=== PATIENT | male | born 1945 | race Caucasian/White ===

== ENCOUNTER 2016-06-24 13:59 | Inpatient (IN) | payer OTHER ==
[~2016-06-24] VITALS: Ht 175.3 cm; Wt 117.7 kg
[~2016-06-24 13:59] MED LIST: AGG PO; ASPI81TA28 PO; CHOL100027 PO; DONE5TAB9 PO; GLUC750C4 PO; INSUINJ14 SC; INSUINJ4 SQ; LISI-729 PO; LPT/40 PO; METF-384 PO; METO50TA16 PO; NIAC750T4 PO; OMEG12006 PO
[2016-06-24] MEDS ORDERED: ALBUT/IPRATROP 3MG/0.5MG NEB 3 ML VIAL INH STA (14:21)
[2016-06-24] MEDS ORDERED: ACETAMINOPHEN 500 MG TAB PO STA (14:21)
[2016-06-24 14:30] LABS: HEMATOCRIT 42.7 % (42-52); MEAN CELL VOLUME 93.8 fL (80-100); MEAN CORPUSCULAR HEMOGLOBIN 31.9 pg (25-34); MEAN PLATELET VOLUME 9.5 fL (7.4-10.4); PLATELET COUNT 119 K/uL (130-400); RED BLOOD COUNT 4.55 M/uL (4.7-6.1); WHITE BLOOD COUNT 8.34 K/uL (4.8-10.8)
--- NOTE | 2016-06-24 14:44 | DIAGNOSTIC IMAGING REPORT ---
SINGLE VIEW CHEST CLINICAL HISTORY: Fever. FINDINGS: An AP, portable, upright chest radiograph is compared to study dated 12/15/2015 and correlated with chest CT dated 06/23/2011. The examination is degraded by portable technique, apical positioning, and patient rotation. The heart is mildly enlarged and there is atherosclerotic calcification of the thoracic aorta. The pulmonary vasculature is noncongested. Emphysema and chronic interstitial thickening is similar to previous. Scarring and postoperative change is again seen in the left upper lobe. A trace left pleural effusion is identified. No airspace consolidation is seen typical for pneumonia. No pneumothorax is seen. The skeletal structures are osteopenic. Degenerative change is noted throughout the thoracic spine. IMPRESSION: 1. Emphysema with scarring/postoperative change in the left upper lobe. This is similar to previous. 2. There is no airspace consolidation typical for pneumonia. 3. A small pleural effusion is again noted. Electronically signed by: Rudolph Valentino M.D. 06/24/2016 2:43 PM Dictated Date/Time: 06/24/2016 2:40 PM
[2016-06-24 14:47] LABS: BUN/CREATININE RATIO 14.3 (10-20); CALCIUM 8.4 mg/dl (8.5-10.1); CREATININE 1.1 mg/dl (0.60-1.40); MAGNESIUM 1.9 mg/dl (1.8-2.4); POTASSIUM 4.2 mmol/L (3.5-5.1)
[2016-06-24 14:52] LABS: CKMB/CK RATIO 0.2 (0-3.0)
[2016-06-24 14:59] LABS: BASO % 0.1 %; BASO ABS # 0.01 K/uL (0-0.2); COMPLETE YES; IG% 0.2 %; LYMPH % 9.8 %; LYMPH ABS # 0.82 K/uL (1.2-3.4); MONO % 12.5 %; NEUT % 77.4 %
[2016-06-24] MEDS ORDERED: SODIUM CHLORIDE 0.9% 500ML 500 ML IV STA (15:21)
[2016-06-24] MEDS ORDERED: PIPERACILLIN/TAZOBACTAM 4.5 GM/100ML D5W IV STA (15:21)
[2016-06-24 15:57] LABS: URINE APPEARANCE CLEAR (CLEAR); URINE BILIRUBIN NEG (NEG); URINE COLOR DK YELLOW; URINE NITRITE NEG (NEG); URINE SPECIFIC GRAVITY 1.031 (1.000-1.030); UROBILINOGEN NEG (NEG); ZZURINE CULT IF INDIC CATH NO
[2016-06-24 15:58] LABS: MANUAL MICROSCOPIC REQUIRED? NO; REVIEW REQ? NO
[2016-06-24] MEDS ORDERED: OSELTAMIVIR PHOSPHATE 75 MG CAP PO STA (16:21)
--- NOTE | 2016-06-24 16:27 | EMERGENCY ROOM VISIT NOTE ---
History Report prepared by Kasandra: Lottie Greenberg Under the Supervision of: Dr. Guillermo Blanchard M.D. First contact with patient: 14:10 Chief Complaint: ILLNESS Stated Complaint: GENERALIZED WEAKNESS History of Present Illness The patient is a 71 year old male who presents to the Emergency Room with complaints of increased weakness that began several days ago. Per the patient' s , the patient has a history of dementia. She notes that the patient has been increasingly confused this morning. The patient's notes that the patient has been battling a cough, cold over the past several days. She notes that the patient complained of a sore throat on Tuesday and has been feeling shaky. The patient's notes that the patient's weakness has been increasing. She states that today she found the patient covered in urine. The patient's states that the patient slid out of bed today and was on the floor for about a half hour before EMS arrived to assist. She states that the patient has had a decrease in appetite and did not eat this morning. The patient's notes that the patient's blood glucose level was 105 this morning. She states that the patient has a history of diabetes, strokes, and pneumonia. The patient's denies the patient having any recent weight gain. The patient denies any chest pain or headache. Source of History: patient, spouse/significant other () Onset: several days ago Position: other (global) Quality: other (weakness) Timing: other (increasing) Associated Symptoms: + chills, + cough, + sorethroat, No chest pain, No headache Note: Associated Symptoms: increasing confusion, shaky, decrease in appetite Review of Systems See HPI for pertinent positives & negatives. A total of 10 systems reviewed and were otherwise negative. Past Medical & Surgical Medical Problems: (1) CAD (coronary artery disease) (2) Carotid stenosis (3) DM2 (diabetes mellitus, type 2) (4) History of left heart catheterization (LHC) (5) HLD (hyperlipidemia) (6) NSTEMI (non-ST elevated myocardial infarction) (7) CAROLYNN (obstructive sleep apnea) (8) SIRS (systemic inflammatory response syndrome) (9) Syncope and collapse (10) thoracoscopy (11) TIA (transient ischemic attack) (12) TIA (transient ischemic attack) (13) Vascular dementia Surgical Problems: (1) H/O carotid endarterectomy (2) H/O shoulder surgery (3) S/P drug eluting coronary stent placement Family History Diabetes mellitus FH: heart disease Hypertension Social History Smoking Status: Former Smoker Drug Use: none Marital Status: Housing Status: lives with significant other Occupation Status: retired Current/Historical Medications Scheduled Aspirin (Aspirin Ec), 81 MG PO BID Aspirin-Dipyridamole 25MG/200MG (Aggrenox 200MG/25MG), 1 CAP PO BID Atorvastatin (Lipitor), 40 MG PO DAILY Donepezil HCl (Aricept), 1 TAB PO HS Insulin Aspart (Novolog Penfill), UNITS SC ACHS Insulin Glargine (Lantus Solostar Pen), 60 UNIT SQ HS Lisinopril (Zestril), 2.5 MG PO DAILY Metformin Hcl (Glucophage), 1,000 MG PO BID Metoprolol Tartrate (Lopressor) (Lopressor), 12.5 MG PO BID Niacin (Slo-Niacin), 750 MG PO BID Allergies Coded Allergies: Clopidogrel (Verified Allergy, Unknown, Skin peeling on hands., 06/24/16) Reported by . Physical Exam Vital Signs Date Time Temp Pulse Resp B/P Pulse Ox O2 Delivery O2 Flow Rate FiO2 06/24/16 15:51 103 14 102/49 92 Nasal Cannula 2.0 06/24/16 14:07 105 06/24/16 14:03 39.1 105 30 174/81 88 Room Air Physical Exam GENERAL: Patient is ill appearing, moderate distress, improving on oxygen. Patient is warm to touch. HEENT: No acute trauma, normocephalic atraumatic, mucous membranes moist, no nasal congestion, no scleral icterus. NECK: No stridor, no adenopathy, no meningismus, trachea is midline. LUNGS: Junky cough with crackles, all lung salmon. HEART: Tachycardic rate and regular rhythm. No murmurs, rubs, gallops appreciated. ABDOMEN: Soft, nontender, bowel sounds positive, no masses appreciated, no peritonitis. BACK: No midline tenderness, no CVA tenderness EXTREMITIES: Normal motion all extremities, no cyanosis, no edema. NEUROLOGIC: Alert somewhat oriented, at baseline per . Dementia noted. SKIN: No rash, no jaundice, no diaphoresis. Medical Decision & Procedures ER Provider Diagnostic Interpretation: X ray results are stated below per my interpretation and the radiologist's interpretation. SINGLE VIEW CHEST CLINICAL HISTORY: Fever. FINDINGS: An AP, portable, upright chest radiograph is compared to study dated 12/15/2015 and correlated with chest CT dated 06/23/2011. The examination is degraded by portable technique, apical positioning, and patient rotation. The heart is mildly enlarged and there is atherosclerotic calcification of the thoracic aorta. The pulmonary vasculature is noncongested. Emphysema and chronic interstitial thickening is similar to previous. Scarring and postoperative change is again seen in the left upper lobe. A trace left pleural effusion is identified. No airspace consolidation is seen typical for pneumonia. No pneumothorax is seen. The skeletal structures are osteopenic. Degenerative change is noted throughout the thoracic spine. IMPRESSION: 1. Emphysema with scarring/postoperative change in the left upper lobe. This is similar to previous. 2. There is no airspace consolidation typical for pneumonia. 3. A small pleural effusion is again noted. Electronically signed by: Rudolph Valentino M.D. 06/24/2016 2:43 PM Dictated Date/Time: 06/24/2016 2:40 PM Laboratory Results 06/24/16 14:10 Red Blood Count 4.55, Mean Corpuscular Volume 93.8, Mean Corpuscular Hemoglobin 31.9, Mean Corpuscular Hemoglobin Concent 34.0, Mean Platelet Volume 9.5, Neutrophils (%) (Auto) 77.4, Lymphocytes (%) (Auto) 9.8, Monocytes (%) (Auto) 12.5, Eosinophils (%) (Auto) 0.0, Basophils (%) (Auto) 0.1, Neutrophils # (Auto ) 6.45, Lymphocytes # (Auto) 0.82, Monocytes # (Auto) 1.04, Eosinophils # (Auto ) 0.00, Basophils # (Auto) 0.01 06/24/16 14:10 Test 06/24/16 14:10 06/24/16 15:01 06/24/16 15:08 06/24/16 15:25 White Blood Count 8.34 K/uL (4.8-10.8) Red Blood Count 4.55 M/uL (4.7-6.1) Hemoglobin 14.5 g/dL (14.0-18.0) Hematocrit 42.7 % (42-52) Mean Corpuscular Volume 93.8 fL (80-100) Mean Corpuscular Hemoglobin 31.9 pg (25-34) Mean Corpuscular Hemoglobin Concent 34.0 g/dl (32-36) Platelet Count 119 K/uL (130-400) Mean Platelet Volume 9.5 fL (7.4-10.4) Neutrophils (%) (Auto) 77.4 % Lymphocytes (%) (Auto) 9.8 % Monocytes (%) (Auto) 12.5 % Eosinophils (%) (Auto) 0.0 % Basophils (%) (Auto) 0.1 % Neutrophils # (Auto) 6.45 K/uL (1.4-6.5) Lymphocytes # (Auto) 0.82 K/uL (1.2-3.4) Monocytes # (Auto) 1.04 K/uL (0.11-0.59) Eosinophils # (Auto) 0.00 K/uL (0-0.5) Basophils # (Auto) 0.01 K/uL (0-0.2) RDW Standard Deviation 49.2 fL (36.4-46.3) RDW Coefficient of Variation 14.4 % (11.5-14.5) Immature Granulocyte % (Auto) 0.2 % Immature Granulocyte # (Auto) 0.02 K/uL (0.00-0.02) Prothrombin Time 11.0 SECONDS (9.0-12.0) Prothromb Time International Ratio 1.0 (0.9-1.1) Anion Gap 11.0 mmol/L (3-11) Est Creatinine Clear Calc Drug Dose 79.4 ml/min Estimated GFR () 77.3 Estimated GFR (Non- 66.7 BUN/Creatinine Ratio 14.3 (10-20) Calcium Level 8.4 mg/dl (8.5-10.1) Magnesium Level 1.9 mg/dl (1.8-2.4) Total Bilirubin 0.6 mg/dl (0.2-1) Direct Bilirubin 0.1 mg/dl (0-0.2) Aspartate Amino Transf (AST/SGOT) 27 U/L (15-37) Alanine Aminotransferase (ALT/SGPT) 24 U/L (12-78) Alkaline Phosphatase 54 U/L (45-117) Total Creatine Kinase 545 U/L (39-308) Creatine Kinase MB 0.9 ng/ml (0.5-3.6) Creatine Kinase MB Ratio 0.2 (0-3.0) Troponin I 0.017 ng/ml (0-0.045) Total Protein 6.9 gm/dl (6.4-8.2) Albumin 3.3 gm/dl (3.4-5.0) Bedside Lactic Acid Venous 1.29 mmol/L (0.90-1.70) Influenza Type A Antigen POS for Influ A (NEG) Influenza Type B Antigen Neg for Influ B (NEG) Urine Color DK YELLOW Urine Appearance CLEAR (CLEAR) Urine pH 5.0 (4.5-7.5) Urine Specific [place] 1.031 (1.000-1.030) Urine Protein 3+ (NEG) Urine Glucose (UA) 2+ (NEG) Urine Ketones 1+ (NEG) Urine Occult Blood 2+ (NEG) Urine Nitrite NEG (NEG) Urine Bilirubin NEG (NEG) Urine Urobilinogen NEG (NEG) Urine Leukocyte Esterase NEG (NEG) Urine WBC (Auto) 1-5 /hpf (0-5) Urine RBC (Auto) 0-4 /hpf (0-4) Urine Hyaline Casts (Auto) 5-10 /lpf (0-5) Urine Epithelial Cells (Auto) 10-20 /lpf (0-5) Urine Bacteria (Auto) NEG (NEG) Laboratory results as reviewed by me. Medications Administered Medications (Trade) Dose Ordered Sig/Atiya Route Start Time Stop Time Status Last Admin Dose Admin Acetaminophen (Tylenol Tab) 1,000 mg NOW STAT PO 06/24/16 14:21 06/24/16 14:22 DC 06/24/16 14:45 1,000 MG Albuterol/ Ipratropium (Duoneb) 3 ml NOW STAT INH 06/24/16 14:21 06/24/16 14:22 DC 06/24/16 14:46 3 ML Piperacillin Sod/ Tazobactam Sod 4.5 gm 4.5 gm NOW STAT IV 06/24/16 15:21 06/24/16 15:23 DC 06/24/16 15:57 4.5 GM Sodium Chloride (Nss 500ml) 500 ml @ 999 mls/hr Q31M STAT IV 06/24/16 15:21 06/24/16 15:51 DC 06/24/16 15:51 999 MLS/HR ECG Indication: altered mental status Rate (beats per minute): 107 Rhythm: sinus tachycardia Findings: no acute ischemic change, no ectopy ED Course 1415: The patient was evaluated in room A4A. A complete history and physical exam was performed. 1421: Ordered DuoNeb 3 ml INH, Tylenol Tab 1000 mg PO. 1521: Ordered Sodium Chloride 500 ml @! 999 mls/hr IV, Zosyn IV 4.5 gm IV. 1607: I reevaluated the patient and he currently has an oxygen saturation of 92 % on 2 liters nasal cannula oxygen. The patient's feels that the patient is better mentally, but still has a junky cough. I discussed all the exam findings and I discussed the treatment plan. They both verbalized complete understanding and agreement. The patient will be evaluated for further treatment. 1608: I discussed the patients case with Melecio Cagle. He is going to evaluate the patient for further treatment. Medical Decision Differential: Viral, Pharyngitis, Cellulitis, Pneumonia, Influenza, Meningitis, Sepsis, Bacteremia, UTI/Pyelonephritis, Endocrine, Toxicologic, amongst other pathologies entertained. 71 yr old male arrives with fevers, confusion, cough. Hypoxia on arrival which improved with NC along with improvement in his mental status. Given fluids with improvement in HR. For temp tylenol given. noting patient back to baseline. He is too weak for her to care for at home and with hypoxia it would not be reasonable to discharge. Lungs quite poor thus given IV abx empirically. Flu returned positive thus given Tamiflu as well. Blood cultures were obtained. Lactic acid not significantly elevated. UA with ketones though no overt infection. No falls/injury and with source of infection/confusion seems reasonable to hold on CT head at this time. Consults Time Called: 1607 Consulting Physician: Melecio Cagle Returned Call: 1608 I discussed the patients case with Melecio Cagle. He is going to evaluate the patient for further treatment. Impression Primary Impression: Hypoxia Additional Impressions: Fever Altered mental status Influenza A Scribe Attestation The scribe's documentation has been prepared under my direction and personally reviewed by me in its entirety. I confirm that the note above accurately reflects all work, treatment, procedures, and medical decision making performed by me. Departure Information Dispostion Being Evaluated By Hospitalist Referrals Jabari Rodriguez M.D. (PCP) Problem Qualifiers Additional Impressions: Fever Fever type: unspecified Qualified Codes: R50.9 - Fever, unspecified Altered mental status Altered mental status type: transient alteration of awareness Qualified Codes : R40.4 - Transient alteration of awareness
[2016-06-24] MEDS ORDERED: ONDANSETRON INJ 2 MG/ML 2 ML VIAL IV PRN (16:45)
[2016-06-24] MEDS ORDERED: LEVALBUTEROL 1.25MG/3ML NEB INH PRN (16:45)
[2016-06-24] MEDS ORDERED: ACETAMINOPHEN 325 MG TAB PO PRN (16:45)
[2016-06-24] MEDS ORDERED: GLUCOSE 40% GEL 15 GM TUBE PO PRN (17:00)
[2016-06-24] MEDS ORDERED: GLUCOSE 10 TABS/TUBE PO PRN (17:00)
[2016-06-24] MEDS ORDERED: GLUCAGON FOR INJ 1 MG VIAL SQ PRN (17:00)
[2016-06-24] MEDS ORDERED: DEXTROSE 50% 50 ML SYR IV PRN (17:00)
[2016-06-24] MEDS ORDERED: GUAIFENESIN/CODEINE 100MG/10MG 5ML UDC PO PRN (17:30)
--- NOTE | 2016-06-24 17:30 | History and Physical ---
History & Physical Date & Time of Service: Jun 24, 2016 at 16:57 Chief Complaint: Generalized Weakness Primary Care Physician: Jabari Rodriguez M.D. History of Present Illness Source: patient, family, clinic records, hospital records Patient seen and examined. 71 year old male with PMHx of Dementia, IDDM, CAD, HTN, COPD, TIA, CAROLYNN and other problems listed below presents to the ED with generalized weakness x 1 day. Patient reports he has been having URI like symptoms for about a week, a cough, rhinorrhea sore throat. Today he has become generally weak. reports that this morning he slid out of bed and he wasn't able to get up without help. She reports he has been sleeping a lot and shaky. She states he has no strength and poor po intake. She reports he has had fevers at home around 101. Patient denies chest pain, SOB, nausea, vomiting, diarrhea, dysuria, calf pain and edema. He denies sick contacts. reports confusion is at baseline. He received the flu vaccine this year. In the ED patient is mildly tachycardic, he is febrile at 102.38F, he is mildly hypoxic on RA but saturating well on 2L NC. WBC count and lactate are WNL. Flu swab is positive for Flu A. He received IVFs, Zosyn and Tylenol and Tamiflu. He is resting comfortably. He will be admitted for further workup and treatment. Past Medical/Surgical History Medical Problems: (1) CAD (coronary artery disease) Status: Chronic (2) Carotid stenosis Status: Chronic (3) DM2 (diabetes mellitus, type 2) Status: Chronic (4) History of left heart catheterization (LHC) Status: Chronic (5) HLD (hyperlipidemia) Status: Chronic (6) NSTEMI (non-ST elevated myocardial infarction) Status: Chronic (7) CAROLYNN (obstructive sleep apnea) Status: Chronic (8) thoracoscopy Permanent Comment: benign mass-left lung. wedge resection/VATS Status: Chronic (9) TIA (transient ischemic attack) Status: Chronic (10) Vascular dementia Status: Chronic Surgical Problems: (1) H/O carotid endarterectomy Status: Chronic (2) H/O shoulder surgery Status: Chronic (3) S/P drug eluting coronary stent placement Permanent Comment: RCA 2012 Status: Chronic Family History Diabetes mellitus FH: heart disease Hypertension Social History Smoking Status: Former Smoker Alcohol Use: none Drug Use: none Marital Status: Housing status: lives with family Occupational Status: retired Immunizations History of Influenza Vaccine: Yes Influenza Vaccine Date: Mar 29, 2013 History of Tetanus Vaccine?: Yes Tetanus Immunization Date: May 29, 2013 History of Pneumococcal: Yes Pneumococcal Date: Mar 29, 2013 History of Hepatitis B Vaccine: No Allergies Coded Allergies: Clopidogrel (Verified Allergy, Unknown, Skin peeling on hands., 06/24/16) Reported by . Home Medications Scheduled Aspirin (Aspirin Ec), 81 MG PO BID Aspirin-Dipyridamole 25MG/200MG (Aggrenox 200MG/25MG), 1 CAP PO BID Atorvastatin (Lipitor), 40 MG PO DAILY Donepezil HCl (Aricept), 1 TAB PO HS Insulin Aspart (Novolog Penfill), UNITS SC ACHS Insulin Glargine (Lantus Solostar Pen), 60 UNIT SQ HS Lisinopril (Zestril), 2.5 MG PO DAILY Metformin Hcl (Glucophage), 1,000 MG PO BID Metoprolol Tartrate (Lopressor) (Lopressor), 12.5 MG PO BID Niacin (Slo-Niacin), 750 MG PO BID Review of Systems See above for pertinent positives & negatives. A total of 10 systems reviewed and were otherwise negative. Physical Exam Vital Signs Date Time Temp Pulse Resp B/P Pulse Ox O2 Delivery O2 Flow Rate FiO2 06/24/16 15:51 103 14 102/49 92 Nasal Cannula 2.0 06/24/16 14:07 105 06/24/16 14:03 39.1 105 30 174/81 88 Room Air General Appearance: + pertinent finding Head: normocephalic, atraumatic Eyes: PERRL, EOMI, sclerae normal ENT: hearing grossly normal, pharynx normal Neck: supple, no JVD Respiratory/Chest: chest non-tender, lungs clear, normal breath sounds, no respiratory distress, no accessory muscle use, + pertinent finding (coughed throughout exam ) Cardiovascular: no edema, no gallop, no JVD, no murmur, normal peripheral pulses, + tachycardia (low 100s) Abdomen/GI: normal bowel sounds, non tender, soft Back: normal inspection, no muscle spasm Extremities/Musculoskelatal: no calf tenderness, normal capillary refill, no pedal edema Neurologic/Psych: alert, oriented x 3, + pertinent finding (no motor or sensory deficits noted on gross exam ) Skin: normal color, warm/dry, no rash Lymphatic: no adenopathy Diagnostics Laboratory Results Results Past 24 Hours Test 06/24/16 14:10 06/24/16 15:01 06/24/16 15:08 06/24/16 15:25 Range/Units White Blood Count 8.34 4.8-10.8 K/uL Red Blood Count 4.55 4.7-6.1 M/uL Hemoglobin 14.5 14.0-18.0 g/dL Hematocrit 42.7 42-52 % Mean Corpuscular Volume 93.8 80-100 fL Mean Corpuscular Hemoglobin 31.9 25-34 pg Mean Corpuscular Hemoglobin Concent 34.0 32-36 g/dl Platelet Count 119 130-400 K/uL Mean Platelet Volume 9.5 7.4-10.4 fL Neutrophils (%) (Auto) 77.4 % Lymphocytes (%) (Auto) 9.8 % Monocytes (%) (Auto) 12.5 % Eosinophils (%) (Auto) 0.0 % Basophils (%) (Auto) 0.1 % Neutrophils # (Auto) 6.45 1.4-6.5 K/uL Lymphocytes # (Auto) 0.82 1.2-3.4 K/uL Monocytes # (Auto) 1.04 0.11-0.59 K/uL Eosinophils # (Auto) 0.00 0-0.5 K/uL Basophils # (Auto) 0.01 0-0.2 K/uL RDW Standard Deviation 49.2 36.4-46.3 fL RDW Coefficient of Variation 14.4 11.5-14.5 % Immature Granulocyte % (Auto) 0.2 % Immature Granulocyte # (Auto) 0.02 0.00-0.02 K/uL Prothrombin Time 11.0 9.0-12.0 SECONDS Prothromb Time International Ratio 1.0 0.9-1.1 Sodium Level 136 136-145 mmol/L Potassium Level 4.2 3.5-5.1 mmol/L Chloride Level 99 98-107 mmol/L Carbon Dioxide Level 26 21-32 mmol/L Anion Gap 11.0 3-11 mmol/L Blood Urea Nitrogen 16 7-18 mg/dl Creatinine 1.10 0.60-1.40 mg/dl Est Creatinine Clear Calc Drug Dose 79.4 ml/min Estimated GFR () 77.3 Estimated GFR (Non- 66.7 BUN/Creatinine Ratio 14.3 10-20 Random Glucose 171 70-99 mg/dl Calcium Level 8.4 8.5-10.1 mg/dl Magnesium Level 1.9 1.8-2.4 mg/dl Total Bilirubin 0.6 0.2-1 mg/dl Direct Bilirubin 0.1 0-0.2 mg/dl Aspartate Amino Transf (AST/SGOT) 27 15-37 U/L Alanine Aminotransferase (ALT/SGPT) 24 12-78 U/L Alkaline Phosphatase 54 45-117 U/L Total Creatine Kinase 545 39-308 U/L Creatine Kinase MB 0.9 0.5-3.6 ng/ml Creatine Kinase MB Ratio 0.2 0-3.0 Troponin I 0.017 0-0.045 ng/ml Total Protein 6.9 6.4-8.2 gm/dl Albumin 3.3 3.4-5.0 gm/dl Bedside Lactic Acid Venous 1.29 0.90-1.70 mmol/L Influenza Type A Antigen POS for Influ A NEG Influenza Type B Antigen Neg for Influ B NEG Urine Color DK YELLOW Urine Appearance CLEAR CLEAR Urine pH 5.0 4.5-7.5 Urine Specific [place] 1.031 1.000-1.030 Urine Protein 3+ NEG Urine Glucose (UA) 2+ NEG Urine Ketones 1+ NEG Urine Occult Blood 2+ NEG Urine Nitrite NEG NEG Urine Bilirubin NEG NEG Urine Urobilinogen NEG NEG Urine Leukocyte Esterase NEG NEG Urine WBC (Auto) 1-5 0-5 /hpf Urine RBC (Auto) 0-4 0-4 /hpf Urine Hyaline Casts (Auto) 5-10 0-5 /lpf Urine Epithelial Cells (Auto) 10-20 0-5 /lpf Urine Bacteria (Auto) NEG NEG Microbiology Results 06/24/16 Blood Culture, Received Pending 06/24/16 Blood Culture, Received Pending Diagnostic Radiology CXR Per radiologist read: IMPRESSION: 1. Emphysema with scarring/postoperative change in the left upper lobe. This is similar to previous. 2. There is no airspace consolidation typical for pneumonia. 3. A small pleural effusion is again noted. EKG Sinus Tach 107 BPM, QTc 424 Impression Assessment and Plan 71 year old male presents to the ED with URI symptoms, and generalized weakness. INFLUENZA A -Admit to tele -Tamiflu started in ED -Gentle IVF hydration -Tylenol prn fever -cough suppressants, nebs prn -CBC, PRP, Mg daily SIRS - presents with Fever, Tachycardia -no leukocytosis, lactate normal -CXR without obvious infection, UA negative -Does have Influenza A - treatment as above -Empirically treat for bacteria infection -pulmonary source with Doxycycline and Rocephin -Sputum and blood cultures pending -monitor in tele GENERALIZED WEAKNESS -likely secondary to acute illness -PT/OT evals IDDM -A1c 9 -SSI coverage -Decrease Lantus to avoid hypoglycemia with poor po intake -hold metformin -BSG AC HS -consistent carb diet CAD -stable -continue ASA, Statin, BB HTN -stable -continue BB -hold lisinopril to avoid hypotension CAROLYNN -may use home CPAP, went to bring HLD -continue Statin H/O TIA -continue Aggrenox, and statin DEMENTIA -at baseline per -continue Aricept DVT PROPHYLAXIS: Sq Heparin CODE STATUS: FULL CODE per my discussion with the patient and his DISPO:In my clinical judgment this beneficiary meets acute admission criteria, established by [facility], that includes being hospitalized through two midnights. Discharge planning eval Patient seen in collaboration with Dr. Strickland Agree with above h and P.Briefly 71Y M presented with URI symptoms for one week generalized weakness for a day and today slid down from bed and couldn't get up and running fevers and was brought to ER.Found to have influenz a postive. Denies sob or chest pain. BP stable. 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 Y/N: Yes Risk Level: Moderate
[2016-06-24 21:27] VITALS: BP 150/74; PULSE 91; TEMP 37.3; Ht 175.3 cm; Wt 117.7 kg
[2016-06-24 21:34] VITALS: O2SAT 93
[2016-06-24] MEDS: INSULIN ASPART 100 UNITS/ML 3 ML PEN SC SCH (22:00)
[2016-06-24] MEDS: SODIUM CHLORIDE 0.9% 1000ML 1,000 ML IV SCH (22:03)
[2016-06-24] MEDS: CEFTRIAXONE SOD INJ 1 GM in DEXTROSE 5% ADD-VANTAGE 50ML 50 ML IV SCH (22:34)
[2016-06-24] MEDS: DIPYRIDAMOLE/ASPIRIN CAP PO SCH (22:35)
[2016-06-24] MEDS: DONEPEZIL HCL 5 MG TAB PO SCH (22:35)
[2016-06-24] MEDS: ASPIRIN 81 MG ECTAB PO SCH (22:35)
[2016-06-24] MEDS: DOXYCYCLINE HYCLATE 100 MG CAP PO SCH (22:36)
[2016-06-24] MEDS: METOPROLOL TARTRATE 25 MG TAB PO SCH (22:36)
[2016-06-24] MEDS: INSULIN GLARGINE SOLOSTAR 100 UNITS/ML 3 ML PEN SC SCH (23:00)
[2016-06-25] VITALS (9 sets, daily range): BP systolic 110–150; BP diastolic 64–76; PULSE 80–101; TEMP 36.2–37.1; O2SAT 88–94
[2016-06-25] MEDS: HEPARIN SOD 5000 UNIT/0.5 ML CARP SQ SCH ×3 (06:00→20:33)
[2016-06-25 07:21] LABS: BASO % 0.1 %; BASO ABS # 0.01 K/uL (0-0.2); COMPLETE YES; EOS % 0.3 %; HEMATOCRIT 41.1 % (42-52); IG% 0.1 %; LYMPH % 15.6 %; LYMPH ABS # 1.09 K/uL (1.2-3.4); MEAN CELL VOLUME 93.6 fL (80-100); MEAN CORPUSCULAR HEMOGLOBIN 31.7 pg (25-34); MEAN CORPUSCULAR HGB CONC 33.8 g/dl (32-36); MEAN PLATELET VOLUME 9.7 fL (7.4-10.4); MONO % 11.6 %; NEUT % 72.3 %; PLATELET COUNT 104 K/uL (130-400); RED BLOOD COUNT 4.39 M/uL (4.7-6.1); WHITE BLOOD COUNT 6.97 K/uL (4.8-10.8)
[2016-06-25 07:57] LABS: BUN/CREATININE RATIO 16.3 (10-20); CALCIUM 8.1 mg/dl (8.5-10.1); CREATININE 0.87 mg/dl (0.60-1.40); MAGNESIUM 2.1 mg/dl (1.8-2.4); POTASSIUM 4.1 mmol/L (3.5-5.1)
[2016-06-25] MEDS: INSULIN ASPART 100 UNITS/ML 3 ML PEN SC SCH ×4 (08:19→20:06)
[2016-06-25] MEDS: ATORVASTATIN 40 MG TAB PO SCH (08:23)
[2016-06-25] MEDS: METOPROLOL TARTRATE 25 MG TAB PO SCH ×2 (08:23→20:32)
[2016-06-25] MEDS: DOXYCYCLINE HYCLATE 100 MG CAP PO SCH ×2 (08:23→20:31)
[2016-06-25] MEDS: ASPIRIN 81 MG ECTAB PO SCH ×2 (08:23→20:32)
[2016-06-25] MEDS: OSELTAMIVIR PHOSPHATE 75 MG CAP PO SCH ×2 (08:23→20:31)
[2016-06-25] MEDS: DIPYRIDAMOLE/ASPIRIN CAP PO SCH ×2 (08:23→20:32)
[2016-06-25] MEDS: SODIUM CHLORIDE 0.9% 1000ML 1,000 ML IV SCH (11:28)
--- NOTE | 2016-06-25 12:52 | Progress Note ---
Internal Med Progress Note Date of Service: Jun 25, 2016. Provider Documentation: SUBJECTIVE: Patient is seen and examined at bedside. "I feel OK" Denies any chest pain, SOB , abd pain. OBJECTIVE: Vital Signs-as noted below Physical Exam: General Appearance:Obese, no apparent distress Head: normocephalic, Atraumatic Eyes: normal inspection, EOMI, PERRLA Neck: supple, Trachea midline Respiratory/Chest: Decreased breath sounds, CTA, No accessory muscle use Cardiovascular: S1, S2, No murmur Abdomen/GI:Soft, Non tender, Bowel sounds present Extremities/Musculoskelatal:normal inspection, no edema Neurologic/Psych:AAOX3, grossly no focal neurological deficits Skin: normal color, warm Lab data as noted below. ASSESSMENT & PLAN: 71 year old male presents to the ED with URI symptoms, and generalized weakness. INFLUENZA A Continue Tamiflu S/P IVF Oxygen per protocol Supportive care SIRS presented with Fever, Tachycardia No leukocytosis, lactate normal Sepsis criteria resolved CXR:No obvious infection, UA negative DC IVF Continue empiric Doxycycline and Rocephin Sputum and blood cultures pending GENERALIZED WEAKNESS likely secondary to acute illness PT/OT IDDM Last A1c 9 SSI coverage, Lantus Hold metformin BSG AC HS CAD stable continue ASA, Statin, BB HTN stable continue BB hold lisinopril for now CAROLYNN Continue home CPAP HLD continue Statin H/O TIA continue Aggrenox, and statin DEMENTIA At baseline per continue Aricept DVT PX: Sq Heparin CODE STATUS: FULL CODE per my discussion with the patient and his DISPOSITION: Will transfer to medical floor Vital Signs: Date Time Temp Pulse Resp B/P Pulse Ox O2 Delivery O2 Flow Rate FiO2 06/25/16 11:51 37.0 87 20 115/65 93 Nasal Cannula 2.0 06/25/16 08:00 36.2 94 24 136/74 93 Nasal Cannula 2.0 06/25/16 08:00 93 Nasal Cannula 2.0 06/25/16 04:38 93 Nasal Cannula 3.0 06/25/16 04:35 36.6 95 22 133/75 88 Room Air 06/25/16 04:00 Room Air 3.0 06/25/16 00:14 37.1 101 22 147/68 91 Room Air 06/25/16 00:05 Room Air 3.0 06/24/16 21:34 93 Nasal Cannula 3.0 06/24/16 21:27 37.3 91 20 150/74 06/24/16 20:39 88 27 95 06/24/16 20:31 135/104 06/24/16 20:09 96 18 94 06/24/16 20:04 90 28 95 06/24/16 19:34 96 16 96 06/24/16 19:29 90 21 95 06/24/16 19:19 127/61 06/24/16 18:59 102 26 94 06/24/16 18:29 91 15 94 06/24/16 17:59 95 27 96 06/24/16 17:29 92 22 94 06/24/16 17:19 36.7 124/56 06/24/16 16:59 93 9 91 06/24/16 16:29 98 14 92 06/24/16 15:59 101 17 93 06/24/16 15:51 103 14 102/49 92 Nasal Cannula 2.0 06/24/16 15:47 102/49 06/24/16 15:29 105 31 06/24/16 14:59 101 35 06/24/16 14:29 104 35 06/24/16 14:07 105 06/24/16 14:04 174/81 06/24/16 14:03 39.1 105 30 174/81 88 Room Air Lab Results: Results Past 24 Hours Test 06/24/16 14:10 06/24/16 15:01 06/24/16 15:08 06/24/16 15:25 Range/Units White Blood Count 8.34 4.8-10.8 K/uL Red Blood Count 4.55 4.7-6.1 M/uL Hemoglobin 14.5 14.0-18.0 g/dL Hematocrit 42.7 42-52 % Mean Corpuscular Volume 93.8 80-100 fL Mean Corpuscular Hemoglobin 31.9 25-34 pg Mean Corpuscular Hemoglobin Concent 34.0 32-36 g/dl Platelet Count 119 130-400 K/uL Mean Platelet Volume 9.5 7.4-10.4 fL Neutrophils (%) (Auto) 77.4 % Lymphocytes (%) (Auto) 9.8 % Monocytes (%) (Auto) 12.5 % Eosinophils (%) (Auto) 0.0 % Basophils (%) (Auto) 0.1 % Neutrophils # (Auto) 6.45 1.4-6.5 K/uL Lymphocytes # (Auto) 0.82 1.2-3.4 K/uL Monocytes # (Auto) 1.04 0.11-0.59 K/uL Eosinophils # (Auto) 0.00 0-0.5 K/uL Basophils # (Auto) 0.01 0-0.2 K/uL RDW Standard Deviation 49.2 36.4-46.3 fL RDW Coefficient of Variation 14.4 11.5-14.5 % Immature Granulocyte % (Auto) 0.2 % Immature Granulocyte # (Auto) 0.02 0.00-0.02 K/uL Prothrombin Time 11.0 9.0-12.0 SECONDS Prothromb Time International Ratio 1.0 0.9-1.1 Sodium Level 136 136-145 mmol/L Potassium Level 4.2 3.5-5.1 mmol/L Chloride Level 99 98-107 mmol/L Carbon Dioxide Level 26 21-32 mmol/L Anion Gap 11.0 3-11 mmol/L Blood Urea Nitrogen 16 7-18 mg/dl Creatinine 1.10 0.60-1.40 mg/dl Est Creatinine Clear Calc Drug Dose 79.4 ml/min Estimated GFR () 77.3 Estimated GFR (Non- 66.7 BUN/Creatinine Ratio 14.3 10-20 Random Glucose 171 70-99 mg/dl Calcium Level 8.4 8.5-10.1 mg/dl Magnesium Level 1.9 1.8-2.4 mg/dl Total Bilirubin 0.6 0.2-1 mg/dl Direct Bilirubin 0.1 0-0.2 mg/dl Aspartate Amino Transf (AST/SGOT) 27 15-37 U/L Alanine Aminotransferase (ALT/SGPT) 24 12-78 U/L Alkaline Phosphatase 54 45-117 U/L Total Creatine Kinase 545 39-308 U/L Creatine Kinase MB 0.9 0.5-3.6 ng/ml Creatine Kinase MB Ratio 0.2 0-3.0 Troponin I 0.017 0-0.045 ng/ml Total Protein 6.9 6.4-8.2 gm/dl Albumin 3.3 3.4-5.0 gm/dl Bedside Lactic Acid Venous 1.29 0.90-1.70 mmol/L Influenza Type A Antigen POS for Influ A NEG Influenza Type B Antigen Neg for Influ B NEG Urine Color DK YELLOW Urine Appearance CLEAR CLEAR Urine pH 5.0 4.5-7.5 Urine Specific Evans 1.031 1.000-1.030 Urine Protein 3+ NEG Urine Glucose (UA) 2+ NEG Urine Ketones 1+ NEG Urine Occult Blood 2+ NEG Urine Nitrite NEG NEG Urine Bilirubin NEG NEG Urine Urobilinogen NEG NEG Urine Leukocyte Esterase NEG NEG Urine WBC (Auto) 1-5 0-5 /hpf Urine RBC (Auto) 0-4 0-4 /hpf Urine Hyaline Casts (Auto) 5-10 0-5 /lpf Urine Epithelial Cells (Auto) 10-20 0-5 /lpf Urine Bacteria (Auto) NEG NEG Test 06/24/16 21:48 06/25/16 06:43 06/25/16 06:47 06/25/16 10:44 Range/Units Bedside Glucose 230 163 192 70-99 mg/dl White Blood Count 6.97 4.8-10.8 K/uL Red Blood Count 4.39 4.7-6.1 M/uL Hemoglobin 13.9 14.0-18.0 g/dL Hematocrit 41.1 42-52 % Mean Corpuscular Volume 93.6 80-100 fL Mean Corpuscular Hemoglobin 31.7 25-34 pg Mean Corpuscular Hemoglobin Concent 33.8 32-36 g/dl Platelet Count 104 130-400 K/uL Mean Platelet Volume 9.7 7.4-10.4 fL Neutrophils (%) (Auto) 72.3 % Lymphocytes (%) (Auto) 15.6 % Monocytes (%) (Auto) 11.6 % Eosinophils (%) (Auto) 0.3 % Basophils (%) (Auto) 0.1 % Neutrophils # (Auto) 5.03 1.4-6.5 K/uL Lymphocytes # (Auto) 1.09 1.2-3.4 K/uL Monocytes # (Auto) 0.81 0.11-0.59 K/uL Eosinophils # (Auto) 0.02 0-0.5 K/uL Basophils # (Auto) 0.01 0-0.2 K/uL RDW Standard Deviation 49.0 36.4-46.3 fL RDW Coefficient of Variation 14.2 11.5-14.5 % Immature Granulocyte % (Auto) 0.1 % Immature Granulocyte # (Auto) 0.01 0.00-0.02 K/uL Sodium Level 137 136-145 mmol/L Potassium Level 4.1 3.5-5.1 mmol/L Chloride Level 103 98-107 mmol/L Carbon Dioxide Level 25 21-32 mmol/L Anion Gap 9.0 3-11 mmol/L Blood Urea Nitrogen 14 7-18 mg/dl Creatinine 0.87 0.60-1.40 mg/dl Est Creatinine Clear Calc Drug Dose 97.2 ml/min Estimated GFR () 99.9 Estimated GFR (Non- 86.2 BUN/Creatinine Ratio 16.3 10-20 Random Glucose 166 70-99 mg/dl Calcium Level 8.1 8.5-10.1 mg/dl Magnesium Level 2.1 1.8-2.4 mg/dl Microbiology Results 06/24/16 Blood Culture, Received Pending 06/24/16 Blood Culture, Received Pending
--- NOTE | 2016-06-25 12:57 | Clinical Documentation Query ---
QUERY 1 OF [address] ROBLES, In your clinical opinion is this patient being managed for: ( x ) SIRS due to a noninfectious process/Influenza with encephalopathy ( ) Sepsis due to influenza ( ) Other explanation of clinical findings (Please Explain) ( ) Unable to determine (Please Define) ( ) Need to Discuss ( ) Not Agree The medical record reflects the following clinical findings, treatment, and risk factors. Clinical Indicators: 71 yo male presented with fever/confusion and weakness. VS 39.1-105-30 174/81, 88% on RA. Treatment: APAP, IV fluid bolus then continuous, tamiflu, IV rocephin, IV doxycycline Risk Factors: age, DM, influenza QUERY 2 OF 2 In your clinical opinion is this patient being managed for: ( x ) Encephalopathy improved with IVs, tylenol and O2 support ( ) Other explanation of clinical findings (Please Explain) ( ) Unable to determine (Please Define) ( ) Need to Discuss ( ) Not Agree The medical record reflects the following clinical findings, treatment, and risk factors. Clinical Indicators: 71 yo male presenting to ER reportedly with increasing confusion. Documentation in ER indicates pt returned to his baseline (dementia) following ER treatment. Treatment: O2 support, IV fluid bolus then continuous, IV zosyn, duonebs, tylenol Risk Factors: influenza A, hypoxia, preexisting dementia Please clarify and document your clinical opinion in the progress notes and discharge summary. Terms such as "probable", "suspected", "likely", "questionable", "possible", or "still to be ruled out" are acceptable. IF IN AGREEMENT, YOU MUST DOCUMENT ABOVE DIAGNOSTIC STATEMENT IN DAILY PROGRESS NOTES AND DISCHARGE SUMMARY. This document is not part of the patient's record. Angie Martins RN, CDS ext [phone]
[2016-06-25] MEDS: INSULIN GLARGINE SOLOSTAR 100 UNITS/ML 3 ML PEN SC SCH (20:04)
[2016-06-25] MEDS: DONEPEZIL HCL 5 MG TAB PO SCH (20:32)
[2016-06-25] MEDS: CEFTRIAXONE SOD INJ 1 GM in DEXTROSE 5% ADD-VANTAGE 50ML 50 ML IV SCH (22:20)
[2016-06-26] MEDS: HEPARIN SOD 5000 UNIT/0.5 ML CARP SQ SCH (06:08)
[2016-06-26 07:12] LABS: BASO % 0.4 %; BASO ABS # 0.02 K/uL (0-0.2); COMPLETE YES; EOS % 1.2 %; HEMATOCRIT 41.4 % (42-52); IG% 0.2 %; LYMPH % 19.1 %; LYMPH ABS # 0.94 K/uL (1.2-3.4); MEAN CELL VOLUME 93.5 fL (80-100); MEAN CORPUSCULAR HEMOGLOBIN 31.4 pg (25-34); MEAN CORPUSCULAR HGB CONC 33.6 g/dl (32-36); MEAN PLATELET VOLUME 9.4 fL (7.4-10.4); NEUT % 68.1 %; PLATELET COUNT 103 K/uL (130-400); RED BLOOD COUNT 4.43 M/uL (4.7-6.1); WHITE BLOOD COUNT 4.93 K/uL (4.8-10.8)
[2016-06-26 07:31] VITALS: BP 143/80; PULSE 83; TEMP 37; O2SAT 95
[2016-06-26] MEDS: DIPYRIDAMOLE/ASPIRIN CAP PO SCH (07:43)
[2016-06-26] MEDS: DOXYCYCLINE HYCLATE 100 MG CAP PO SCH (07:44)
[2016-06-26] MEDS: METOPROLOL TARTRATE 25 MG TAB PO SCH (07:44)
[2016-06-26] MEDS: OSELTAMIVIR PHOSPHATE 75 MG CAP PO SCH (07:44)
[2016-06-26] MEDS: ASPIRIN 81 MG ECTAB PO SCH (07:44)
[2016-06-26] MEDS: ATORVASTATIN 40 MG TAB PO SCH (07:44)
[2016-06-26 07:55] LABS: BUN/CREATININE RATIO 18.8 (10-20); CALCIUM 8.3 mg/dl (8.5-10.1); CREATININE 0.86 mg/dl (0.60-1.40)
--- NOTE | 2016-06-26 10:03 | Progress Note ---
Internal Med Progress Note Date of Service: Jun 26, 2016. Provider Documentation: SUBJECTIVE: Patient is seen and examined at bedside. Reports feeling well. Denies any chest pain, SOB,fever, chills. Family at bedside, believes patient is back to his baseline and prefers to take him home. OBJECTIVE: Vital Signs-as noted below Physical Exam: General Appearance:Obese, no apparent distress Head: normocephalic, Atraumatic Eyes: normal inspection, EOMI, PERRLA Neck: supple, Trachea midline Respiratory/Chest: Decreased breath sounds, CTA, No accessory muscle use Cardiovascular: S1, S2, No murmur Abdomen/GI:Soft, Non tender, Bowel sounds present Extremities/Musculoskelatal:normal inspection, no edema Neurologic/Psych:AAOX3, grossly no focal neurological deficits Skin: normal color, warm Lab data as noted below. ASSESSMENT & PLAN: 71 year old male presents to the ED with URI symptoms, and generalized weakness. INFLUENZA A Continue Tamiflu for a total of 5 days S/P IVF Oxygen per protocol Supportive care SIRS Resolved presented with Fever, Tachycardia No leukocytosis, lactate normal CXR:No obvious infection, UA negative S/P IVF Will discontinue empiric Doxycycline and Rocephin Blood cultures:No growth to date GENERALIZED WEAKNESS likely secondary to acute illness PT/OT IDDM Last A1c 9 SSI coverage, Lantus Hold metformin BSG AC HS CAD stable continue ASA, Statin, BB HTN stable continue BB hold lisinopril for now CAROLYNN Continue home CPAP HLD continue Statin H/O TIA continue Aggrenox, and statin DEMENTIA At baseline per continue Aricept DVT PX: Sq Heparin CODE STATUS: FULL CODE per my discussion with the patient and his DISPOSITION: Plan to discharge home today. Follow up with on Jul 05, 2016 at 12:30pm Vital Signs: Date Time Temp Pulse Resp B/P Pulse Ox O2 Delivery O2 Flow Rate FiO2 06/26/16 07:50 Nasal Cannula 1.5 06/26/16 07:31 37.0 83 16 143/80 95 Nasal Cannula 2.0 06/26/16 00:00 Nasal Cannula 2.0 06/25/16 23:52 36.8 80 20 110/64 92 Nasal Cannula 2.0 06/25/16 20:00 Nasal Cannula 2.0 06/25/16 19:57 80 150/76 06/25/16 16:00 Nasal Cannula 2.0 06/25/16 15:55 36.6 81 18 126/66 94 Nasal Cannula 2.0 06/25/16 14:31 37.0 87 20 93 2.0 06/25/16 12:00 Nasal Cannula 2.0 06/25/16 11:51 37.0 87 20 115/65 93 Nasal Cannula 2.0 Lab Results: Results Past 24 Hours Test 06/25/16 10:44 06/25/16 16:44 06/25/16 20:02 06/26/16 06:36 Range/Units Bedside Glucose 192 201 206 70-99 mg/dl White Blood Count 4.93 4.8-10.8 K/uL Red Blood Count 4.43 4.7-6.1 M/uL Hemoglobin 13.9 14.0-18.0 g/dL Hematocrit 41.4 42-52 % Mean Corpuscular Volume 93.5 80-100 fL Mean Corpuscular Hemoglobin 31.4 25-34 pg Mean Corpuscular Hemoglobin Concent 33.6 32-36 g/dl Platelet Count 103 130-400 K/uL Mean Platelet Volume 9.4 7.4-10.4 fL Neutrophils (%) (Auto) 68.1 % Lymphocytes (%) (Auto) 19.1 % Monocytes (%) (Auto) 11.0 % Eosinophils (%) (Auto) 1.2 % Basophils (%) (Auto) 0.4 % Neutrophils # (Auto) 3.36 1.4-6.5 K/uL Lymphocytes # (Auto) 0.94 1.2-3.4 K/uL Monocytes # (Auto) 0.54 0.11-0.59 K/uL Eosinophils # (Auto) 0.06 0-0.5 K/uL Basophils # (Auto) 0.02 0-0.2 K/uL RDW Standard Deviation 48.6 36.4-46.3 fL RDW Coefficient of Variation 14.2 11.5-14.5 % Immature Granulocyte % (Auto) 0.2 % Immature Granulocyte # (Auto) 0.01 0.00-0.02 K/uL Sodium Level 141 136-145 mmol/L Potassium Level 4.0 3.5-5.1 mmol/L Chloride Level 106 98-107 mmol/L Carbon Dioxide Level 24 21-32 mmol/L Anion Gap 11.0 3-11 mmol/L Blood Urea Nitrogen 16 7-18 mg/dl Creatinine 0.86 0.60-1.40 mg/dl Est Creatinine Clear Calc Drug Dose 98.3 ml/min Estimated GFR () 100.4 Estimated GFR (Non- 86.6 BUN/Creatinine Ratio 18.8 10-20 Random Glucose 143 70-99 mg/dl Calcium Level 8.3 8.5-10.1 mg/dl Test 06/26/16 07:36 Range/Units Bedside Glucose 139 70-99 mg/dl
[2016-06-26] MEDS: INSULIN ASPART 100 UNITS/ML 3 ML PEN SC SCH (10:12)
[2016-06-26] MEDS ORDERED: TMF75 PO (10:13)
--- NOTE | 2016-06-26 10:19 | Discharge Summary ---
Discharge Summary Admission Date: Jun 24, 2016 at 16:47 Discharge Date: Jun 26, 2016 Discharge Disposition: Home Principal Diagnosis: Influenza A Procedures: CXR: 1. Emphysema with scarring/postoperative change in the left upper lobe. This is similar to previous. 2. There is no airspace consolidation typical for pneumonia. 3. A small pleural effusion is again noted. Consultations: None Pending Studies/Follow-Up: Follow up with on Jul 05, 2016 at 12:30pm Medication Reconciliation New Medications: Oseltamivir Phosphate (Tamiflu) 75 Mg Cap 75 MG PO BID for 4 Days, #8 CAP Continued Medications: Aspirin (Aspirin Ec) 81 Mg Tab 81 MG PO BID Aspirin-Dipyridamole 25MG/200MG (Aggrenox 200MG/25MG) 1 Cap Cap 1 CAP PO BID, CAP Atorvastatin (Lipitor) 40 Mg Tab 40 MG PO DAILY Donepezil HCl (Aricept) 5 Mg Tab 1 TAB PO HS Insulin Aspart (Novolog Penfill) 100 Unit/ Inj UNITS SC ACHS SLIDING SCALE Insulin Glargine (Lantus Solostar Pen) 100 Unit/ Inj 60 UNIT SQ HS for 90 Days, #15 ML 3 Refills Lisinopril (Zestril) 5 Mg Tab 2.5 MG PO DAILY for 30 Days, #15 TAB Metformin Hcl (Glucophage) 1,000 Mg Tab 1000 MG PO BID Metoprolol Tartrate (Lopressor) (Lopressor) 50 Mg Tab 12.5 MG PO BID Niacin (Slo-Niacin) 750 Mg Tab 750 MG PO BID Admission Information HPI (per Admitting provider): Patient seen and examined. 71 year old male with PMHx of Dementia, IDDM, CAD, HTN, COPD, TIA, CAROYLNN and other problems listed below presents to the ED with generalized weakness x 1 day. Patient reports he has been having URI like symptoms for about a week, a cough, rhinorrhea sore throat. Today he has become generally weak. reports that this morning he slid out of bed and he wasn't able to get up without help. She reports he has been sleeping a lot and shaky. She states he has no strength and poor po intake. She reports he has had fevers at home around 101. Patient denies chest pain, SOB, nausea, vomiting, diarrhea, dysuria, calf pain and edema. He denies sick contacts. reports confusion is at baseline. He received the flu vaccine this year. In the ED patient is mildly tachycardic, he is febrile at 102.38F, he is mildly hypoxic on RA but saturating well on 2L NC. WBC count and lactate are WNL. Flu swab is positive for Flu A. He received IVFs, Zosyn and Tylenol and Tamiflu. He is resting comfortably. He will be admitted for further workup and treatment. Physical Exam (per Admitting): General Appearance: + pertinent finding Head: normocephalic, atraumatic Eyes: PERRL, EOMI, sclerae normal ENT: hearing grossly normal, pharynx normal Neck: supple, no JVD Respiratory/Chest: chest non-tender, lungs clear, normal breath sounds, no respiratory distress, no accessory muscle use, + pertinent finding (coughed throughout exam ) Cardiovascular: no edema, no gallop, no JVD, no murmur, normal peripheral pulses, + tachycardia (low 100s) Abdomen/GI: normal bowel sounds, non tender, soft Back: normal inspection, no muscle spasm Extremities/Musculoskelatal: no calf tenderness, normal capillary refill, no pedal edema Neurologic/Psych: alert, oriented x 3, + pertinent finding (no motor or sensory deficits noted on gross exam ) Skin: normal color, warm/dry, no rash Lymphatic: no adenopathy Hospital Course 71 year old male presents to the ED with URI symptoms, and generalized weakness. INFLUENZA A Continue Tamiflu for a total of 5 days S/P IVF Oxygen per protocol Supportive care SIRS Resolved presented with Fever, Tachycardia No leukocytosis, lactate normal CXR:No obvious infection, UA negative S/P IVF Will discontinue empiric Doxycycline and Rocephin Blood cultures:No growth to date GENERALIZED WEAKNESS likely secondary to acute illness PT/OT IDDM Last A1c 9 SSI coverage, Lantus Hold metformin BSG AC HS CAD stable continue ASA, Statin, BB HTN stable continue BB hold lisinopril for now CAROLYNN Continue home CPAP HLD continue Statin H/O TIA continue Aggrenox, and statin DEMENTIA At baseline per continue Aricept DVT PX: Sq Heparin CODE STATUS: FULL CODE per my discussion with the patient and his DISPOSITION: Plan to discharge home today. Follow up with on Jul 05, 2016 at 12:30pm Total time spent on discharge = 36 minutes This includes examination of the patient, discharge planning, medication reconciliation, and communication with other providers. Discharge Instructions Discharge Instructions Admission Reason for Admission: Influenza A, Sirs Discharge Discharge Diagnosis / Problem: Influenza A Discharge Goals Goal(s): Decrease discomfort, Improve function Activity Recommendations Activity Limitations: resume your previous activity Exercise/Sports Limitations: as tolerated Driving or Machine Use: No driving until cleared by PCP . Instructions / Follow-Up Instructions / Follow-Up Follow up with on Jul 05, 2016 at 12:30pm Complete the Tamiflu as prescribed Seek immediate medical attention if your symptoms reoccur or worsen. Current Hospital Diet Patient's current hospital diet: AHA Diet (Heart Healthy), Diabetes Type 2 Diet Discharge Diet Recommended Diet: Diabetes Type 2 Diet Pending Studies Studies pending at discharge: no Medical Emergencies . Who to Call and When: Medical Emergencies: If at any time you feel your situation is an emergency, please call 911 immediately. . Non-Emergent Contact Non-Emergency issues call your: Primary Care Provider Call Non-Emergent contact if: you have a fever, you have any medication questions If you develop any SOB, cough which is worsening, or develop any chest pain . . "Provider Documentation" section prepared by Nikolay Maciel. VTE Core Measure Inpt VTE Proph given/why not?: Unfractionated heparin SQ
[2016-11-15] MEDS ORDERED: INSDGI SC (12:34)
[2016-11-15] MEDS ORDERED: AGG PO (12:34)
[2016-11-15] MEDS ORDERED: NIAC750T2 PO (12:34)
[2016-11-15] MEDS ORDERED: ASPCH81X PO (12:34)
[2016-11-15] MEDS ORDERED: FENO67CA2 PO (12:34)
[2016-11-15] MEDS ORDERED: LPR25 PO (12:34)
[2016-11-15] MEDS ORDERED: ATOR-24 PO (12:34)
[2016-11-15] MEDS ORDERED: NVLGI/PEN SC (12:34)
[2016-11-15] MEDS ORDERED: LISI-729 PO (12:34)
[2016-11-15] MEDS ORDERED: METF-384 PO (12:34)
[2016-11-15] MEDS ORDERED: DONE10TA12 PO (12:34)
== END 2016-06-26 11:46 | disposition home health service (06) | DRG 153 ==
LOC: ENRESERVTM → ENRESERVDT → EDBD 13:59 → C.EDA 14:02 → C.2T 16:47 → C.4E 06-25 13:02 → EDBEDREQ 06-25 13:38
PROVIDERS: ADMIT Internal Medicine; ATTEND Internal Medicine
DX: J11.1 Influenza due to unidentified influenza virus with other respiratory manifestations (principal); R65.10 Systemic inflammatory response syndrome (SIRS) of non-infectious origin without acute organ dysfunction; E10.9 Type 1 diabetes mellitus without complications; I25.10 Atherosclerotic heart disease of native coronary artery without angina pectoris; I10 Essential (primary) hypertension; G47.33 Obstructive sleep apnea (adult) (pediatric); E78.5 Hyperlipidemia, unspecified; Z86.73 Personal history of transient ischemic attack (TIA), and cerebral infarction without residual deficits; F03.90 Unspecified dementia, unspecified severity, without behavioral disturbance, psychotic disturbance, mood disturbance, and anxiety; J44.9 Chronic obstructive pulmonary disease, unspecified; Z87.891 Personal history of nicotine dependence; Z83.3 Family history of diabetes mellitus; Z82.49 Family history of ischemic heart disease and other diseases of the circulatory system; Z79.4 Long term (current) use of insulin; Z79.82 Long term (current) use of aspirin

== ENCOUNTER → 2016-11-24 | Day surgery (SDC) | payer OTHER ==
[2016-11-15 12:35] VITALS: Ht 175.3 cm; Wt 125.9 kg
[~2016-11-24] VITALS: Ht 175.3 cm; Wt 125.9 kg
[~2016-11-24] MED LIST changes: +ASPCH81X PO; -ASPI81TA28 PO; +ATOR-24 PO; -CHOL100027 PO; +DONE10TA12 PO; -DONE5TAB9 PO; +FENO67CA2 PO; -GLUC750C4 PO; +INSDGI SC; -INSUINJ14 SC; -INSUINJ4 SQ; +KPP250 PO; +LIDOCAINE HCL 2% 2 ML VIAL (20MG/ML) ONE; +LPR25 PO; -LPT/40 PO; -METO50TA16 PO; +NIAC750T2 PO; -NIAC750T4 PO; +NVLGI/PEN SC; -OMEG12006 PO; +PROPOFOL IV EMULSION 10 MG/ML 20 ML VIAL IV ONE; +SODIUM CHLORIDE 0.9% 500ML 500 ML IV ONE
--- NOTE | 2016-11-24 08:58 | Endo History and Physical ---
History & Physical Date of Service: Nov 24, 2016. Chief Complaint: history of polyps Referring Physician: Dr.Paul Rodriguez History of Present Illness hx of polyps Past Medical History Diabetes, Sleep Apnea, COPD, [place] Past Surgical History Hx Cardiac Surgery: Yes (HEART CATH-1 STENT PLACED, RT CAROTID ENDARTERECTOMY) Hx Internal Defibrillator: No Hx Pacemaker: No Hx Abdominal Surgery: Yes (INGUINAL HERNIA) Hx of Implantable Prosthesis: No Hx Post-Op Nausea and Vomiting: No Hx Cancer Surgery: Yes (MOHS ON EAR, SKIN EXCISIONS FROM SKIN CANCER) Hx Thoracic Surgery: Yes (LEFT LUNG BIOPSY (BENIGN)) Hx Orthopedic: Yes (RT SHOULDER ARTHROSCOPY) Hx Urinary Tract Surgery: No Family History IBD Social History Smoking Status: Former Smoker Hx Substance Use: No Hx Alcohol Use: Yes (OCCASIONALLY) Allergies Coded Allergies: Clopidogrel (Verified Allergy, Unknown, Skin peeling on hands., 11/15/16) Reported by . Current Medications Reported Home Medications Medications Dose Route/Sig Max Daily Dose Days Date Category Dose Instructions Lantus (Insulin Glargine) 100 Unit/Ml Inj 60 Units SC QPM 11/15/16 Reported IN ADDITION TO SLIDING SCALE Novolog Flexpen (Insulin Aspart) 100 Units/Ml Inj 1 Dose SC QID 11/15/16 Reported PER SLIDING SCALE Lipitor (Atorvastatin Calcium) 40 Mg Tab 40 Mg PO HS 11/15/16 Reported Lopressor (Metoprolol Tartrate) 25 Mg Tab 0.5 Mg PO QPM 11/15/16 Reported Aricept (Donepezil Hydrochloride) 10 Mg Tab 10 Mg PO QPM 11/15/16 Reported Glucophage (Metformin Hcl) 1,000 Mg Tab 1,000 Mg PO BID 11/15/16 Reported Zestril (Lisinopril) 5 Mg Tab 5 Mg PO DAILY AT NOON 11/15/16 Reported Tricor (Fenofibrate) 67 Mg Cap 67 Mg PO DAILY AT NOON 11/15/16 Reported Niaspan Ext Rel (Niacin) 750 Mg Tabcr 750 Mg PO BID 11/15/16 Reported Aspirin Chewable (Aspirin) 81 Mg Chew 81 Mg PO BID 11/15/16 Reported Aggrenox 25-200 mg (Dipyridamole/Aspirin) 1 Cap Cap 1 Cap PO BID 11/15/16 Reported Vital Signs Weight (Kilograms): 125.91 Height (Feet): 5 Height (Inches): 9 Date Time Temp Pulse Resp B/P (MAP) Pulse Ox O2 Delivery O2 Flow Rate FiO2 11/24/16 08:21 36.8 82 20 144/66 (92) 92 Room Air Physical Exam General Appearance: no apparent distress Respiratory/Chest: Auscultation: breath sounds normal Cardiovascular: Heart Auscultation: RRR Abdomen: Inspection & Palpation: soft, no tenderness, guarding & rebound Assessment and Plan stable for colonoscopy
--- NOTE | 2016-11-24 09:31 | Discharge Instructions ---
Endoscopy Patient Instructions Date / Procedure(s) Performed Nov 24, 2016. Colonoscopy Allergy Information Coded Allergies: Clopidogrel (Verified Allergy, Unknown, Skin peeling on hands., 11/15/16) Reported by . Discharge Date / Findings Nov 24, 2016. multiple colon polyps Medication Instructions Stopped Medication(s): stopped Novolog Tuesday,took ASA,Aggrenox yesterday.Metformin 11/23 Provider Instructions Activity Restrictions - No exercising or heavy lifting for 24 hours. - Do not drink alcohol the day of the procedure. - Do not drive a car or operate machinery until the day after the procedure. - Do not make any important decisions or sign important papers in 24 hours after the procedure. Following Day: - Return to full activity which may include returning to work/school. Diet Start your diet with liquids and light foods (jello, soup, juice, toast). Then eat your usual diet if not nauseated. Treatment For Common After Affects For mild abdominal pain, bloating, or excessive gas: - Rest - Eat lightly - Lie on right side Follow-Up Information Follow-up with Dr.Paul Rodriguez as scheduled Anesthesia Information What You Should Know You have had a procedure that required some medicine to reduce anxiety and discomfort. This treatment is called moderate sedation. After receiving the treatment, you may be sleepy, but you will be able to breathe on your own. The effects of the treatment may last for several hours. Follow these instructions along with Activity/Diet recommendations noted above: * Do NOT do anything where dizziness or clumsiness would be dangerous. * Rest quietly at home today, then you can be up and about tomorrow. * Have a responsible person stay with you the rest of today. * You may have had an I.V. today. If so, you may take the dressing off later today. Recommendations Call your doctor if: * Trouble breathing * Continuous vomiting for more than 24 hours * Temperature above 101 degrees * Severe abdominal pain or bloating * Pain not relieved by pain medicine ordered * There is increased drainage or redness from any incision * A large amount of rectal bleeding greater than 2-3 tablespoons. (If you had a polyp/s removed or have hemorrhoids, a small amount of blood - from the rectum is to be expected.) * You have any unanswered questions or concerns. IN THE EVENT OF A SERIOUS EMERGENCY, GO TO THE NEAREST EMERGENCY ROOM Your discharge instructions were prepared by provider Kane Conner. Patient Instructions Signature Page Jeffery Castro Patient (or Guardian) Signature/Date: I have read and understand the instructions given to me by my caregivers. Caregiver/RN/Doctor Signature/Date: The above-named patient and/or guardian has received patient instructions on this date. + Original Patient Signature Page (only) stays with chart. Please make copy for patient.
--- NOTE | 2016-11-24 09:37 | GI REPORT ---
Procedure Date: 11/24/2016 9:03 AM Procedure: Colonoscopy Indications: High risk colon cancer surveillance: Personal history of multiple (3 or more) adenomas Medicines: See the Anesthesia note for documentation of the administered medications Complications: No immediate complications. Estimated Blood Loss: Estimated blood loss was minimal. Procedure: Pre-Anesthesia Assessment: - Prior to the procedure, a History and Physical was performed, and patient medications, allergies and sensitivities were reviewed. The patient's tolerance of previous anesthesia was reviewed. - The risks and benefits of the procedure and the sedation options and risks were discussed with the patient. All questions were answered and informed consent was obtained. - Patient identification and proposed procedure were verified prior to the procedure by the physician and the nurse. The procedure was verified in the pre-procedure area. - Pre-procedure physical examination revealed no contraindications to sedation. - After reviewing the risks and benefits, the patient was deemed in satisfactory condition to undergo the procedure. After I obtained informed consent, the scope was passed under direct vision. Throughout the procedure, the patient's blood pressure, pulse, and oxygen saturations were monitored continuously. The scope was introduced through the anus and advanced to the cecum, identified by appendiceal orifice and ileocecal valve. The colonoscopy was performed without difficulty. The patient tolerated the procedure well. The quality of the bowel preparation was fair. Findings: The perianal and digital rectal examinations were normal. A 6 mm polyp was found in the transverse colon. The polyp was semi-sessile. The polyp was removed with a hot snare. Resection and retrieval were complete. Verification of patient identification for the specimen was done by the physician and nurse using the patient's name and medical record number. Estimated blood loss was minimal. Two sessile polyps were found at 80 cm proximal to the anus. The polyps were 6 mm in size. These polyps were removed with a hot snare. Resection and retrieval were complete. Verification of patient identification for the specimen was done by the physician and nurse using the patient's name and medical record number. Estimated blood loss: none. A 5 mm polyp was found at 50 cm proximal to the anus. The polyp was sessile. The polyp was removed with a cold snare. Resection and retrieval were complete. Verification of patient identification for the specimen was done by the physician and nurse using the patient's name and medical record number. Estimated blood loss was minimal. A 4 mm polyp was found in the rectum. The polyp was sessile. The polyp was removed with a cold snare. Resection and retrieval were complete. Verification of patient identification for the specimen was done by the physician and nurse using the patient's name and medical record number. Estimated blood loss was minimal. Multiple small-mouthed diverticula were found in the sigmoid colon. No additional abnormalities were found on retroflexion. Impression: - One 6 mm polyp in the transverse colon, removed with a hot snare. Resected and retrieved. - Two 6 mm polyps at 80 cm proximal to the anus, removed with a hot snare. Resected and retrieved. - One 5 mm polyp at 50 cm proximal to the anus, removed with a cold snare. Resected and retrieved. - One 4 mm polyp in the rectum, removed with a cold snare. Resected and retrieved. - Diverticulosis in the sigmoid colon. Recommendation: - Await pathology results. - Discharge patient to home. Kane Conner M.D. Kane Conner MD 11/24/2016 9:36:45 AM This report has been signed electronically. Note Initiated On: 11/24/2016 9:03 AM I attest to the content of the Intraoperative Record and orders documented therein, exceptions below
--- NOTE | 2016-11-24 09:43 | Anesthesiology Progress Note ---
Anesthesia Post Op Note Date & Time Nov 24, 2016 at 09:42 Vital Signs Pain Intensity: 0 Vital Signs Past 12 Hours Date Time Temp Pulse Resp B/P (MAP) Pulse Ox O2 Delivery O2 Flow Rate FiO2 11/24/16 09:33 63 16 112/66 (81) 92 Room Air 11/24/16 08:21 36.8 82 20 144/66 (92) 92 Room Air Notes Mental Status: alert / awake / arousable, participated in evaluation Pt Amnestic to Procedure: Yes Nausea / Vomiting: adequately controlled Pain: adequately controlled Airway Patency, RR, SpO2: stable & adequate BP & HR: stable & adequate Hydration State: stable & adequate Anesthetic Complications: no major complications apparent
[2016-11-24 10:03] VITALS: BP 123/69; PULSE 67; O2SAT 95
== END | disposition home or self-care (01) ==
LOC: C.GI 07:50
PROVIDERS: ATTEND Internal Medicine Gastroenterology
DX: Z12.11 Encounter for screening for malignant neoplasm of colon (principal); Z86.010 Personal history of colon polyps; D12.3 Benign neoplasm of transverse colon; K62.0 Anal polyp; K62.1 Rectal polyp; K57.30 Diverticulosis of large intestine without perforation or abscess without bleeding; I25.2 Old myocardial infarction; E11.9 Type 2 diabetes mellitus without complications; J44.9 Chronic obstructive pulmonary disease, unspecified; G47.30 Sleep apnea, unspecified; Z79.4 Long term (current) use of insulin; Z79.899 Other long term (current) drug therapy; Z87.891 Personal history of nicotine dependence; Z79.82 Long term (current) use of aspirin

== ENCOUNTER 2016-12-19 18:48 | Inpatient (IN) | payer OTHER ==
[~2016-12-19] VITALS: Ht 175.3 cm; Wt 123.9 kg
[~2016-12-19 18:48] MED LIST changes: -KPP250 PO; -LIDOCAINE HCL 2% 2 ML VIAL (20MG/ML) ONE; -PROPOFOL IV EMULSION 10 MG/ML 20 ML VIAL IV ONE; -SODIUM CHLORIDE 0.9% 500ML 500 ML IV ONE
[2016-12-19] MEDS ORDERED: SODIUM CHLORIDE 0.9% 1000ML 1,000 ML IV SCH (19:06)
--- NOTE | 2016-12-19 19:12 | DIAGNOSTIC IMAGING REPORT ---
CT OF THE HEAD WITHOUT CONTRAST CLINICAL HISTORY: Stroke symptoms. COMPARISON STUDY: Head CT December 15, 2015. CT DOSE: 614.27 mGy.cm TECHNIQUE: Helical axial images of the head were obtained without IV contrast. Automated exposure control was utilized for the study. A dose lowering technique was utilized adhering to the principles of ALARA. FINDINGS: No acute intracranial hemorrhage, midline shift or mass effect is present. Mild dilatation of the lateral and third ventricles is unchanged. The basilar cisterns are patent. There are no extra-axial collections. White matter hypodensity suggests small vessel disease. There are no findings to suggest acute dural sinus thrombosis or acute territorial infarct. There are no significant calvarial abnormalities. An old lacunar infarct within the left basal ganglia is noted. IMPRESSION: No acute intracranial findings. Electronically signed by: Daryl Rowland M.D. 12/19/2016 7:11 PM Dictated Date/Time: 12/19/2016 7:07 PM
--- NOTE | 2016-12-19 19:24 | EMERGENCY ROOM VISIT NOTE ---
History Report prepared by Kasandra: Eulogio Gaytan Under the Supervision of: Felicity TongO. First contact with patient: 18:47 Chief Complaint: STROKE SYMPTOMS Stated Complaint: STROKE SX History of Present Illness The patient is a 71 year old male who presents to the Emergency Room with complaints of stroke-like symptoms that began 15 minutes ago, at 1830. Per the patient's , At this time, he had a sudden onset of speech slur and right sided weakness. En route with EMS, the patient had waxing and waning of these symptoms, sometimes improving, and sometimes worsening. He was also confused during this time as well. His BS was 113 and his BP was in the 150s. He has a past medical history of diabetes, multiple TIA's leading to a CVA last year, and minor TIAs after that. The states that the patient seems like he was in his prior CVA episode. He has never had bleeding into his brain, bowels, or any recent surgery. He denies any blurry vision or headache, chest pain, sob, numbness, or weakness at this time. The patient is currently taking Aggrenox, Aspirin, atorvastatin, donepezil HCl, Fenofibrate, Lantus Solostar, Lisinopril, Metformin HCL, Metoprolol Tartrate, NovoLog Insulin, Slo- Niacin. Source of History: patient Onset: 15 minutes ago Position: other (global) Symptom Intensity: moderate Quality: other (Stroke-like symptoms) Timing: waxes/wanes Associated Symptoms: No headache, No chest pain, No SOB, No weakness, No numbness Review of Systems See HPI for pertinent positives & negatives. A total of 10 systems reviewed and were otherwise negative. Past Medical & Surgical Medical Problems: (1) CAD (coronary artery disease) (2) Carotid stenosis (3) DM2 (diabetes mellitus, type 2) (4) History of left heart catheterization (LHC) (5) History of recurrent TIAs (6) HLD (hyperlipidemia) (7) NSTEMI (non-ST elevated myocardial infarction) (8) CAROLYNN (obstructive sleep apnea) (9) SIRS (systemic inflammatory response syndrome) (10) Stroke-like symptom (11) Syncope and collapse (12) thoracoscopy (13) TIA (transient ischemic attack) (14) TIA (transient ischemic attack) (15) Vascular dementia Surgical Problems: (1) H/O carotid endarterectomy (2) H/O shoulder surgery (3) S/P drug eluting coronary stent placement Family History Diabetes mellitus FH: heart disease Hypertension Social History Smoking Status: Former Smoker Smokeless Tobacco Use: No Drug Use: none Marital Status: Housing Status: lives with significant other Occupation Status: retired Current/Historical Medications Scheduled Aspirin (Aspirin Chewable), 81 MG PO BID Atorvastatin (Lipitor), 40 MG PO HS Dipyridamole/Aspirin (Aggrenox 25-200 mg), 1 CAP PO BID Donepezil Hydrochloride (Aricept), 10 MG PO QPM Fenofibrate (Tricor), 67 MG PO DAILY AT NOON Insulin Aspart (Novolog Flexpen), 1 DOSE SC QID Insulin Glargine (Lantus), 66 UNITS SC QPM Levetiractam (Keppra), 250 MG PO HS Lisinopril (Zestril), 5 MG PO DAILY AT NOON Metformin Hcl (Glucophage), 1,000 MG PO BID Metoprolol Tartrate (Lopressor), 12.5 MG PO QPM Niacin Ext Rel (Niaspan Ext Rel), 750 MG PO BID Allergies Coded Allergies: Clopidogrel (Verified Allergy, Intermediate, Skin peeling on hands., ) Reported by . Physical Exam Vital Signs Date Time Temp Pulse Resp B/P (MAP) Pulse Ox O2 Delivery O2 Flow Rate FiO2 12/19/16 20:01 74 18 148/67 96 Nasal Cannula 2.0 12/19/16 19:32 76 18 150/75 96 Nasal Cannula 2.0 12/19/16 19:15 95 Nasal Cannula 2.0 12/19/16 19:04 85 12/19/16 19:03 37.4 89 20 183/88 91 Room Air Physical Exam GENERAL: alert, well appearing, well nourished, no distress, non-toxic, hard of hearing, obese EYE EXAM: normal conjunctiva, PERRL and EOM's grossly intact OROPHARYNX: no exudate, no erythema, lips, buccal mucosa, and tongue normal and mucous membranes are moist NECK: supple, no nuchal rigidity, no adenopathy, non-tender LUNGS: Clear to auscultation. Normal chest wall mechanics HEART: no murmurs, S1 normal and S2 normal ABDOMEN: abdomen soft, non-tender, normo-active bowel sounds, no masses, no rebound or guarding. BACK: Back is symmetrical on inspection and there is no deformity, no midline tenderness, no CVA tenderness. SKIN: no rashes and no bruising UPPER EXTREMITIES: upper extremities are grossly normal. LOWER EXTREMITIES: No pitting edema. NEURO EXAM: Normal sensorium, cranial nerves II-XII grossly intact, normal speech, no gross weakness of arms, no gross weakness of legs. No drift. Finger to nose intact. Gross sensation intact. NIHSS 1. states pt now seems at baseline. also states some dementia. Likely explains some difficulty with recall/memory. Medical Decision & Procedures ER Provider Diagnostic Interpretation: Radiology results have been interpreted by the radiologist and reviewed by me. CT OF THE HEAD WITHOUT CONTRAST CLINICAL HISTORY: Stroke symptoms. COMPARISON STUDY: Head CT December 15, 2015. CT DOSE: 614.27 mGy.cm TECHNIQUE: Helical axial images of the head were obtained without IV contrast. Automated exposure control was utilized for the study. A dose lowering technique was utilized adhering to the principles of ALARA. FINDINGS: No acute intracranial hemorrhage, midline shift or mass effect is present. Mild dilatation of the lateral and third ventricles is unchanged. The basilar cisterns are patent. There are no extra-axial collections. White matter hypodensity suggests small vessel disease. There are no findings to suggest acute dural sinus thrombosis or acute territorial infarct. There are no significant calvarial abnormalities. An old lacunar infarct within the left basal ganglia is noted. IMPRESSION: No acute intracranial findings. Electronically signed by: Dayrl Rowland M.D. 12/19/2016 7:11 PM Dictated Date/Time: 12/19/2016 7:07 PM CHEST ONE VIEW PORTABLE CLINICAL HISTORY: Stroke COMPARISON STUDY: Chest radiograph June 24, 2016. FINDINGS: Lung volumes are normal. No pneumothorax or pleural effusion is present. Postoperative findings within the left upper lobe are unchanged. Cardiomediastinal silhouette is stable and there is no evidence of pulmonary edema. The appearance of the chest is unchanged. IMPRESSION: No acute cardiopulmonary findings. No change in appearance of the chest. Electronically signed by: Daryl Rowland M.D. 12/19/2016 7:43 PM Dictated Date/Time: 12/19/2016 7:42 PM Laboratory Results Test 12/19/16 19:09 12/19/16 19:15 12/19/16 19:25 Bedside Prothrombin Time INR 1.2 (0.9-1.1) Prothrombin Time 10.2 SECONDS (9.0-12.0) Prothromb Time International Ratio 1.0 (0.9-1.1) Activated Partial Thromboplast Time 24.4 SECONDS (21.0-31.0) Partial Thromboplastin Ratio 0.9 Total Creatine Kinase 110 U/L (39-308) Creatine Kinase MB 1.3 ng/ml (0.5-3.6) Creatine Kinase MB Ratio 1.2 (0-3.0) Troponin I < 0.015 ng/ml (0-0.045) Bedside Hemoglobin 13.6 g/dl (14.0-18.0) Bedside Hematocrit 40 % (42-52) Bedside Sodium 142 mEq/L (135-144) Bedside Potassium 4.2 mEq/L (3.3-5.0) Bedside Chloride 105 mEq/L (101-112) Bedside Total CO2 25 mEq/l (24-31) Bedside Blood Urea Nitrogen 17 mg/dl (7-18) Bedside Creatinine 1.0 mg/dl (0.6-1.3) Bedside Glucose (other) 85 mg/dl (70-99) Bedside Ionized Calcium (Mike) 1.20 mmol/l (1.12-1.32) Laboratory results per my review. Medications Administered Medications (Trade) Dose Ordered Sig/Atiya Route Start Time Stop Time Status Last Admin Dose Admin Sodium Chloride 1,000 ml @ 50 mls/hr Q20H IV 12/19/16 19:06 12/19/16 21:49 DC 12/19/16 19:32 50 MLS/HR ECG Indication: weakness Rate (beats per minute): 91 Rhythm: normal sinus Findings: Q waves (V1-3, lead 3), T-wave inversion (Lead 3), no acute ischemic change, other (Normal axis, normal intervals) ED Course 1846: The patient was evaluated in room B1. A complete history and physical exam was performed. 1905: Ordered Sodium Chloride 1000 ml @ 50 mls/hr IV 1911: I rechecked the patient at this time. The patient's feels that his speech is slightly slurring again. Nursing staff is finishing their evaluation. 1923: I spoke with Dr. Balbir Hopkins Neurology at this time. He is going to evaluate the patient via Tele-stroke and then call me back after with his recommendations. 1927: The patient's blood pressure is 148/65. I updated him and his family. 1937: Upon rechecking the patient, Dr. Mcgregor is assessing him. 2019: Dr. Mcgregor called me back at this time. He does not recommend T-PA. We recommends the patient receiving further treatment and a stroke work up as an inpatient. 2024: Upon reevaluation, the patient is resting. I discussed the findings and the treatment plan with the patient. He expresses agreement and understanding. I spoke with Dr. Nolen of the [facility]. He will be evaluated for further management. Medical Decision Differential Diagnosis includes but is not limited to ischemic Stroke, hemorrhagic stroke, bells palsy, mass, neoplasm, migraine headache, seizure, subarachnoid hemorrhage, TIA, and transient global amnesia. Pt with waxing/waning stroke symptoms, no absolute contraindications to tPA. Evaluated by the teleneurologist from [place] who did not feel pt warranted tPA given resolution of symptoms and risks. Pt and were agreeable with plan. Pt admitted for additional evaluation. No evidence of bacteremia/sepsis, pt without other complaints. Medication Reconcilliation Current Medication List: was personally reviewed by me Blood Pressure Screening Patient's blood pressure: Elevated blood pressure Blood pressure disposition: Referred to PCP Consults Time Called: 1919 Consulting Physician: Dr. Balbir Hopkins Neurology Returned Call: 1923 We discussed the patient's case. He will evaluate the patient via Tele-stroke and call me back with his recommendations. 2019: He called me back at this time. He does not recommend T-PA, but he does recommend a further inpatient evaluation with a stroke work up. Additional Consults: Time Called: 2023 Consulted Physician: Dr. Nolen [facility] Returned Call: 2025 Additional Comments: I reviewed the patient's case with him. He will evaluate the patient for further management. Impression Primary Impression: CVA (cerebral vascular accident) Additional Impressions: HTN (hypertension) Obesity Mild dementia Scribe Attestation The scribe's documentation has been prepared under my direction and personally reviewed by me in its entirety. I confirm that the note above accurately reflects all work, treatment, procedures, and medical decision making performed by me. Departure Information Dispostion Being Evaluated By Hospitalist Prescriptions Levetiractam (Keppra) 250 Mg Tab 250 MG PO HS, #30 1 Refill Prov: Berto Strickland MD 12/21/16 Referrals Jabari Rodriguez M.D. (PCP) Patient Instructions My [facility] Stroke History Time Last Known Well 15 minutes ago, 1830 Stroke t-PA Criteria Reviewed Does NOT meet criteria for t-PA Reason t-PA Not Given Contraindicated (Relative given comorbidities and medications, also resolution of symptoms) Problem Qualifiers Primary Impression: CVA (cerebral vascular accident) CVA mechanism: unspecified Qualified Codes: I63.9 - Cerebral infarction, unspecified Additional Impressions: HTN (hypertension) Hypertension type: essential hypertension Qualified Codes: I10 - Essential ( primary) hypertension Obesity Obesity type: due to excess calories Obesity classification: adult class 3 ( BMI >= 40) Serious obesity comorbidity presence: with serious comorbidity Body mass index: BMI 40.0-44.9 Qualified Codes: E66.09 - Other obesity due to excess calories; Z68.41 - Body mass index (BMI) 40.0-44.9, adult
[2016-12-19 19:37] LABS: BASO % 0.3 %; BASO ABS # 0.02 K/uL (0-0.2); COMPLETE YES; EOS % 5.8 %; HEMATOCRIT 41.6 % (42-52); IG% 0.4 %; LYMPH % 35.4 %; LYMPH ABS # 2.57 K/uL (1.2-3.4); MEAN CELL VOLUME 97.4 fL (80-100); MEAN CORPUSCULAR HEMOGLOBIN 32.8 pg (25-34); MEAN CORPUSCULAR HGB CONC 33.7 g/dl (32-36); MONO % 7.3 %; NEUT % 50.8 %; PLATELET COUNT 156 K/uL (130-400); RED BLOOD COUNT 4.27 M/uL (4.7-6.1); WHITE BLOOD COUNT 7.27 K/uL (4.8-10.8)
[2016-12-19 19:40] LABS: ISTAT HEMOGLOBIN 13.6 g/dl (14.0-18.0); ISTAT IONIZED CALCIUM 1.2 mmol/l (1.12-1.32)
--- NOTE | 2016-12-19 19:45 | DIAGNOSTIC IMAGING REPORT ---
CHEST ONE VIEW PORTABLE CLINICAL HISTORY: Stroke COMPARISON STUDY: Chest radiograph June 24, 2016. FINDINGS: Lung volumes are normal. No pneumothorax or pleural effusion is present. Postoperative findings within the left upper lobe are unchanged. Cardiomediastinal silhouette is stable and there is no evidence of pulmonary edema. The appearance of the chest is unchanged. IMPRESSION: No acute cardiopulmonary findings. No change in appearance of the chest. Electronically signed by: Daryl Rowland M.D. 12/19/2016 7:43 PM Dictated Date/Time: 12/19/2016 7:42 PM
[2016-12-19 19:46] LABS: PARTIAL THROMBOPLASTIN RATIO 0.9; PROTHROMBIN TIME (PATIENT) 10.2 SECONDS (9.0-12.0)
[2016-12-19 19:52] LABS: BLOOD UREA NITROGEN 17 mg/dl (7-18); BUN/CREATININE RATIO 15.1 (10-20); CALCIUM 8.9 mg/dl (8.5-10.1); CARBON DIOXIDE 29 mmol/L (21-32); CHLORIDE 108 mmol/L (98-107); GLUCOSE 87 mg/dl (70-99); POTASSIUM 4.2 mmol/L (3.5-5.1); SODIUM 142 mmol/L (136-145)
[2016-12-19 19:57] LABS: CKMB/CK RATIO 1.2 (0-3.0)
[2016-12-19] MEDS ORDERED: ACETAMINOPHEN 325 MG TAB PO PRN (21:00)
[2016-12-19] MEDS ORDERED: ONDANSETRON INJ 2 MG/ML 2 ML VIAL IV PRN (21:00)
[2016-12-19 21:27] LABS: URINE APPEARANCE CLEAR (CLEAR); URINE BILIRUBIN NEG (NEG); URINE COLOR YELLOW; URINE NITRITE NEG (NEG); URINE SPECIFIC GRAVITY 1.028 (1.000-1.030); UROBILINOGEN NEG (NEG); ZZUR CULT IF INDIC CLEAN CATCH NO
[2016-12-19 21:29] LABS: MANUAL MICROSCOPIC REQUIRED? NO; REVIEW REQ? NO
[2016-12-19 21:40] VITALS: BP 152/73; PULSE 86; TEMP 36.5; O2SAT 93; Ht 175.3 cm; Wt 123.9 kg
[2016-12-19] MEDS ORDERED: GLUCOSE 40% GEL 15 GM TUBE PO PRN (21:45)
[2016-12-19] MEDS ORDERED: GLUCOSE 10 TABS/TUBE PO PRN (21:45)
[2016-12-19] MEDS ORDERED: DEXTROSE 50% 50 ML SYR IV PRN (21:45)
[2016-12-19] MEDS ORDERED: GLUCAGON FOR INJ 1 MG VIAL SQ PRN (21:45)
--- NOTE | 2016-12-19 22:19 | HISTORY & PHYSICAL EXAMINATION ---
DATE OF ADMISSION: 12/19/2016 PRIMARY CARE PHYSICIAN: Dr. Rodriguez CHIEF COMPLAINT: TIA since this evening. HISTORY OF PRESENT COMPLAINT: He is a 71-year-old male with significant past medical history including stroke in December of 2015, status post TPA during that time; history of recurrent TIAs; diabetes type 2; CAD with stent placement; COPD; sleep apnea; hypertension; hyperlipidemia; apparently was in [place] today for supper. His noticed that he was not talking normally and when he was talking the speech was garbled and also his look was like stare in front and whenever he started eating, he was not chewing, was keeping the food inside the mouth without swallowing. The condition did not improve and he was not communicating. At that time, EMS was called and initially the symptoms improved, but again in the ambulance he had similar episode of dysarthria and stare looking, and that resolved in the Emergency Room as well. He denies to have any recent fever, chills or rigors. No chest pain, shortness of breath, palpitation. No visual symptoms. No numbness or tingling involving any of the extremities. No weakness involving any side, though according to the , he has some weakness in the left upper extremity that has been going on for the last 2 days. He does not have any problem with urine and/or bowel habit. In the ER, his vitals were stable and initial CAT scan negative. A teleconference was done with Dr. Larios at [facility]. The symptom resolved and he is not a candidate for TPA and advised to continue current medications with stroke workup and admission to the hospital. PAST MEDICAL HISTORY: Significant for status post stroke in December 2015, status post TPA during that time in [facility]; recurrent TIAs since then; CAD with history of non-ST elevation [place] and status post drug-eluting stent placement in April 2013; diabetes type 2; COPD; obesity; sleep apnea, on BIPAP with oxygen; hyperlipidemia; hypertension; and history of diastolic dysfunction. PAST SURGICAL HISTORY: Significant for cardiac catheterization in April 2013 that showed blockage of RCA and he is status post NOHEMY during that time, tonsillectomy as a child, cataract surgery, thoracoscopy, partial pulmonary decortication due to benign mass in the left lung in 2010, laparoscopic repair of hernia, and minor right shoulder surgery. FAMILY HISTORY: Significant that sister has Alzheimer disease. Brother had heart disorder, at the age of 30s from [place]. Father had heart disorder, at 70s from [place]. Mother at 70s from [place] as well. So strong family history of cardiac . SOCIAL HISTORY: He is . He lives with his . He quit smoking in 1997, after a 23-ptss-sdei history of smoking. He drinks occasionally. He has been reasonably ambulant. ALLERGIES: PLAVIX. MEDICATIONS: He has been on metformin 1 gram b.i.d., aspirin 81 mg twice daily, Lipitor 40 mg at night, Aggrenox 1 capsule twice daily, Aricept 10 mg daily, Tricor 67 mg daily, insulin NovoLog as directed, Lantus 66 units at night, lisinopril 5 mg daily, Lopressor 25 mg tablet 12.5 tablet at night, niacin 750 mg daily. REVIEW OF SYSTEMS: Other systemic review unremarkable except those mentioned in history of present complaint. PHYSICAL EXAMINATION: GENERAL: On examination in the Emergency Room, he was not having any acute symptoms. VITAL SIGNS: Temperature 37.4, pulse 79, blood pressure 170/73, saturation 96% on 2 liters nasal cannula. HEENT: Unremarkable. NECK: Supple. No JVD, no bruit. CHEST: Decreased breath sounds but no wheezing and/or crackles. HEART: S1, S2 regular. ABDOMEN: Soft, benign, mildly distended, nontender. No organomegaly. Bowel sounds present. EXTREMITIES: Trace edema bilaterally. MUSCULOSKELETAL: Did not show any acute arthritis involving any joint. CENTRAL NERVOUS SYSTEM: He was alert, awake, oriented. He did not have any focal neurological deficit. LABORATORY DATA: Noted today white count was 7.27, H&H of 13.6/40, platelet was 156. Sodium 142, potassium 4.2, chloride 105, carbon dioxide 108, BUN 17 and creatinine 1.10. Random glucose 85. CK, CK-MB unremarkable. Coagulation panel INR 1.0, PTT ratio 0.9. UA examination pending. CT of the head, no acute intracranial findings. Chest x-ray, no acute cardiopulmonary findings and no change in appearance of the chest. EKG was in sinus rhythm, rate of 91 per minute, normal axis and minor nonspecific ST-T wave changes. IMPRESSION AND PLAN: 1. Recurrent transient ischemic attack with history of stroke in December 2015, status post tissue plasminogen activator during that time. The patient has resolved all of his symptoms in the ER. Tele-interview was done with [facility] neurologist and not a candidate for tissue plasminogen activator at this time. Continue with Aggrenox and aspirin as before. We will get MRA, MRI and also at this time and we will get an echocardiogram to rule out any potential source of emboli. He had an echo done in December 2015 that did show concentric left ventricular hypertrophy, no wall motion abnormality, ejection fraction was 55% to 60%, mild aortic sclerosis, and calcium deposition noted in coronary cast. Neuro observation while in the hospital. 2. Coronary artery disease status post right coronary artery stent in 2012 and status post non-ST segment elevation myocardial infarction in the past. No acute symptoms at this time. Continue with current medications, beta blake, lisinopril and also Aggrenox. 3. Dementia. Has been on Aricept, continue with that. 4. Diabetes type 2, on insulin and metformin. Hold metformin, continue insulin and put him on a sliding scale coverage. 5. Chronic obstructive pulmonary disease. Continue with current medications, inhalations mainly. No exacerbation at this time. 6. Sleep apnea. Use CPAP at night with oxygen and continue with that. 7. Hypertension. Blood pressure seems to be stable. 8. Hyperlipidemia. Continue current medications. 9. Gastrointestinal prophylaxis with Protonix. 10. Deep venous thrombosis prophylaxis with subcutaneous heparin. 11. Code status. He will be a full code. In my clinical judgment, the beneficiary meets criteria as per CMS for 2 midnight stay in the hospital. MTDD
[2016-12-19] MEDS: METOPROLOL TARTRATE 25 MG TAB PO SCH (22:27)
[2016-12-19] MEDS: ATORVASTATIN 40 MG TAB PO SCH (22:28)
[2016-12-19] MEDS: DIPYRIDAMOLE/ASPIRIN CAP PO SCH (22:32)
[2016-12-19] MEDS: DONEPEZIL HCL 10 MG TAB PO SCH (22:32)
[2016-12-19] MEDS: ASPIRIN 81 MG ECTAB PO SCH (22:32)
[2016-12-19] MEDS: NSS + 20MEQ KCL 1000ML 1,000 ML IV SCH (22:34)
[2016-12-19] MEDS: INSULIN ASPART 100 UNITS/ML 3 ML PEN SC SCH (22:35)
[2016-12-19] MEDS: HEPARIN SOD 5000 UNIT/0.5 ML CARP SQ SCH (22:36)
[2016-12-19] MEDS: INSULIN GLARGINE SOLOSTAR 100 UNITS/ML 3 ML PEN SC SCH (22:37)
[2016-12-19 22:53] VITALS: BP 137/67; PULSE 83; TEMP 37.1; O2SAT 93
[2016-12-19 23:50] VITALS: BP 168/70; PULSE 92; TEMP 36.6; O2SAT 92
[2016-12-19 23:53] VITALS: BP 168/70; PULSE 92; TEMP 36.6; O2SAT 92
[2016-12-20] VITALS (10 sets, daily range): BP systolic 108–183; BP diastolic 65–81; PULSE 69–88; TEMP 36.5–37.1; O2SAT 91–96
[2016-12-20] MEDS: HEPARIN SOD 5000 UNIT/0.5 ML CARP SQ SCH ×3 (05:54→21:14)
[2016-12-20] MEDS: INSULIN ASPART 100 UNITS/ML 3 ML PEN SC SCH ×4 (08:34→20:35)
[2016-12-20] MEDS: INSULIN GLARGINE SOLOSTAR 100 UNITS/ML 3 ML PEN SC SCH (08:35)
[2016-12-20] MEDS: ASPIRIN 81 MG ECTAB PO SCH ×2 (08:35→20:34)
[2016-12-20] MEDS: DIPYRIDAMOLE/ASPIRIN CAP PO SCH ×2 (08:36→20:34)
[2016-12-20] MEDS: NSS + 20MEQ KCL 1000ML 1,000 ML IV SCH ×2 (08:37→22:29)
[2016-12-20] MEDS: TRICOR~ORDER AWAITING ACTION SCH ×4 (08:51→23:11)
[2016-12-20] MEDS ORDERED: LISINOPRIL 5 MG TAB PO SCH (09:00)
[2016-12-20] MEDS ORDERED: LORAZEPAM 0.5 MG TAB PO PRN (13:45)
[2016-12-20] MEDS ORDERED: PHARMACIST DISCHARGE MED REC CONSULT PRN (16:00)
--- NOTE | 2016-12-20 17:26 | ECHOCARDIOGRAM REPORT ---
*NOTICE TO RECEIVING CONSTITUTION PARTY AGENCY This information is strictly Confidential and protected under [place] law. [place] law prohibits you from making any further disclosure of this information unless further disclosure is expressly permitted by the written consent of the person to whom it pertains or is authorized by law. A general authorization for the release of medical or other information is not sufficient for this purpose. Hospital accepts no responsibility if the information is made available to any other person, INCLUDING THE PATIENT. Interpretation Summary * Name: CARRIE BURKS Study Date: 12/20/2016 07:47 AM BP: 183/66 mmHg * Patient Location: C.2T\S\S230\S\1 HR: 84 * : 1945 (M/d/yyy) Gender: Male Height: 69 in * Age: 71 yrs Ethnicity: CA Weight: 287 lb * Ordering Physician: Felicity Nolen * Referring Physician: Self, Referred * Performed By: Jmaes Bermeo RCS * * Reason For Study: Recurrent TIA, CAD w/ Stent * BSA: 2.4 m2 * The study was technically difficult. * -- Conclusions -- * The left ventricular ejection fraction is grossly normal. * The endocardial border is well defined and therefore the LV apex is not well visualized and analysis of regional wall motion is technically limited. * Recommend obtaining additional images with the use of ultasound contrast. * The interatrial septum is intact with no evidence for an atrial septal defect. * Injection of contrast documented no interatrial shunt. Procedure Details * A saline contrast injection was performed to assess for cardiac shunting. * The injection was performed through an intravenous line in the right arm. * A total of 18 cc of agitated saline was given. * A complete two-dimensional transthoracic echocardiogram was performed (2D, M-mode, Doppler and color flow Doppler). Left Ventricle * The left ventricle is normal in size. * There is normal left ventricular wall thickness. * The left ventricular ejection fraction is grossly normal. * The endocardial border is well defined and therefore the LV apex is not well visualized and analyasis of regional wall motion is technically limited. Recommend obtaining additional images with the use of ultasound contrast. Right Ventricle * The right ventricle is normal size. * The right ventricular systolic function is normal as assessed by tricuspid annular plane systolic excursion (TAPSE) (normal >1.5 cm). Atria * The left atrial size is normal. * Right atrial size is normal. * The interatrial septum is intact with no evidence for an atrial septal defect. * Injection of contrast documented no interatrial shunt. Mitral Valve * The mitral valve is normal. * There is no mitral valve stenosis. * Significant mitral regurgitation is absent. Tricuspid Valve * The tricuspid valve is normal. * There is no tricuspid stenosis. * Significant tricuspid regurgitation is absent. Aortic Valve * The aortic valve is trileaflet. * Aortic valve sclerosis mild, without significant aortic valvular stenosis. * Aortic stenosis is absent. * There is no significant aortic regurgitation. Pulmonic Valve * The pulmonary valve is not well seen, but the Doppler examination is normal without significant regurgitation or stenosis. Great Vessels * The aortic root and proximal ascending aorta are normal sized. Pericardium/Pleural * There is no pericardial effusion. Great Vessels * Normal inferior vena cava diameter and respiratory variation suggests normal central venous pressure. Left Ventricular Diastolic Function * Grade I diastolic dysfunction, (abnormal relaxation pattern). MMode 2D Measurements and Calculations IVSd 1.0 cm LVIDd 4.5 cm LVIDs 2.9 cm LVPWd 1.0 cm IVS/LVPW 0.99 FS 36.5 % EDV(Teich) 93.0 ml ESV(Teich) 31.3 ml EF(Teich) 66.4 % EDV(cubed) 91.8 ml ESV(cubed) 23.5 ml EF(cubed) 74.4 % LV mass(C)d 163.1 grams LV mass(C)dI 67.7 grams/m\S\2 SV(Teich) 61.7 ml SI(Teich) 25.6 ml/m\S\2 SV(cubed) 68.3 ml SI(cubed) 28.4 ml/m\S\2 LVAd ap4 30.3 cm\S\2 LVLd ap4 8.5 cm EDV(MOD-sp4) 91.6 ml EDV(sp4-el) 91.9 ml LVAs ap4 16.1 cm\S\2 LVLs ap4 7.2 cm ESV(MOD-sp4) 31.5 ml ESV(sp4-el) 30.4 ml EF(MOD-sp4) 65.6 % EF(sp4-el) 66.9 % LVAd ap2 25.4 cm\S\2 LVLd ap2 8.2 cm EDV(MOD-sp2) 64.6 ml EDV(sp2-el) 67.1 ml LVAs ap2 12.0 cm\S\2 LVLs ap2 6.0 cm ESV(MOD-sp2) 20.6 ml ESV(sp2-el) 20.6 ml EF(MOD-sp2) 68.1 % EF(sp2-el) 69.3 % LVLd %diff -3.93 % EDV(MOD-bp) 77.0 ml LVLs %diff -21.36 % ESV(MOD-bp) 27.8 ml EF(MOD-bp) 63.9 % SV(MOD-sp4) 60.1 ml SI(MOD-sp4) 25.0 ml/m\S\2 SV(MOD-sp2) 44.0 ml SI(MOD-sp2) 18.3 ml/m\S\2 SV(MOD-bp) 49.2 ml SI(MOD-bp) 20.4 ml/m\S\2 SV(sp4-el) 61.4 ml SI(sp4-el) 25.5 ml/m\S\2 SV(sp2-el) 46.5 ml SI(sp2-el) 19.3 ml/m\S\2 Doppler Measurements and Calculations MV E max casper 73.2 cm/sec MV A max casper 81.0 cm/sec MV E/A 0.90 MV dec time 0.23 sec Ao V2 max 134.4 cm/sec Ao max PG 7.2 mmHg Ao max PG (full) 3.8 mmHg LV V1 max PG 3.4 mmHg LV V1 max 92.2 cm/sec
--- NOTE | 2016-12-20 19:11 | Progress Note ---
Medicine Progress Note Date & Time of Visit: Dec 20, 2016 at 19:04. Subjective patient states he feels better today at bedside, states patient is at baseline denies new neuro symptoms no chest pain, dyspnea, palpitations, dizziness no other symptoms Objective Last 8 Hrs Date Time Temp Pulse Resp B/P (MAP) Pulse Ox O2 Delivery O2 Flow Rate FiO2 12/20/16 16:00 91 Room Air 12/20/16 15:36 36.6 69 20 145/66 (92) 91 Room Air 12/20/16 12:43 36.5 73 18 108/65 (79) 96 12/20/16 12:00 Room Air Physical Exam: General-oriented x 3, not in distress, speaks in sentences with no effort Head- atraumatic Eyes-EOMI, anicteric ENT- oropharynx clear Neck- supple, no JVD, no adenopathy Lungs- clear breath sounds bilaterally Heart- regular rhythm; no murmur, normal rate Abdomen- normal bowel sounds, soft, nontender Extremities- no pretibial edema, no calf tenderness Neuro- alert, oriented x 3; no gross focal deficits Skin- warm & dry Laboratory Results: Last 24 Hours Test 12/19/16 19:09 12/19/16 19:15 12/19/16 19:25 12/19/16 21:00 Bedside Prothrombin Time INR 1.2 Bedside Glucose 79 mg/dl White Blood Count 7.27 K/uL Red Blood Count 4.27 M/uL Hemoglobin 14.0 g/dL Hematocrit 41.6 % Mean Corpuscular Volume 97.4 fL Mean Corpuscular Hemoglobin 32.8 pg Mean Corpuscular Hemoglobin Concent 33.7 g/dl Platelet Count 156 K/uL Mean Platelet Volume 10.0 fL Neutrophils (%) (Auto) 50.8 % Lymphocytes (%) (Auto) 35.4 % Monocytes (%) (Auto) 7.3 % Eosinophils (%) (Auto) 5.8 % Basophils (%) (Auto) 0.3 % Neutrophils # (Auto) 3.70 K/uL Lymphocytes # (Auto) 2.57 K/uL Monocytes # (Auto) 0.53 K/uL Eosinophils # (Auto) 0.42 K/uL Basophils # (Auto) 0.02 K/uL RDW Standard Deviation 49.7 fL RDW Coefficient of Variation 13.9 % Immature Granulocyte % (Auto) 0.4 % Immature Granulocyte # (Auto) 0.03 K/uL Prothrombin Time 10.2 SECONDS Prothromb Time International Ratio 1.0 Activated Partial Thromboplast Time 24.4 SECONDS Partial Thromboplastin Ratio 0.9 Sodium Level 142 mmol/L Potassium Level 4.2 mmol/L Chloride Level 108 mmol/L Carbon Dioxide Level 29 mmol/L Anion Gap 5.0 mmol/L 17.0 mmol/L Blood Urea Nitrogen 17 mg/dl Creatinine 1.10 mg/dl Est Creatinine Clear Calc Drug Dose 81.2 ml/min Estimated GFR () 77.3 Estimated GFR (Non- 66.7 BUN/Creatinine Ratio 15.1 Random Glucose 87 mg/dl Calcium Level 8.9 mg/dl Total Creatine Kinase 110 U/L Creatine Kinase MB 1.3 ng/ml Creatine Kinase MB Ratio 1.2 Troponin I < 0.015 ng/ml Bedside Hemoglobin 13.6 g/dl Bedside Hematocrit 40 % Bedside Sodium 142 mEq/L Bedside Potassium 4.2 mEq/L Bedside Chloride 105 mEq/L Bedside Total CO2 25 mEq/l Bedside Blood Urea Nitrogen 17 mg/dl Bedside Creatinine 1.0 mg/dl Bedside Glucose (other) 85 mg/dl Bedside Ionized Calcium (Mike) 1.20 mmol/l Urine Color YELLOW Urine Appearance CLEAR Urine pH 5.0 Urine Specific Alpine 1.028 Urine Protein TRACE Urine Glucose (UA) 2+ Urine Ketones NEG Urine Occult Blood NEG Urine Nitrite NEG Urine Bilirubin NEG Urine Urobilinogen NEG Urine Leukocyte Esterase NEG Urine WBC (Auto) 1-5 /hpf Urine RBC (Auto) 0-4 /hpf Urine Hyaline Casts (Auto) 1-5 /lpf Urine Epithelial Cells (Auto) 5-10 /lpf Urine Bacteria (Auto) NEG Test 12/19/16 22:22 12/20/16 06:31 12/20/16 11:08 12/20/16 16:05 Bedside Glucose 145 mg/dl 132 mg/dl 202 mg/dl 172 mg/dl Assessment & Plan IMPRESSION AND PLAN: 1. Recurrent transient ischemic attack with history of stroke in December 2015, status post tissue plasminogen activator during that time. -- symptoms all resolved while at the ER Telestroke conference with Kellie performed, TPA not recommended -- MRI Brain pending Echo: will need to have contrast per Dr. Bates, echo re-ordered EEG pending -- continue on usual Aspirin and Aggrenox Neurology consulted, need to r/o Seizure per Dr. Hernandez 2. Coronary artery disease status post right coronary artery stent in 2012 and status post non-ST segment elevation myocardial infarction in the past. -- Continue with current medications, beta blake, lisinopril and also Aggrenox. 3. Dementia. -- baseline per Has been on Aricept, continue with that. 4. Diabetes type 2, on insulin and metformin. Hold metformin, continue insulin and put him on a sliding scale coverage. 5. Chronic obstructive pulmonary disease. -- stable 6. Sleep apnea -- Use CPAP at night with oxygen 7. Hypertension. -- hold Lisinopril given possible TIA monitor 8. Hyperlipidemia. Continue current medications. 9. Gastrointestinal prophylaxis with Protonix. 10. Deep venous thrombosis prophylaxis with subcutaneous heparin. 11. Code status. He will be a full code. Dispo pending lives at home with Current Inpatient Medications: Current Inpatient Medications Medications (Trade) Dose Ordered Sig/Atiya Route Start Time Stop Time Status Last Admin Dose Admin Heparin Sodium (Porcine) (Heparin Sq 5000 Unit/0.5ml) 5,000 unit Q8 SQ 12/19/16 22:00 01/18/17 21:59 12/20/16 13:17 5,000 UNIT Potassium Chloride/Sodium Chloride 1,000 ml @ 80 mls/hr [id number] IV 12/19/16 21:45 01/18/17 21:44 12/20/16 08:37 80 MLS/HR Acetaminophen (Tylenol Tab) 650 mg Q4H PRN PO 12/19/16 21:00 01/18/17 20:59 Ondansetron HCl (Zofran Inj) 4 mg Q6H PRN IV 12/19/16 21:00 01/18/17 20:59 Aspirin (Ecotrin Tab) 81 mg BID PO 12/19/16 21:00 01/18/17 20:59 12/20/16 08:35 81 MG Atorvastatin Calcium (Lipitor Tab) 40 mg HS PO 12/19/16 21:00 01/18/17 20:59 12/19/16 22:28 40 MG Dipyridamole/ Aspirin (Aggrenox 200MG/ 25MG Cap) 1 cap BID PO 12/19/16 21:00 01/18/17 20:59 12/20/16 08:36 1 CAP Donepezil HCl (Aricept Tab) 10 mg QPM PO 12/19/16 21:00 01/18/17 20:59 Insulin Aspart (novoLOG ASPART) ACHS SC 12/19/16 21:00 01/18/17 20:59 12/20/16 17:20 6 UNITS Insulin Glargine (Lantus Solostar Pen) 66 units QPM SC 12/19/16 21:00 01/18/17 20:59 12/20/16 08:35 66 UNITS Metoprolol Tartrate (Lopressor Tab) 12.5 mg QPM PO 12/19/16 21:00 01/18/17 20:59 12/19/16 22:27 12.5 MG Miscellaneous Information (Order Awaiting Action) 1 ea QS N/A 12/20/16 00:00 01/19/17 00:00 Miscellaneous Information (Order Awaiting Action) 1 QS N/A 12/20/16 00:00 01/19/17 00:00 Glucose (Glucose 40% Gel) 15-30 GRAMS 15 GRAMS... UD PRN PO 12/19/16 21:45 01/18/17 21:44 Glucose (Glucose Chew Tab) 4-8 Tablets 4 Tabl... UD PRN PO 12/19/16 21:45 01/18/17 21:44 Dextrose (Dextrose 50% 50ML Syringe) 25-50ML OF 50% DW IV FOR... UD PRN IV 12/19/16 21:45 01/18/17 21:44 Glucagon (Glucagon Inj) 1 mg UD PRN SQ 12/19/16 21:45 01/18/17 21:44 Lorazepam (Ativan Tab) 0.5 mg ONE PRN PO 12/20/16 13:45 01/19/17 13:44 Miscellaneous Information (Pharmacist Discharge Med Rec Consult) 1 ea UD PRN N/A 12/20/16 16:00 01/19/17 15:59
[2016-12-20] MEDS: DONEPEZIL HCL 10 MG TAB PO SCH (20:34)
[2016-12-20] MEDS: ATORVASTATIN 40 MG TAB PO SCH (20:34)
[2016-12-20] MEDS: METOPROLOL TARTRATE 25 MG TAB PO SCH (20:37)
--- NOTE | 2016-12-20 20:37 | NEUROLOGY CONSULTATION ---
DATE OF CONSULTATION: 12/20/2016 REASON FOR CONSULTATION: Staring spell with dysarthria. HISTORY OF PRESENT ILLNESS: The patient serves as the chief historian as well as the chart. I attempted to call his , but there was no answer on his cell phone. The 71-year-old with a complaint of stroke like symptoms. The patient has no recollection, if the sudden onset of slurred speech and right-sided weakness. While on route, on the EMS, he had waxing and waning of symptoms, improving, symptoms worsening, he was confused. Blood sugar was normal. Blood pressure mildly hypertensive. That is per the ER records. Per Dr. Nolen's records, the noticed that he was not talking normally and when he talked the speech was garbled and he would stare. He was staring, was not chewing, keeping the food in his mouth without swallowing. He had a similar episode in the ambulance. CT of the head noncontrast shows no acute intracranial findings, white matter hypodensity suggestive of small vessel disease. LABORATORY AND IMAGING DATA: Normal white count, normal H&H. Chemistry profile on admission: Glucose was 79, chloride 108. Otherwise, all were negative. Urinalysis 5-10 epithelial cells, trace protein. His EKG - normal sinus rhythm, anteroseptal infarct. PAST MEDICAL HISTORY: Stroke in December of 2015 status post TPA during that time at [facility], recurrent TIAs since then, coronary artery disease status post PA, drug-eluting stent placement April 20, type 2 diabetes, COPD, sleep apnea, BiPAP on oxygen, hyperlipidemia, hypertension, diastolic dysfunction, and dementia. SURGICAL HISTORY: Cardiac cath, stent, tonsillectomy, cataract, thoracoscopy, partial pulmonary decortication due to benign mass in left lung, laparoscopic repair of hernia and minor shoulder surgery. FAMILY HISTORY: Sister has Alzheimer disease. Brother, heart disease, at 30 of an PA. Father, heart disease. Mother, heart disease. SOCIAL HISTORY: He quit smoking in 1997. Drinks occasionally. 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 ALLERGIES: PLAVIX. MEDICATIONS: Metformin, aspirin, Lipitor, Aggrenox, Aricept, Tricor, insulin, Lantus, lisinopril, Lopressor, niacin. REVIEW OF SYSTEMS: The patient denies any neurologic symptoms, but is somewhat unreliable. PHYSICAL EXAMINATION: VITAL SIGNS: 36.6, 69, 20, 145/65, 91%. GENERAL: The patient is awake, alert, oriented to person only, think it is December of 2015 and he thinks he is in a camp. He has significant word-finding difficulty, some difficulty with naming. Memory is 0/3 at 3 minutes. Fund of knowledge is poor. NECK: There are no carotid bruits. HEART: No heart murmurs. He has regular rate and rhythm. LUNGS: Clear. NEUROLOGIC: Pupils are equal. Optic nerves unremarkable. Normal salmon, motility, facial symmetry. There is mild reduction of left learning technologies specialist. Sensation is intact bilaterally. [id number] and [id number] are normal. Reflexes are symmetric. Left toe may be upgoing. IMPRESSION: Transient ischemic attack versus partial complex seizure. PLAN: MRI of brain, carotid ultrasound, EEG, echocardiography with bubble study, telemetric monitoring as well as depending on results of imaging potentially CardioNet monitoring as an outpatient. Will follow with you. CHELITA
--- NOTE | 2016-12-20 22:57 | DIAGNOSTIC IMAGING REPORT ---
ORBIT RADIOGRAPHS 3 VIEWS HISTORY: pre-MRI screening. COMPARISON: None. FINDINGS: There are no radiopaque foreign bodies identified within the orbits. IMPRESSION: No radiopaque foreign bodies identified within the orbits. Electronically signed by: Deondre Carmona M.D. 12/20/2016 10:55 PM Dictated Date/Time: 12/20/2016 10:55 PM
[2016-12-21 04:15] VITALS: BP 187/98; PULSE 99; TEMP 36.5; O2SAT 91
[2016-12-21] MEDS: HEPARIN SOD 5000 UNIT/0.5 ML CARP SQ SCH ×2 (06:01→14:13)
[2016-12-21 06:09] LABS: BASO % 0.2 %; BASO ABS # 0.01 K/uL (0-0.2); COMPLETE YES; EOS % 5.2 %; HEMATOCRIT 43.4 % (42-52); IG% 0.3 %; LYMPH % 20.8 %; LYMPH ABS # 1.29 K/uL (1.2-3.4); MEAN CORPUSCULAR HGB CONC 32.3 g/dl (32-36); MEAN PLATELET VOLUME 10.1 fL (7.4-10.4); MONO % 8.4 %; NEUT % 65.1 %; PLATELET COUNT 133 K/uL (130-400); RED BLOOD COUNT 4.52 M/uL (4.7-6.1); WHITE BLOOD COUNT 6.21 K/uL (4.8-10.8)
[2016-12-21] MEDS ORDERED: PERFLUTREN LIPID MICROSPHERE (DEFINITY) IV ONE (06:32)
[2016-12-21 06:40] LABS: BUN/CREATININE RATIO 14.2 (10-20); CALCIUM 9.1 mg/dl (8.5-10.1); CREATININE 0.93 mg/dl (0.60-1.40); POTASSIUM 4.2 mmol/L (3.5-5.1)
[2016-12-21 06:43] LABS: CHOLESTEROL/HDL RATIO 3.5
[2016-12-21 07:15] VITALS: BP 155/80; PULSE 96; TEMP 36.6; O2SAT 93
[2016-12-21] MEDS: TRICOR~ORDER AWAITING ACTION SCH ×2 (07:21→15:58)
[2016-12-21 07:27] LABS: ESTIMATED AVERAGE GLUCOSE 200 mg/dl; HA1C FLAG Normal (Normal)
--- NOTE | 2016-12-21 07:41 | ECHOCARDIOGRAM REPORT ---
*NOTICE TO RECEIVING DEMOCRAT AGENCY This information is strictly Confidential and protected under [place] law. [place] law prohibits you from making any further disclosure of this information unless further disclosure is expressly permitted by the written consent of the person to whom it pertains or is authorized by law. A general authorization for the release of medical or other information is not sufficient for this purpose. Hospital accepts no responsibility if the information is made available to any other person, INCLUDING THE PATIENT. Interpretation Summary * Name: CARRIE BURKS Study Date: 12/21/2016 06:35 AM * Patient Location: C.2T\S\S230\S\1 HR: 94 * : 1945 (M/d/yyyy) Gender: Male Height: 69 in * Age: 71 yrs Ethnicity: [place] Weight: 273 lb * Ordering Physician: Garcia Trujillo * Referring Physician: Self, Referred * Performed By: James Bermeo RCS * * Reason For Study: TIA/ Follow up with Definity * BSA: 2.4 m2 * -- Conclusions -- * A focused study was performed to assess left ventricular wall motion. * Ultrasound contrast was injected into an intravenous site in the right arm to improve delineation of the endocardial border. * Refer to report of the prior study dated 12/20/16 for details of complete resting study. Procedure Details * A contrast injection of Definity was performed to improve assessment of LV function. * Contrast was injected into an intravenous site in the right arm. * One vial of Definity ultrasound contrast was diluted in normal saline to a total volume of 10 ml. A total of '4' ml of solution was administered during imaging. * Lot # [id number] of Definity utilized for procedure. * Expiration date 1aug18. * The attending nurse who injected the contrast agent was Yseenia Sheffield RN. Left Ventricle * The left ventricle is normal in size. * There is no left ventricular mural thrombus. * There is normal left ventricular wall thickness. * The left ventricle is hyperdynamic. * Ejection Fraction = >70 %. * No regional wall motion abnormalities noted.
[2016-12-21] MEDS: ASPIRIN 81 MG ECTAB PO SCH (07:58)
[2016-12-21] MEDS: DIPYRIDAMOLE/ASPIRIN CAP PO SCH (07:58)
[2016-12-21] MEDS: INSULIN ASPART 100 UNITS/ML 3 ML PEN SC SCH ×3 (08:02→17:05)
[2016-12-21 11:28] VITALS: BP 149/78; PULSE 84; TEMP 36.9; O2SAT 92
[2016-12-21] MEDS: NSS + 20MEQ KCL 1000ML 1,000 ML IV SCH (11:57)
--- NOTE | 2016-12-21 16:07 | DIAGNOSTIC IMAGING REPORT ---
BRAIN WITHOUT CONTRAST HISTORY: Mental status change Stroke, recurrent TIAS TECHNIQUE: Multiplanar multisequence MRI of the brain was performed without the use of contrast. COMPARISON STUDY: CT brain FINDINGS: Mild in homogeneity of the mid to lower based on diffusion images. This is also seen in the coronal FLAIR images. This may indicate a small punctate subacute infarct. Artifact is also a consideration. Moderate chronic small vessel change of the periventricular and deep white matter regions. Mild compensatory ventricular prominence. No deviation of midline structures. IMPRESSION: 1. Generalized atrophy and chronic small vessel change similar compared to the prior study. Possible punctate subacute infarct anterior/central nereida versus artifact. The above report was generated using voice recognition software. It may contain grammatical, syntax or spelling errors. Electronically signed by: Brady Menjivar M.D. 12/21/2016 4:05 PM Dictated Date/Time: 12/21/2016 4:01 PM
--- NOTE | 2016-12-21 16:07 | DIAGNOSTIC IMAGING REPORT ---
MRA NECK WITHOUT CONTRAST CLINICAL HISTORY: Stroke. Recurrent transient ischemic attack. COMPARISON STUDY: 03/09/2014, carotid Doppler ultrasound dated 12/13/2015 FINDINGS: The examination is markedly limited from a technical standpoint. Only one sequence was performed. The patient began to climb at the scanner refused additional scanning at this time. There is probable narrowing of the proximal left internal carotid artery. The left vertebral artery appears dominant. IMPRESSION: 1. Nondiagnostic study with probable narrowing of the proximal left internal carotid artery. 2. CT angiography of the neck is recommended in follow-up, as this is more likely to be a diagnostic study Electronically signed by: Deondre Carmona M.D. 12/21/2016 4:06 PM Dictated Date/Time: 12/21/2016 4:02 PM
[2016-12-21] MEDS ORDERED: KPP250 PO (18:26)
--- NOTE | 2016-12-21 18:31 | EEG Procedure Note ---
EEG Procedure Note Date of Service Dec 20, 2016. Start / End Times Start Time: 6:57 PM End Time: 6:17 PM Referring Physician Jossy Hernandez History This is a 71-year-old male with recurrent symptoms of staring and dysarthria. EEG for further evaluation of possible seizure etiology. Home Medication List Scheduled Aspirin (Aspirin Chewable), 81 MG PO BID Atorvastatin (Lipitor), 40 MG PO HS Dipyridamole/Aspirin (Aggrenox 25-200 mg), 1 CAP PO BID Donepezil Hydrochloride (Aricept), 10 MG PO QPM Fenofibrate (Tricor), 67 MG PO DAILY AT NOON Insulin Aspart (Novolog Flexpen), 1 DOSE SC QID Insulin Glargine (Lantus), 66 UNITS SC QPM Lisinopril (Zestril), 5 MG PO DAILY AT NOON Metformin Hcl (Glucophage), 1,000 MG PO BID Metoprolol Tartrate (Lopressor), 12.5 MG PO QPM Niacin Ext Rel (Niaspan Ext Rel), 750 MG PO BID Inpatient Medication List Current Inpatient Medications Medications (Trade) Dose Ordered Sig/Atiya Route Start Time Stop Time Status Last Admin Dose Admin Heparin Sodium (Porcine) (Heparin Sq 5000 Unit/0.5ml) 5,000 unit Q8 SQ 12/19/16 22:00 01/18/17 21:59 12/21/16 14:13 5,000 UNIT Potassium Chloride/Sodium Chloride 1,000 ml @ 80 mls/hr [id number] IV 12/19/16 21:45 01/18/17 21:44 12/21/16 11:57 80 MLS/HR Acetaminophen (Tylenol Tab) 650 mg Q4H PRN PO 12/19/16 21:00 01/18/17 20:59 Ondansetron HCl (Zofran Inj) 4 mg Q6H PRN IV 12/19/16 21:00 01/18/17 20:59 Aspirin (Ecotrin Tab) 81 mg BID PO 12/19/16 21:00 01/18/17 20:59 12/21/16 07:58 81 MG Atorvastatin Calcium (Lipitor Tab) 40 mg HS PO 12/19/16 21:00 01/18/17 20:59 12/20/16 20:34 40 MG Dipyridamole/ Aspirin (Aggrenox 200MG/ 25MG Cap) 1 cap BID PO 12/19/16 21:00 01/18/17 20:59 12/21/16 07:58 1 CAP Donepezil HCl (Aricept Tab) 10 mg QPM PO 12/19/16 21:00 01/18/17 20:59 12/20/16 20:34 10 MG Insulin Aspart (novoLOG ASPART) ACHS SC 12/19/16 21:00 01/18/17 20:59 12/21/16 11:58 5 UNITS Insulin Glargine (Lantus Solostar Pen) 66 units QPM SC 12/19/16 21:00 01/18/17 20:59 12/20/16 08:35 66 UNITS Metoprolol Tartrate (Lopressor Tab) 12.5 mg QPM PO 12/19/16 21:00 01/18/17 20:59 12/20/16 20:37 12.5 MG Miscellaneous Information (Order Awaiting Action) 1 ea QS N/A 12/20/16 00:00 01/19/17 00:00 Miscellaneous Information (Order Awaiting Action) 1 ea QS N/A 12/20/16 00:00 01/19/17 00:00 Glucose (Glucose 40% Gel) 15-30 GRAMS 15 GRAMS... UD PRN PO 12/19/16 21:45 01/18/17 21:44 Glucose (Glucose Chew Tab) 4-8 Tablets 4 Tabl... UD PRN PO 12/19/16 21:45 01/18/17 21:44 Dextrose (Dextrose 50% 50ML Syringe) 25-50ML OF 50% DW IV FOR... UD PRN IV 12/19/16 21:45 01/18/17 21:44 Glucagon (Glucagon Inj) 1 mg UD PRN SQ 12/19/16 21:45 01/18/17 21:44 Lorazepam (Ativan Tab) 0.5 mg ONE PRN PO 12/20/16 13:45 01/19/17 13:44 12/21/16 14:35 0.5 MG Miscellaneous Information (Pharmacist Discharge Med Rec Consult) 1 ea UD PRN N/A 12/20/16 16:00 01/19/17 15:59 Description This is a 21 electrode EEG with a single channel dedicated to limited EKG. The electrodes were placed in accordance with the International 10-20 system. Start of this recording the patient was fitted reported altered mental status. Background was poorly organized with a poorly formed anterior to posterior gradient. Background was composed of a symmetric moderate amplitude predominantly 5-6 Hz theta frequencies with intermixed alpha and beta frequencies. Hyperventilation was not done. Photic stimulation at various frequencies did not produce any abnormalities. There was no state changes or sleep transients. Interpretation This is an abnormal routine EEG secondary to mild background disorganization and slowing. There was no electrographic seizures or epileptiform discharges. Clinical Correlation This EEG indicates a mild encephalopathy of nonspecific etiology.
--- NOTE | 2016-12-21 18:35 | Discharge Instructions ---
Discharge Instructions Date of Service Dec 21, 2016. Admission Reason for Admission: History Of Recurrent Tias,Stroke-Like Symptoms Discharge Discharge Diagnosis / Problem: tia/cva vs seizures Discharge Goals Goal(s): Decrease discomfort, Improve function Activity Recommendations Activity Limitations: resume your previous activity . Instructions / Follow-Up Instructions / Follow-Up FOLLOWUP WITH FAMILY DOCTOR Jabari Rainey ON December AT 10:25AM. FOLLOW UP WITH NEUROLOGY SCHEDULED NEXT TUESDAY. Current Hospital Diet Patient's current hospital diet: AHA Diet (Heart Healthy), Diabetes Type 2 Diet Discharge Diet Recommended Diet: AHA Diet (Heart Healthy), Diabetes Type 2 Diet Pending Studies Studies pending at discharge: no Laboratory Results Hemoglobin A1c Test 12/21/16 05:50 Range/Units Estimated Average Glucose 200 mg/dl Hemoglobin A1c 8.6 H 4.5-5.6 % Lipid Panel Test 12/21/16 05:50 Range/Units Triglycerides Level 588 H 0-150 mg/dl Cholesterol Level 140 0-200 mg/dl HDL Cholesterol 40 mg/dl Cholesterol/HDL Ratio 3.5 LDL Cholesterol, Calculated mg/dl Medical Emergencies . Who to Call and When: Medical Emergencies: If at any time you feel your situation is an emergency, please call 911 immediately. . Non-Emergent Contact Non-Emergency issues call your: Primary Care Provider . . "Provider Documentation" section prepared by Berto Strickland. . VTE Core Measure Inpt VTE Proph given/why not?: Unfractionated heparin SQ
[2016-12-21 18:41] VITALS: BP 149/78; PULSE 84; TEMP 36.9; O2SAT 92
--- NOTE | 2016-12-21 18:50 | Progress Note ---
Internal Med Progress Note Date of Service: Dec 21, 2016. Provider Documentation: SUBJECTIVE: resting comfortably denies pain says he is doing fine eating ok wants to take patient home to prevent delirium OBJECTIVE: Vital Signs-as noted below Exam: General-alert and awake. Not in distress ENT-normal hearing Neck-no neck masses Lungs-cta b/l no wheezing or crackles Heart-s1 and s2 heard regular rhythm no murmurs Abdomen-soft bowel sounds present non tender no distension Extremities-no edema no erythema Neuro-alert and oriented moves extremities Lab data as noted below. ASSESSMENT & PLAN: 1. Recurrent transient ischemic attack with history of stroke in December 2015, status post tissue plasminogen activator during that time. Presented with dysarthria. Symptoms all resolved while at the ER Telestroke conference with Kellie performed, TPA not recommended MRI Brain possible subacute infarct anterior/central nereida vs artifact Echo: no pfo or shunt EEG mild encephalopathy of unknown cause Neurology recommends small dose of Keppra q hs and followup as out patient to continue home aspirin and Aggrenox.(patient allergic to Plavix) 2. Coronary artery disease status post right coronary artery stent in 2012 and status post non-ST segment elevation myocardial infarction in the past. stable on beta blake, lisinopril and also Aggrenox. 3. Dementia. On Aricept. 4. Diabetes type 2, on insulin and metformin. d/c on home meds. 5. Chronic obstructive pulmonary disease. stable. 6. Sleep apnea -CPAP at night with oxygen 7. Hypertension. d/c on home meds 8. Hyperlipidemia. Continue current medications. Discharged home Vital Signs: Date Time Temp Pulse Resp B/P (MAP) Pulse Ox O2 Delivery O2 Flow Rate FiO2 12/21/16 18:41 36.9 84 16 92 Room Air 12/21/16 16:19 Room Air 12/21/16 12:00 Room Air 12/21/16 11:28 36.9 84 16 149/78 (101) 92 Room Air 12/21/16 08:30 Nasal Cannula 2.0 12/21/16 07:15 36.6 96 20 155/80 (105) 93 Room Air 12/21/16 04:15 36.5 99 18 187/98 (127) 91 3.0 12/21/16 04:00 Room Air 12/20/16 23:59 Room Air 12/20/16 23:09 36.9 88 18 156/81 (106) 94 12/20/16 20:15 36.6 78 20 155/77 (103) 92 Room Air 12/20/16 20:00 91 Room Air Lab Results: Results Past 24 Hours Test 12/20/16 20:31 12/21/16 05:50 12/21/16 06:46 12/21/16 11:11 Range/Units Bedside Glucose 197 188 205 70-99 mg/dl White Blood Count 6.21 4.8-10.8 K/uL Red Blood Count 4.52 4.7-6.1 M/uL Hemoglobin 14.0 14.0-18.0 g/dL Hematocrit 43.4 42-52 % Mean Corpuscular Volume 96.0 80-100 fL Mean Corpuscular Hemoglobin 31.0 25-34 pg Mean Corpuscular Hemoglobin Concent 32.3 32-36 g/dl Platelet Count 133 130-400 K/uL Mean Platelet Volume 10.1 7.4-10.4 fL Neutrophils (%) (Auto) 65.1 % Lymphocytes (%) (Auto) 20.8 % Monocytes (%) (Auto) 8.4 % Eosinophils (%) (Auto) 5.2 % Basophils (%) (Auto) 0.2 % Neutrophils # (Auto) 4.05 1.4-6.5 K/uL Lymphocytes # (Auto) 1.29 1.2-3.4 K/uL Monocytes # (Auto) 0.52 0.11-0.59 K/uL Eosinophils # (Auto) 0.32 0-0.5 K/uL Basophils # (Auto) 0.01 0-0.2 K/uL RDW Standard Deviation 48.5 36.4-46.3 fL RDW Coefficient of Variation 13.8 11.5-14.5 % Immature Granulocyte % (Auto) 0.3 % Immature Granulocyte # (Auto) 0.02 0.00-0.02 K/uL Sodium Level 141 136-145 mmol/L Potassium Level 4.2 3.5-5.1 mmol/L Chloride Level 107 98-107 mmol/L Carbon Dioxide Level 26 21-32 mmol/L Anion Gap 8.0 3-11 mmol/L Blood Urea Nitrogen 13 7-18 mg/dl Creatinine 0.93 0.60-1.40 mg/dl Est Creatinine Clear Calc Drug Dose 93.4 ml/min Estimated GFR () 94.7 Estimated GFR (Non- 81.7 BUN/Creatinine Ratio 14.2 10-20 Random Glucose 185 70-99 mg/dl Estimated Average Glucose 200 mg/dl Hemoglobin A1c 8.6 4.5-5.6 % Calcium Level 9.1 8.5-10.1 mg/dl Triglycerides Level 588 0-150 mg/dl Cholesterol Level 140 0-200 mg/dl HDL Cholesterol 40 mg/dl LDL Cholesterol, Calculated mg/dl VLDL Cholesterol, Calculated mg/dl Cholesterol/HDL Ratio 3.5 Test 12/21/16 16:07 12/21/16 16:35 Range/Units Bedside Glucose 185 196 70-99 mg/dl
--- NOTE | 2016-12-21 19:04 | PROGRESS NOTE ---
DATE: 12/21/2016 SUBJECTIVE: I am seeing Mr. Castro in followup of a relatively unresponsive episode with prior episodes that are fairly similar where he will just stare and have garbled speech, be relatively unresponsive. MRI raises the question whether or not there is some small acute ischemia in the nereida. I think any ischemic changes there are chronic and certainly one would never expected a pontine event to have caused his clinical symptomatology. The EEG is not back yet, although we are attempting to get it red. I think given that these spells of occurred on multiple occasions they are relatively stereotype. They might represent partial complex seizures and I have spoken to his and I think at this point having exclude arrhythmias, hypoglycemia that will treat empirically with Keppra, will start 250 at night and he will see Dr. Macias next week. This treatment is empiric, but if it may prevent further episodes and subsequent hospitalizations. CHELITA
--- NOTE | 2016-12-21 20:06 | Discharge Summary ---
Discharge Summary Date of Service Dec 21, 2016. Discharge Summary Admission Date: Dec 19, 2016 at 20:58 Discharge Date: Dec 21, 2016 Discharge Disposition: Home with services Principal Diagnosis: tia/cva vs seizures Secondary Diagnoses/Problems: status post stroke in December 2015, status post TPA during that time in [facility]; recurrent TIAs since then; CAD with history of non-ST elevation [place] and status post drug-eluting stent placement in April 2013; diabetes type 2; COPD; obesity; sleep apnea, on BIPAP with oxygen; hyperlipidemia; hypertension; and history of diastolic dysfunction. Procedures: CT HEAD: No acute intracranial findings. MRI BRAIN: 1. Generalized atrophy and chronic small vessel change similar compared to the prior study. Possible punctate subacute infarct anterior/central nereida versus artifact. NECK MRA: 1. Nondiagnostic study with probable narrowing of the proximal left internal carotid artery. 2. CT angiography of the neck is recommended in follow-up, as this is more likely to be a diagnostic study ECHO: The left ventricular ejection fraction is grossly normal. * The endocardial border is well defined and therefore the LV apex is not well visualized and analysis of regional wall motion is technically limited. * Recommend obtaining additional images with the use of ultasound contrast. * The interatrial septum is intact with no evidence for an atrial septal defect. * Injection of contrast documented no interatrial shunt. EEG: This is an abnormal routine EEG secondary to mild background disorganization and slowing. There was no electrographic seizures or epileptiform discharges. Consultations: NEUROLOGY Medication Reconciliation New Medications: Levetiractam (Keppra) 250 Mg Tab 250 MG PO HS, #30 1 Refill Continued Medications: Aspirin (Aspirin Chewable) 81 Mg Chew 81 MG PO BID Atorvastatin (Lipitor) 40 Mg Tab 40 MG PO HS, TAB Dipyridamole/Aspirin (Aggrenox 25-200 mg) 1 Cap Cap 1 CAP PO BID, CAP Donepezil Hydrochloride (Aricept) 10 Mg Tab 10 MG PO QPM, TAB Fenofibrate (Tricor) 67 Mg Cap 67 MG PO DAILY AT NOON, CAP Insulin Aspart (Novolog Flexpen) 100 Units/Ml Inj 1 DOSE SC QID PER SLIDING SCALE Insulin Glargine (Lantus) 100 Unit/Ml Inj 66 UNITS SC QPM, VIAL IN ADDITION TO SLIDING SCALE Lisinopril (Zestril) 5 Mg Tab 5 MG PO DAILY AT NOON, TAB Metformin Hcl (Glucophage) 1,000 Mg Tab 1000 MG PO BID, TAB Metoprolol Tartrate (Lopressor) 25 Mg Tab 12.5 MG PO QPM, TAB Niacin Ext Rel (Niaspan Ext Rel) 750 Mg Tabcr 750 MG PO BID, TAB Admission Information HPI (per Admitting provider): He is a 71-year-old male with significant past medical history including stroke in December of 2015, status post TPA during that time; history of recurrent TIAs; diabetes type 2; CAD with stent placement; COPD; sleep apnea; hypertension; hyperlipidemia; apparently was in [place] today for supper. His noticed that he was not talking normally and when he was talking the speech was garbled and also his look was like stare in front and whenever he started eating, he was not chewing, was keeping the food inside the mouth without swallowing. The condition did not improve and he was not communicating. At that time, EMS was called and initially the symptoms improved, but again in the ambulance he had similar episode of dysarthria and stare looking, and that resolved in the Emergency Room as well. He denies to have any recent fever, chills or rigors. No chest pain, shortness of breath, palpitation. No visual symptoms. No numbness or tingling involving any of the extremities. No weakness involving any side, though according to the , he has some weakness in the left upper extremity that has been going on for the last 2 days. He does not have any problem with urine and/or bowel habit. In the ER, his vitals were stable and initial CAT scan negative. A teleconference was done with Dr. Larios at [facility]. The symptom resolved and he is not a candidate for TPA and advised to continue current medications with stroke workup and admission to the hospital Physical Exam (per Admitting): GENERAL: On examination in the Emergency Room, he was not having any acute symptoms. VITAL SIGNS: Temperature 37.4, pulse 79, blood pressure 170/73, saturation 96% on 2 liters nasal cannula. HEENT: Unremarkable. NECK: Supple. No JVD, no bruit. CHEST: Decreased breath sounds but no wheezing and/or crackles. HEART: S1, S2 regular. ABDOMEN: Soft, benign, mildly distended, nontender. No organomegaly. Bowel sounds present. EXTREMITIES: Trace edema bilaterally. MUSCULOSKELETAL: Did not show any acute arthritis involving any joint. CENTRAL NERVOUS SYSTEM: He was alert, awake, oriented. He did not have any focal neurological deficit. Hospital Course 1. Recurrent transient ischemic attack with history of stroke in December 2015, status post tissue plasminogen activator during that time. Presented with dysarthria. Symptoms all resolved while at the ER Telestroke conference with Kellie performed, TPA not recommended MRI Brain possible subacute infarct anterior/central nereida vs artifact Echo: no pfo or shunt EEG mild encephalopathy of unknown cause Neurology recommends small dose of Keppra q hs and followup as out patient to continue home aspirin and Aggrenox.(patient allergic to Plavix) 2. Coronary artery disease status post right coronary artery stent in 2012 and status post non-ST segment elevation myocardial infarction in the past. stable on beta blake, lisinopril and also Aggrenox. 3. Dementia. On Aricept. 4. Diabetes type 2, on insulin and metformin. d/c on home meds. 5. Chronic obstructive pulmonary disease. stable. 6. Sleep apnea -CPAP at night with oxygen 7. Hypertension. d/c on home meds 8. Hyperlipidemia. Continue current medications. Discharged home Total time spent on discharge = 35MINUTES This includes examination of the patient, discharge planning, medication reconciliation, and communication with other providers. Discharge Instructions Discharge Instructions Date of Service Dec 21, 2016. Admission Reason for Admission: History Of Recurrent Tias,Stroke-Like Symptoms Discharge Discharge Diagnosis / Problem: tia/cva vs seizures Discharge Goals Goal(s): Decrease discomfort, Improve function Activity Recommendations Activity Limitations: resume your previous activity . Instructions / Follow-Up Instructions / Follow-Up FOLLOWUP WITH FAMILY DOCTOR Jabari Rainey ON December AT 10:25AM. FOLLOW UP WITH NEUROLOGY SCHEDULED NEXT TUESDAY. Current Hospital Diet Patient's current hospital diet: AHA Diet (Heart Healthy), Diabetes Type 2 Diet Discharge Diet Recommended Diet: AHA Diet (Heart Healthy), Diabetes Type 2 Diet Pending Studies Studies pending at discharge: no Laboratory Results Hemoglobin A1c Test 12/21/16 05:50 Range/Units Estimated Average Glucose 200 mg/dl Hemoglobin A1c 8.6 H 4.5-5.6 % Lipid Panel Test 12/21/16 05:50 Range/Units Triglycerides Level 588 H 0-150 mg/dl Cholesterol Level 140 0-200 mg/dl HDL Cholesterol 40 mg/dl Cholesterol/HDL Ratio 3.5 LDL Cholesterol, Calculated mg/dl Medical Emergencies . Who to Call and When: Medical Emergencies: If at any time you feel your situation is an emergency, please call 911 immediately. .
== END 2016-12-21 19:03 | disposition home or self-care (01) | DRG 69 ==
LOC: EDBD 18:48 → C.EDB 18:49 → C.2T 20:58 → ENRESERV 21:08
PROVIDERS: ADMIT Internal Medicine; ATTEND Internal Medicine
DX: G45.9 Transient cerebral ischemic attack, unspecified (principal); Z68.41 Body mass index [BMI] 40.0-44.9, adult; G40.209 Localization-related (focal) (partial) symptomatic epilepsy and epileptic syndromes with complex partial seizures, not intractable, without status epilepticus; I25.10 Atherosclerotic heart disease of native coronary artery without angina pectoris; I10 Essential (primary) hypertension; E11.9 Type 2 diabetes mellitus without complications; E78.5 Hyperlipidemia, unspecified; J44.9 Chronic obstructive pulmonary disease, unspecified; I25.2 Old myocardial infarction; F03.90 Unspecified dementia, unspecified severity, without behavioral disturbance, psychotic disturbance, mood disturbance, and anxiety; G47.33 Obstructive sleep apnea (adult) (pediatric); E66.9 Obesity, unspecified; Z79.4 Long term (current) use of insulin; Z79.82 Long term (current) use of aspirin; Z79.899 Other long term (current) drug therapy; Z79.84 Long term (current) use of oral hypoglycemic drugs; Z86.73 Personal history of transient ischemic attack (TIA), and cerebral infarction without residual deficits; Z87.891 Personal history of nicotine dependence; Z95.5 Presence of coronary angioplasty implant and graft; Z82.49 Family history of ischemic heart disease and other diseases of the circulatory system

== ENCOUNTER 2019-06-14 11:11 | Inpatient (IN) ==
[2019-06-14 11:32] LABS: Basophils # (auto) 0.02 K/uL (0-0.2); Basophils % (auto) 0.3 %; Eosinophils # (auto) 0.25 K/uL (0-0.5); Eosinophils % (auto) 3.3 %; Hematocrit (blood only) 39.2 % (42-52); Hemoglobin 13.2 g/dL (14.0-18.0); Immature Granulocytes # (auto) 0.02 K/uL (0.00-0.02); Immature Granulocytes % (auto) 0.3 %; Mean Corpuscular Hemoglobin 30.6 pg (25-34); Mean Corpuscular Hgb Conc 33.7 g/dL (32-36); Mean Corpuscular Volume 90.7 fL (80-100); Mean Platelet Volume 9.7 fL (7.4-10.4); Monocytes # (auto) 0.53 K/uL (0.11-0.59); Neutrophils % (auto) 73.1 %; Platelet Count 167 K/uL (130-400); RDW Coefficient of Variation 14.3 % (11.5-14.5); RDW Standard Deviation 47.9 fL (36.4-46.3); Red Blood Count 4.32 M/uL (4.7-6.1); White Blood Count 7.52 K/uL (4.8-10.8)
[2019-06-14 11:49] LABS: Partial Thromboplastin Ratio 0.9; Partial Thromboplastin Time 23.1 Seconds (21.0-31.0); Prothrombin Time 10.1 Seconds (9.0-12.0)
[2019-06-14 11:50] LABS: Alanine Aminotransferase 19 U/L (12-78); Albumin Level 3.2 gm/dl (3.4-5.0); Aspartate Aminotransferase 13 U/L (15-37); BUN Creatinine Ratio 10.1 (10-20); Blood Urea Nitrogen 14 mg/dl (7-18); Calcium 8.9 mg/dl (8.5-10.1); Carbon Dioxide 26 mmol/L (21-32); Chloride 108 mmol/L (98-107); Creatinine Clr Calc Pharmacy 57.4 ml/min; Est GFR (African American) 58.6; Est GFR (Non-African American) 50.5; Glucose 207 mg/dl (70-99); Magnesium 2.1 mg/dl (1.8-2.4); Potassium 4.7 mmol/L (3.5-5.1); Sodium 139 mmol/L (136-145)
[2019-06-14 11:54] LABS: Albumin Globulin Ratio 0.9 (0.9-2); Alkaline Phosphatase 61 U/L (45-117); Bilirubin,Total 0.4 mg/dl (0.2-1); Globulin 3.7 gm/dl (2.5-4.0); Total Protein 6.9 gm/dl (6.4-8.2); Troponin I < 0.015 ng/ml (0-0.045)
--- NOTE | 2019-06-14 11:54 | CT Scan Report ---
CT SCAN OF THE BRAIN WITHOUT IV CONTRAST CLINICAL HISTORY: Strokelike symptoms. Expressive aphasia. COMPARISON STUDY: CT of the brain dated 11/25/2018. TECHNIQUE: Unenhanced axial CT scan of the brain is performed from the vertex to the skull base. A do se lowering technique was utilized adhering to the principles of ALARA. CT DOSE: 614.27 mGy.cm FINDINGS: Brain parenchyma: There are age-related involutional changes noting moderate subcortical and periven tricular microangiopathic change. There is no hemorrhage, mass effect, or evidence of acute territori al ischemia by CT criteria. Perez-white matter differentiation is preserved. No extra-axial fluid evin ection is seen. Ventricles, sulci, cisterns: Prominent secondary to involutional change. Intracranial vasculature: There is atherosclerotic calcification of the cavernous carotid and vertebr al arteries. Calvarium: Unremarkable. Sinuses and mastoids: The visualized paranasal sinuses are clear. The mastoid air cells are well pneu matized. Cerumen is noted in the external auditory canals. Orbits: The bony orbits are grossly intact. There are bilateral ocular lens implants. IMPRESSION: There is no hemorrhage, mass effect, or evidence of acute territorial ischemia by CT amber gilbert. ACT 112: Negative or not required by law. Electronically signed by: Rudolph Valentino M.D. 06/14/2019 11:53 AM
[2019-06-14] MEDS ORDERED: METOPROLOL TARTRATE 25 MG TAB PO ONE (13:07)
[2019-06-14] MEDS ORDERED: DIPYRIDAMOLE/ASPIRIN CAP PO STA (13:07)
--- NOTE | 2019-06-14 13:10 | History & Physical Report ---
Date of Service June 14, 2019 Assessment & Plan (1) Syncope: (2) Dysarthria: Pt is 74 y/o M with PMH CAD S/P stent, HTN, dyslipidemia, TIA's, CAROLYNN and nocturnal hypoxemia, dementia, DM II, CKD III presented to ER with c/o syncopal episode this morning after getting out of shower. BSG after syncopal episode was 195. EMS transported pt to ER and it was reported they noticed some garbled speech In ER pt afebrile, P: 81, R: 22, BP: 161/86, 93% on RA. No leukocytosis. H/H: 13.2/39, glucose: 207. EKG sinus rhythm CT Head: no acute changes DDX: syncope: vasovagal syncope, orthostatic hypotension, arrhythmia. Dysarthria DDX: TIA, stroke -Tele to monitor for arrhythmias -Lipid and A1C in am -Continue statin, Aggrenox -Pt with history Plavix allergy -MRI brain currently deferred by pt's as she does not believe pt will tolerate -US carotid pending -Orthostatics -PT/OT consult -neurology consult (3) TIA (transient ischemic attack): H/O prior TIA's -Continue Aggrenox (4) DM2 (diabetes mellitus, type 2): A1c: 8.0 on 11/2018 -Hold metformin, Ozempic, home insulin -Basal bolus insulin per protocol (5) CAD (coronary artery disease): S/P Stent No CP or SOB currently or recently reported -Continue metoprolol, rosuvastatin, Aggrenox (6) HLD (hyperlipidemia): -Continue rosuvastatin, fenofibrate (7) Dementia: -Continue memantine, donepezil -Monitor for delirium (8) CAROLYNN (obstructive sleep apnea): History CAROLYNN and nocturnal hypoxemia. Previously on CPAP and oxygen HS however pt intolerant to CPAP and no longer using CPAP or oxygen -May require supplemental oxygen HS (9) CKD (chronic kidney disease), stage III: Cr: 1.36. Baseline: 1.4 -Monitor renal functions, avoid nephrotoxic agents when possible DVT Prophylaxis -Lovenox SQ Reports would want CPR, defibrillation but no mechanical ventilation as per discussion with pt's Follows with Dr Rodriguez for routine care Pt was seen and care coordinated with Dr Casas. See addendum History of Present Illness Chief Complaint: Syncope Primary Care Provider: Jabari Rodriguez MD Pt is 74 y/o M with PMH CAD S/P stent, HTN, dyslipidemia, TIA's, CAROLYNN and nocturnal hypoxemia, dementia, DM II, CKD III presented to ER with c/o syncope. History obtained from pt's secondary to pt's cognitive status. reports pt normal self this morning and got a shower. Reports was in shower for approx 20 minutes and got out and sat on bed. was attempting to dress pt when he had syncopal episode and was able to help guide pt to floor. Denies pt hitting head. Reports pt clammy after episode and otherwise seemed back to his baseline shortly after. Pt did not eat or drink or take his medications yet today. took BSG after syncopal episode and was 195. EMS transported pt to ER and it was reported they noticed some garbled speech. Upon ER arrival no spe ech changes noted. Currently pt denies any complaint. reports pt at baseline mental status currently. reports pt unsteady on his feet and she is currently getting him a walker. Pt chronic urinary incontinence, no noted hematuria. Denies any known fever/chills, N/V/D/C, cough, rashes, rhinorrhea, choking, extremity edema. Pt denies any current, IRWIN, dizziness, vision changes, neck pain, CP, SOB. Allergies Allergy/AdvReac Type Severity Reaction Status Date / Time clopidogrel Allergy Intermediate Skin Verified 06/14/19 12:37 peeling on hands. Home Medications Home Medications Medication Instructions Recorded Confirmed Type cyanocobalamin (vitamin B-12) 1,000 mcg PO QDL #100 tab 11/22/18 06/14/19 History 1,000 mcg tablet donepezil 10 mg tablet 10 mg PO QDL #30 tab 11/22/18 06/14/19 History fenofibrate micronized 67 mg 67 mg PO QDL cap 11/22/18 06/14/19 History capsule memantine 10 mg tablet 10 mg PO BID tab 11/22/18 06/14/19 History rosuvastatin 40 mg tablet 40 mg PO HS tab 11/22/18 06/14/19 History aspirin 25 mg-dipyridamole 200 mg 1 cap PO BID cap 12/18/18 06/14/19 History capsule,ext.release 12 hr multiphase metformin 1,000 mg tablet 1,000 mg PO DAILY tab 12/18/18 06/14/19 History cholecalciferol (vitamin D3) 2,000 unit PO DAILY 06/14/19 06/14/19 History [Vitamin D3] insulin asp prt-insulin aspart 58 unit SUBCUT BID 06/14/19 06/14/19 History [Novolog Mix 70-30FlexPen U-100] metoprolol tartrate 25 mg PO BID 06/14/19 06/14/19 History semaglutide [Ozempic] 1 mg SUBCUT WK 06/14/19 06/14/19 History Past Med/Surg History Medical History (Updated 06/14/19 @ 15:07 by Farnaz Michelle PA-C) Adhesive capsulitis of shoulder (Acute) CAD (coronary artery disease) (Chronic) CAD (coronary artery disease) of artery bypass graft (Acute) Carotid stenosis (Chronic) Chronic cerebral ischemia (Acute) Chronic rhinitis (Acute) CKD (chronic kidney disease), stage III COPD, moderate (Acute) Dementia (Acute) Diabetes (Acute) Diabetic polyneuropathy associated with type 2 diabetes mellitus (Acute) Diastolic dysfunction (Acute) DM2 (diabetes mellitus, type 2) (Chronic) Dyslipidemia (Acute) History of left heart catheterization (LHC) (Chronic) History of recurrent TIAs HLD (hyperlipidemia) (Chronic) Hypertriglyceridemia (Acute) Hypoxemia (Acute) Mixed Alzheimer's and vascular dementia (Acute) Nocturnal hypoxemia (Acute) NSTEMI (non-ST elevated myocardial infarction) (Chronic) CAROLYNN (obstructive sleep apnea) (Chronic) Severe obstructive sleep apnea (Acute) SIRS (systemic inflammatory response syndrome) Stroke-like symptom Syncope and collapse TIA (transient ischemic attack) (Chronic) TIA (transient ischemic attack) (Acute 06/12/14) Vascular dementia (Chronic) Surgical History H/O carotid endarterectomy (Chronic) H/O shoulder surgery (Chronic) History of cataract surgery History of heart surgery History of hernia repair History of lung biopsy History of tonsillectomy S/P drug eluting coronary stent placement (Chronic) "RCA 2012" Family History Mother Myocardial infarction Father Myocardial infarction Diabetes Stroke Social History Preferred Language: Korean Communication Ability: Effective 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 Beliefs That Will Affect Care: None marital status: Current Living Situation: Spouse current occupational status: retired Other Information That Helps Us Care for You: No Feels Safe at Home: Yes Safety Concerns: Feels Safe At This Time Smoking Status: Former smoker Tobacco Type: cigarettes ; Do You Dip or Chew Tobacco: No ; Smoking End Date: 1993 ; Second Hand Exposure: No ; Tobacco Cessation Education Requested by Patient: No Hx Alcohol Use: Yes Hx Substance Use: No Review of Systems Review of Systems: Unobtainable due to cognitive status Physical Exam Physical Exam: General: no distress, obese Head: normocephalic, atraumatic Eyes: PERRL, EOM's intact, conjunctiva non-injected, anicteric ENT: normal inspection external ears, nose, mucous membranes moist Neck: supple, trachea midline, non-tender Lungs: clear, no respiratory distress, no wheezing/rhonchi/rales CV: RRR, no pretibial edema Abd: normal BS, soft, non-tender Ext: no cyanosis, no calf tenderness Neuro: A&O x 3, no focal deficits noted, face is strong and symmetric, Hearing grossly intact, Soft palate elevates symmetrically, no dysarthria, shoulder shrug intact, Tongue is midline, normal movement, no fasciculations Strength upper extremities 5/5 bilaterally, strength lower extremities 4/5. Pt pleasant, cooperative Skin: warm, dry Results & Data Vital Signs (Past 12 Hours) Vital Signs Temp Pulse Pulse Resp BP BP Pulse Ox 06/14/19 12:01 75 18 151/76 H 92 06/14/19 11:35 93 06/14/19 11:22 37 C 81 22 161/86 H 93 Laboratory Results Short CBC 06/14/19 Range/Units 11:22 WBC 7.52 (4.8-10.8) K/uL Hgb 13.2 L (14.0-18.0) g/dL Hct 39.2 L (42-52) % Plt Count 167 (130-400) K/uL BMP 06/14/19 11:22 Sodium 139 Potassium 4.7 Chloride 108 H Carbon Dioxide 26 BUN 14 Creatinine 1.36 Glucose 207 H Calcium 8.9 Cardiac Enzymes 06/14/19 Range/Units 11:22 Troponin I < 0.015 (0-0.045) ng/ml Liver Function 06/14/19 Range/Units 11:22 Total Bilirubin 0.4 (0.2-1) mg/dl AST 13 L (15-37) U/L ALT 19 (12-78) U/L Alkaline Phosphatase 61 (45-117) U/L Albumin 3.2 L (3.4-5.0) gm/dl Diagnostic Findings CT HEAD WITHOUT CONTRAST: IMPRESSION: There is no hemorrhage, mass effect, or evidence of acute territorial ischemia by CT criteria. CXR: 1. Cardiomegaly without acute process. 2. Mild bibasilar densities suggest scarring/atelectasis. ECG Rate (beats per minute): 84 Rhythm: sinus rhythm Supervising Physician Co-Signing Physician Notes I have seen and examined the patient with physician insurance administrative assistant and would like to comment that in my discussions with patient's (Pat [phone]) and medical decision maker because of patient's reported dementia that code status is conditional code DO NOT INTUBATE but allows for CPR and defibrillation SYNCOPE DYSARTHRIA TYPE 2 DIABETES MELLITUS WITH DIABETIC CHRONIC KIDNEY DISEASE STAGE 3 RESIDENTIAL CURRENT OF INSULIN Dementia -this this is a 74 year old Male with syncope at home that lasted seconds and patient's also concerned because he was diaphoretic so she called the EMS and EMS noting initially for dysarthria -On exam by hospitalist team in the ED, there did not appear to be any focal deficits -There is no hemorrhage, mass effect, or evidence of acute territorial ischemia by CT criteria. -patient's family member declines brain MRI to be preformed because of patient's claustrophobia to MRI machine, she allowes for overnight monitoring on telemetry with other non invasive imaging studies and wishes for [facility] neurology consult. will alos get PT/OT evaluations -agree with other assessment and plans as documented by physician insurance administrative assistant including management of diabetes and chronic kidney disease and other medical conditions. (1) Syncope Syncope type: unspecified Qualified Code(s): R55 - Syncope and collapse
--- NOTE | 2019-06-14 13:17 | XRay Report ---
XR chest 1V portable HISTORY: 74 years-old Male syncope/stroke symptoms eval for pathology acute strokelike symptoms with altered mental status COMPARISON: Chest radiograph 11/25/2018 TECHNIQUE: Portable AP view of the chest FINDINGS: Cardiac silhouette is mildly enlarged. Calcified plaque the thoracic aortic arch. Chronic interstitia l coarsening of the lung bases with mild scarring/atelectasis of the lateral left midlung. There is n o pneumothorax, definite pleural effusion or overt pulmonary edema. The inferior left lung base is ou tside the [id number]. Bones appear grossly intact. Degenerative changes of the shoulders and spine . IMPRESSION: 1. Cardiomegaly without acute process. 2. Mild bibasilar densities suggest scarring/atelectasis. ACT 112: Negative or not required by law. The above report was generated using voice recognition software. It may contain grammatical, syntax o r spelling errors. Electronically signed by: Arnav Streeter M.D. 06/14/2019 1:16 PM
--- NOTE | 2019-06-14 14:29 | Electrocardiogram Report ---
Test Reason : Blood Pressure : / mmHG Vent. Rate : 084 BPM Atrial Rate : 084 BPM P-R Int : 164 ms QRS Dur : 090 ms QT Int : 374 ms P-R-T Axes : 067 062 022 degrees QTc Int : 441 ms Normal sinus rhythm Poor R wave progression, consider anterior GA vs. lead placement vs. LVH Abnormal ECG When compared with ECG of 25-NOV-2018 19:18, No significant change was found Confirmed by Jeremiah Bain ([id number]) on 06/14/2019 2:28:32 PM Referred By: REFERRED SELF Confirmed By:Jeremiah Bain
[2019-06-14] MEDS ORDERED: PHARMACIST DISCHARGE MED REC CONSULT PRN (14:34)
[2019-06-14] MEDS ORDERED: ONDANSETRON INJ 2 MG/ML 2 ML VIAL IV PRN (14:34)
[2019-06-14] MEDS ORDERED: ACETAMINOPHEN 325 MG TAB PO PRN (14:34)
[2019-06-14] MEDS ORDERED: GLUCAGON FOR INJ 1 MG VIAL SQ PRN (14:34)
[2019-06-14] MEDS ORDERED: DEXTROSE 50% 50 ML SYRINGE IV PRN (14:34)
[2019-06-14] MEDS ORDERED: GLUCOSE 40% GEL 15 GM TUBE PO PRN (14:34)
[2019-06-14] MEDS ORDERED: CARBOHYDRATES FOR HYPOGLYCEMIA PO PRN (14:34)
[2019-06-14] MEDS ORDERED: GLUCOSE 10 TABS/TUBE PO PRN (14:34)
[2019-06-14] MEDS ORDERED: POLYETHYLENE (MIRALAX) 17 GM PACK PO PRN (14:34)
--- NOTE | 2019-06-14 16:59 | Ultrasound Report ---
US carotid doppler BI CLINICAL HISTORY: 74 years-old Male presenting with syncope. TECHNIQUE: Real-time grayscale and color and spectral Doppler ultrasound imaging of the bilateral car otid arteries was performed. Stenosis measurements were based on NASCET-like criteria (distal lumen d iameter as the denominator for stenosis measurement). COMPARISON: None. FINDINGS: RIGHT: Common carotid artery (CCA): Atherosclerosis at the carotid bulb. Peak systolic velocity (PSV) 59 cm/ s. Internal carotid artery (ICA): Atherosclerosis of the proximal ICA. PSV 88 cm/s. End diastolic veloci ty (EDV) 13 cm/s. ICA/CCA (systolic) ratio: 1.5. External carotid artery (ECA): Patent. PSV 98 cm/s. LEFT: CCA: Atherosclerosis at the carotid bulb. PSV 44 cm/s. ICA: Atherosclerosis of the proximal ICA. PSV 180 cm/s. EDV 25 cm/s. ICA/CCA (systolic) ratio: 4.1. ECA: Atherosclerosis. PSV 272 cm/s. Bilateral antegrade flow within the vertebral arteries. Blood pressure: Brachial: Right: 161/79 mmHg, Left: 150/76 mmHg. Reference ranges: Stenosis measurements are compared to reference velocity parameters by the Society of Radiologists in Ultrasound (SRU) consensus and Sonographic NASCET index (S-NASCET). * SRU Primary parameters: ICA PSV <125 cm/s = normal or less than 50% stenosis; ICA PSV 125-230 cm/s = 50-69% stenosis; ICA PSV >230 cm/s = greater than or equal to 70% stenosis. * SRU Additional parameters: ICA/CCA PSV ratio <2 = normal or less than 50% stenosis; ratio 2-4 = 5 0-69% stenosis; ratio >4 = greater than or equal to 70% stenosis. ICA EDV <40 cm/s = normal or less t [place] 50% stenosis; ICA EDV 40-100 cm/s = 50-69% stenosis; ICA EDV >100 cm/s = greater than or equal to 70% stenosis. * S-NASCET parameters: Deceleration spectral broadening + PSV <125 cm/s = less than 50% stenosis; pa nsystolic spectral broadening + PSV <125 cm/s = 16-49% stenosis; pansystolic spectral broadening + PS V >125 cm/s + EDV <110 cm/s or ICA/CCA PSV ratio 2-4 = 50-69% stenosis; pansystolic spectral broadeni ng + PSV >270 cm/s OR EDV >110 cm/s OR ICA/CCA PSV ratio >4 = 70-79% stenosis; EDV >140 cm/s = 80-99% stenosis. IMPRESSION: 1. Atherosclerosis with 50-69% stenosis of the proximal left ICA. 2. Hemodynamically significant stenosis of the left ECA, which is of doubtful clinical significance. 3. Atherosclerosis without hemodynamically significant stenosis in the right ICA. ACT 112: Negative or not required by law. Electronically signed by: Jabari Snyder M.D. 06/14/2019 4:58 PM
--- NOTE | 2019-06-14 17:12 | Emergency Department Note ---
Entered by Khalida No acting as a scribe for History of Present Illness General Chief complaint: Stroke/CVA Symptoms Stated complaint: stroke alert Source: patient and family Limitations: other (Dementia with memory issues) History of Present Illness Onset (ago): hour(s) Location: head Severity: similar to prior episodes (stroke) Pain Consistency: + other (episode) Quality: + other (stroke) Associated symptoms: + denies other symptoms (lightheaded), + confusion, + diaphoresis, + syncope and + other (pale, difficulty speaking, increased sleep); no chest pain and no headaches The patient is a 74 year old male who presents to the Emergency Room with complaints of an episode of a stroke occurring between 9 AM and 9:30 AM, between 2 hours and 20 minutes ago and an hour and 50 minutes ago. The patients states that this morning he got up and got a shower. She states that she came in when he was done and noticed that he looked a little pale. She reports that she helped him get dried off and then was taking him to go get dressed, but after she got his shirt on and was trying to get his pants on, he suddenly passed out and slumped to the floor. She states that she ended up catching him. There was no head injury. She states that he was then goofy for a few seconds. She states that he seemed confused, but after those few seconds he seemed back to himself mainly. She notes that he did not make any note to her of feeling lightheaded prior to passing out. The patients states that at that time he was profusely sweating and kept opening and closing his eyes. She states that he was still pale and called to the person staying at the house to get his glucometer. She reports that when they checked his sugar it was 195 so she called 911 at that time. The patients states that this happened one time before almost exactly a few years ago. EMS states that on the way in his speech was garbled. They report that at first he seemed that he was having trouble enunciating words, but then he appeared to become more confused on the way in about what he was trying to say. The patients notes that he was speaking fine before getting a shower and while getting dressed. She notes that he has been sleeping a lot over the last few weeks. The patient denies a headache, chest pain, remembering passing out, and remembering feeling lightheaded. The patients notes that he has dementia and typically wouldnt remember those things anyway. Home Medications Home Medications Medication Instructions Recorded Confirmed Type cyanocobalamin (vitamin B-12) 1,000 mcg PO QDL #100 tab 11/22/18 06/14/19 History 1,000 mcg tablet donepezil 10 mg tablet 10 mg PO QDL #30 tab 11/22/18 06/14/19 History fenofibrate micronized 67 mg 67 mg PO QDL cap 11/22/18 06/14/19 History capsule memantine 10 mg tablet 10 mg PO BID tab 11/22/18 06/14/19 History rosuvastatin 40 mg tablet 40 mg PO HS tab 11/22/18 06/14/19 History aspirin 25 mg-dipyridamole 200 mg 1 cap PO BID cap 12/18/18 06/14/19 History capsule,ext.release 12 hr multiphase metformin 1,000 mg tablet 1,000 mg PO DAILY tab 12/18/18 06/14/19 History cholecalciferol (vitamin D3) 2,000 unit PO DAILY 06/14/19 06/14/19 History [Vitamin D3] insulin asp prt-insulin aspart 58 unit SUBCUT BID 06/14/19 06/14/19 History [Novolog Mix 70-30FlexPen U-100] metoprolol tartrate 25 mg PO BID 06/14/19 06/14/19 History semaglutide [Ozempic] 1 mg SUBCUT WK 06/14/19 06/14/19 History Allergies Allergy/AdvReac Type Severity Reaction Status Date / Time clopidogrel Allergy Intermediate Skin Verified 06/14/19 12:37 peeling on hands. Past Med/Surg History Medical History Adhesive capsulitis of shoulder (Acute) CAD (coronary artery disease) (Chronic) CAD (coronary artery disease) of artery bypass graft (Acute) Carotid stenosis (Chronic) Chronic cerebral ischemia (Acute) Chronic rhinitis (Acute) CKD (chronic kidney disease), stage III COPD, moderate (Acute) Dementia (Acute) Diabetes (Acute) Diabetic polyneuropathy associated with type 2 diabetes mellitus (Acute) Diastolic dysfunction (Acute) DM2 (diabetes mellitus, type 2) (Chronic) Dyslipidemia (Acute) History of left heart catheterization (LHC) (Chronic) History of recurrent TIAs HLD (hyperlipidemia) (Chronic) Hypertriglyceridemia (Acute) Hypoxemia (Acute) Mixed Alzheimer's and vascular dementia (Acute) Nocturnal hypoxemia (Acute) NSTEMI (non-ST elevated myocardial infarction) (Chronic) CAROLYNN (obstructive sleep apnea) (Chronic) Severe obstructive sleep apnea (Acute) SIRS (systemic inflammatory response syndrome) Stroke-like symptom Syncope and collapse TIA (transient ischemic attack) (Chronic) TIA (transient ischemic attack) (Acute 06/12/14) Vascular dementia (Chronic) Surgical History H/O carotid endarterectomy (Chronic) H/O shoulder surgery (Chronic) History of cataract surgery History of heart surgery History of hernia repair History of lung biopsy History of tonsillectomy S/P drug eluting coronary stent placement (Chronic) "2012" Family History Mother Myocardial infarction Father Myocardial infarction Diabetes Stroke Social History Preferred Language: Czech Communication Ability: Effective 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 and A total of 10 systems reviewed and were otherwise negative Physical Exam Vital Signs Vital Signs - 24 hr 06/14/19 11:22 06/14/19 11:35 06/14/19 12:01 Temperature 37 C Temperature Source Oral Pulse Rate 81 Pulse Rate [Apical] 75 Pulse Rhythm [Apical] Regular Respiratory Rate 22 18 Respiratory Effort / Characteristics Non-Labored Spontaneous Respiratory Depth Normal Respiratory Pattern Regular Blood Pressure 161/86 H Blood Pressure [Right Arm] 151/76 H Blood Pressure Mean 111 Blood Pressure Mean [Right Arm] 101 Pulse Oximetry 93 93 92 Oxygen Delivery Method Room Air Room Air Room Air Sepsis Recent Fever Within 48 Hours No Sepsis New/Unexplained Change in Mental Status No Sepsis Action Taken by Nursing No Action Required Constitutional: Vital signs reviewed. Eyes: Pupils are equal round reactive to light. Conjunctiva are noninjected. ENT: Pharynx is clear without erythema or exudate. Mucous membranes are moist. Neck supple without meningeal signs. Respiratory: Clear to auscultation bilaterally. Breath sounds are equal bilaterally. Cardiovascular: Regular rate and rhythm. No rubs or gallops. GI: Soft, nondistended and nontender. Bowel sounds are present. Musculoskeletal: No peripheral edema. No lower extremity tenderness. Integumentary: No cyanosis. Neurological: The patient is awake and alert. Cranial nerves II-XII are intact. Motor is 5 out of 5 all extremities. Sensation is intact to light touch all extremities. Very slight dysarthria. No pronator drift. No limb ataxia. Psychiatric: Normal affect. Course Course 1059: Medical command called and I initiated a stroke alert at this time. 1106: I discussed the patient's case with Dr. Nicol Roldan. He said he has had multiple stroke alerts in the past so he is going to review his old records on their system and then evaluate the patient upon arrival via telestroke. 1112: The patient arrived in the ED at this time and was taken directly to CT. 1116: I spoke to Dr. Yumiko Roldan via the telestroke. I updated him and he updated me on what we found in the patient's history. 1117: The patient's was bought into the room at this time to give a detailed history. 1119: The patient was evaluated in room B1. A complete history and physical exam was performed. 1140: I discussed the patient's case with Dr. Nicol Roldan. He does not advise giving TPA at this time and to do a syncopal workup. If there is no alternative explanation, then he might consider more neuro imaging, but not at this time. 1207: I reevaluated the patient and he currently is not having any symptoms. I discussed the patient's test results and treatment plan with him and his . They verbally agree and understand. 1212: I discussed the patient's case with Farnaz Michelle PA-C- [facility] Hospitalist. She will evaluate the patient for further management under Dr. Casas's service. Administered Medications Miscellaneous (Order Awaiting Action) 1 ea N/A QS HARSHA Stop: 07/14/19 15:59 Last Admin: 06/14/19 16:37 Dose: Not Given Documented by: [id number] Discontinued Medications Dipyridamole/Aspirin (Aggrenox 200mg/25mg) 1 cap PO NOW STA Stop: 06/14/19 13:08 Last Admin: 06/14/19 13:58 Dose: 1 cap Documented by: [id number] Metoprolol Tartrate (Lopressor) 12.5 mg PO ONE ONE Stop: 06/14/19 13:08 Last Admin: 06/14/19 13:57 Dose: 12.5 mg Documented by: [id number] Medical Decision Making Differential Diagnosis Differential diagnoses include seizure, CVA, TIA, metabolic derangement, dysrhythmia. Medical Records Attestation: I reviewed the patient's medical records. In December 2016 the patient was seen for staring with dysarthria. It was noted that in December of 2015 he had TPA at another hospital for a stroke. The impression was that he had a TIA verse partial complex seizure. On CTA, is showed a possible sub acute infarct in the nereida verse artifact. He also had an MRA of his neck at that time that was limited due to technique with probable narrowing of the proximal left ICA. Home Medications Current Medication List: was personally reviewed by me Laboratory Data Attestation: I reviewed the patient's lab results. Result diagrams: 06/14/19 11:22 06/14/19 11:22 Lab Results 06/14/19 06/14/19 06/14/19 Range/Units 11:22 11:22 11:22 WBC 7.52 (4.8-10.8) K/uL RBC 4.32 L (4.7-6.1) M/uL Hgb 13.2 L (14.0-18.0) g/dL Hct 39.2 L (42-52) % MCV 90.7 (80-100) fL MCH 30.6 (25-34) pg MCHC 33.7 (32-36) g/dL RDW Std Deviation 47.9 H (36.4-46.3) fL RDW Coeff of Ivone 14.3 (11.5-14.5) % Plt Count 167 (130-400) K/uL MPV 9.7 (7.4-10.4) fL Immature Gran % (Auto) 0.3 % Neut % (Auto) 73.1 % Lymph % (Auto) 16.0 % [place] % (Auto) 7.0 % Eos % (Auto) 3.3 % Baso % (Auto) 0.3 % Immature Gran # (Auto) 0.02 (0.00-0.02) K/uL Neut # (Auto) 5.50 (1.4-6.5) K/uL Lymph # (Auto) 1.20 (1.2-3.4) K/uL [place] # (Auto) 0.53 (0.11-0.59) K/uL Eos # (Auto) 0.25 (0-0.5) K/uL Baso # (Auto) 0.02 (0-0.2) K/uL PT 10.1 (9.0-12.0) Seconds INR 1.0 (0.9-1.1) APTT 23.1 (21.0-31.0) Seconds PTT Ratio 0.9 Sodium 139 (136-145) mmol/L Potassium 4.7 (3.5-5.1) mmol/L Chloride 108 H (98-107) mmol/L Carbon Dioxide 26 (21-32) mmol/L Anion Gap 5.0 (3-11) BUN 14 (7-18) mg/dl Creatinine 1.36 (0.6-1.4) mg/dl Est Cr Clr Drug Dosing 57.4 ml/min Est GFR ( Amer) 58.6 Est GFR (Non-Af Amer) 50.5 BUN/Creatinine Ratio 10.1 (10-20) Glucose 207 H (70-99) mg/dl POC Glucose (70-99) mg/dl Calcium 8.9 (8.5-10.1) mg/dl Magnesium 2.1 (1.8-2.4) mg/dl Total Bilirubin 0.4 (0.2-1) mg/dl AST 13 L (15-37) U/L ALT 19 (12-78) U/L Alkaline Phosphatase 61 (45-117) U/L Troponin I < 0.015 (0-0.045) ng/ml Total Protein 6.9 (6.4-8.2) gm/dl Albumin 3.2 L (3.4-5.0) gm/dl Globulin 3.7 (2.5-4.0) gm/dl Albumin/Globulin Ratio 0.9 (0.9-2) Blood Type Antibody Screen 06/14/19 06/14/19 Range/Units 11:22 11:22 WBC (4.8-10.8) K/uL RBC (4.7-6.1) M/uL Hgb (14.0-18.0) g/dL Hct (42-52) % MCV (80-100) fL MCH (25-34) pg MCHC (32-36) g/dL RDW Std Deviation (36.4-46.3) fL RDW Coeff of Ivone (11.5-14.5) % Plt Count (130-400) K/uL MPV (7.4-10.4) fL Immature Gran % (Auto) % Neut % (Auto) % Lymph % (Auto) % [place] % (Auto) % Eos % (Auto) % Baso % (Auto) % Immature Gran # (Auto) (0.00-0.02) K/uL Neut # (Auto) (1.4-6.5) K/uL Lymph # (Auto) (1.2-3.4) K/uL [place] # (Auto) (0.11-0.59) K/uL Eos # (Auto) (0-0.5) K/uL Baso # (Auto) (0-0.2) K/uL PT (9.0-12.0) Seconds INR (0.9-1.1) APTT (21.0-31.0) Seconds PTT Ratio Sodium (136-145) mmol/L Potassium (3.5-5.1) mmol/L Chloride (98-107) mmol/L Carbon Dioxide (21-32) mmol/L Anion Gap (3-11) BUN (7-18) mg/dl Creatinine (0.6-1.4) mg/dl Est Cr Clr Drug Dosing ml/min Est GFR ( Amer) Est GFR (Non-Af Amer) BUN/Creatinine Ratio (10-20) Glucose (70-99) mg/dl POC Glucose 216 H (70-99) mg/dl Calcium (8.5-10.1) mg/dl Magnesium (1.8-2.4) mg/dl Total Bilirubin (0.2-1) mg/dl AST (15-37) U/L ALT (12-78) U/L Alkaline Phosphatase (45-117) U/L Troponin I (0-0.045) ng/ml Total Protein (6.4-8.2) gm/dl Albumin (3.4-5.0) gm/dl Globulin (2.5-4.0) gm/dl Albumin/Globulin Ratio (0.9-2) Blood Type A Positive Antibody Screen NEGATIVE Imaging Data Radiologist's Impression: Radiology results as stated below per my review and the radiologist's interpretation: CT SCAN OF THE BRAIN WITHOUT IV CONTRAST CLINICAL HISTORY: Strokelike symptoms. Expressive aphasia. COMPARISON STUDY: CT of the brain dated 11/25/2018. TECHNIQUE: Unenhanced axial CT scan of the brain is performed from the vertex to the skull base. A dose lowering technique was utilized adhering to the principles of ALARA. CT DOSE: 614.27 mGy.cm FINDINGS: Brain parenchyma: There are age-related involutional changes noting moderate subcortical and periventricular microangiopathic change. There is no hemorrhage, mass effect, or evidence of acute territorial ischemia by CT criteria. Perez- white matter differentiation is preserved. No extra-axial fluid collection is seen. Ventricles, sulci, cisterns: Prominent secondary to involutional change. Intracranial vasculature: There is atherosclerotic calcification of the cavernous carotid and vertebral arteries. Calvarium: Unremarkable. Sinuses and mastoids: The visualized paranasal sinuses are clear. The mastoid air cells are well pneumatized. Cerumen is noted in the external auditory canals. Orbits: The bony orbits are grossly intact. There are bilateral ocular lens implants. IMPRESSION: There is no hemorrhage, mass effect, or evidence of acute kay torial ischemia by CT criteria. ACT 112: Negative or not required by law. Electronically signed by: Rudolph Valentino M.D. 06/14/2019 11:53 AM XR chest 1V portable HISTORY: 74 years-old Male syncope/stroke symptoms eval for pathology acute strokelike symptoms with altered mental status COMPARISON: Chest radiograph 11/25/2018 TECHNIQUE: Portable AP view of the chest FINDINGS: Cardiac silhouette is mildly enlarged. Calcified plaque the thoracic aortic arch. Chronic interstitial coarsening of the lung bases with mild scarring/atelectasis of the lateral left midlung. There is no pneumothorax, definite pleural effusion or overt pulmonary edema. The inferior left lung base is outside the [id number]. Bones appear grossly intact. Degenerative changes of the shoulders and spine. IMPRESSION: 1. Cardiomegaly without acute process. 2. Mild bibasilar densities suggest scarring/atelectasis. ACT 112: Negative or not required by law. The above report was generated using voice recognition software. It may contain grammatical, syntax or spelling errors. Electronically signed by: Arnav Streeter M.D. 06/14/2019 1:16 PM ECG Data Attestation: I personally reviewed and interpreted this ECG as follows: Indication: + syncope Rate (beats per minute): 84 Rhythm: + normal sinus ECG Intervals/blocks: + Normal QRS ECG ST segments: + ST depression (slight in lead 2); no ST elevation ECG Findings: no PVCs Blood Pressure Blood Pressure Findings: Elevated blood pressure Blood Pressure Disposition: Referred to patients primary care provider [facility] Narrative I did take medical command for this patient for stroke alert. I did call a stroke alert prehospital and spoke to the [place] stroke neurologist regarding the case prior to the patient's arrival. I did evaluate the patient as noted above. He is presenting with a syncopal episode and subsequent dysarthria as noticed by EMS. I was told by EMS that the patient was speaking normally on initial eval but then had garbling of his words. On my exam he has no focal deficits with very slight dysarthria. IV access was established. The patient was placed on a continuous monitoring and evaluation advisor. I did order and personally review the patient's 12-lead EKG as described above. Twelve-lead EKG shows no signs of dysrhythmia. There is some nonspecific ST changes. I did order and personally reviewed the images of the patient's chest x-ray as described above. He has cardiomegaly.. I did order and review the patient's blood work as noted in the electronic medical record. He has mild anemia and hyperglycemia. Otherwise his labs are unremarkable. I did order a CT of the head. I did review the images myself as well as the radiology report as described above. There is no evidence of acute intracranial process. I did discuss the case with the stroke neurologist to evaluated the patient here via telemedicine. We agreed that IV T PA was not indicated. Patient appears to be back at his baseline. He will be hospitalized for further care and evaluation. I did discuss case with the hospitalist and nurse case manager. Impression & Plan Syncope, Stroke-like symptoms, Dysarthria, Hyperglycemia Discharge Plan Visit Data *Final* Discharge Date/Time: 06/14/19 13:40 Chief Complaint: Stroke/CVA Symptoms Stated Complaint: stroke alert ED Provider: Josue Ocampo Discharge Problem: Syncope, Stroke-like symptoms, Dysarthria, Hyperglycemia Patient Disposition: Admitted As Inpatient Discharge Instructions Interventions: ED Discharge Assessment Last Done: 06/14/19 13:40 Discharge Problem: Syncope Qualifiers: Syncope type: unspecified Qualified Code(s): R55 - Syncope and collapse The scribe's documentation has been prepared under my direction and personally reviewed by me in its entirety. I confirm that the note above accurately reflects all work, treatment, procedures, and medical decision making performed by me.
[2019-06-14] MEDS: INSULIN ASPART 100 UNITS/ML 3 ML PEN SC SCH ×2 (17:19→21:05)
[2019-06-14] MEDS: DIPYRIDAMOLE/ASPIRIN CAP PO SCH (20:57)
[2019-06-14] MEDS: METOPROLOL TARTRATE 25 MG TAB PO SCH (20:58)
[2019-06-14] MEDS: MEMANTINE HCL 10 MG TAB PO SCH (20:58)
[2019-06-14] MEDS ORDERED: ENOXAPARIN INJ 30 MG/0.3 ML SYR SQ SCH (21:00)
[2019-06-14] MEDS ORDERED: ROSUVASTATIN CALCIUM 20 MG TAB PO SCH (21:00)
[2019-06-14] MEDS: INSULIN GLARGINE SOLOSTAR 100 UNITS/ML 3 ML PEN SC SCH (21:06)
[2019-06-14] MEDS ORDERED: LORazepam 2 MG/ML VIAL (IM USE) IM STA ×2 (21:55)
[2019-06-15 01:45] LABS: Appearance Urine Cloudy (Clear); Bacteria Urine Automated Negative (Negative); Bilirubin Urine Negative (Negative); Blood Urine Negative (Negative); Color Urine Yellow; Epithelial Cell Urine Auto 0-5 /lpf (0-5); Glucose Urine UA 3+ (Negative); Ketones Urine Negative (Negative); Leukocyte Esterase Urine Negative (Negative); Nitrite Urine Negative (Negative); Protein Urine 1+ (Negative); RBC Urine Automated 0-4 /hpf (0-4); Specific Gravity Urine 1.023 (1.000-1.030); Urobilinogen Urine Negative (Negative); pH Urine 5.5 (4.5-7.5)
[2019-06-15 06:46] LABS: Basophils # (auto) 0.02 K/uL (0-0.2); Basophils % (auto) 0.2 %; Eosinophils # (auto) 0.16 K/uL (0-0.5); Eosinophils % (auto) 1.9 %; Hematocrit (blood only) 39.9 % (42-52); Hemoglobin 13.4 g/dL (14.0-18.0); Immature Granulocytes # (auto) 0.03 K/uL (0.00-0.02); Immature Granulocytes % (auto) 0.4 %; Lymphocytes # (auto) 1.84 K/uL (1.2-3.4); Lymphocytes % (auto) 21.7 %; Mean Corpuscular Hemoglobin 30.8 pg (25-34); Mean Corpuscular Hgb Conc 33.6 g/dL (32-36); Mean Corpuscular Volume 91.7 fL (80-100); Mean Platelet Volume 10.4 fL (7.4-10.4); Monocytes % (auto) 7.1 %; Neutrophils # (auto) 5.81 K/uL (1.4-6.5); Neutrophils % (auto) 68.7 %; Platelet Count 175 K/uL (130-400); RDW Coefficient of Variation 14.4 % (11.5-14.5); RDW Standard Deviation 48.6 fL (36.4-46.3); Red Blood Count 4.35 M/uL (4.7-6.1); White Blood Count 8.46 K/uL (4.8-10.8)
[2019-06-15 07:11] LABS: Estimated Average Glucose 220 mg/dl; Hemoglobin A1C 9.3 % (4.5-5.6)
[2019-06-15 07:23] LABS: BUN Creatinine Ratio 13.5 (10-20); Calcium 9.1 mg/dl (8.5-10.1); Est GFR (African American) 64.2; Est GFR (Non-African American) 55.4; Potassium 4.2 mmol/L (3.5-5.1)
[2019-06-15 07:34] LABS: Thyroid Stimulating Hormone 1.86 uIu/ml (0.300-4.500)
[2019-06-15] MEDS: INSULIN GLARGINE SOLOSTAR 100 UNITS/ML 3 ML PEN SC SCH (08:43)
[2019-06-15] MEDS: INSULIN ASPART 100 UNITS/ML 3 ML PEN SC SCH (08:43)
[2019-06-15] MEDS: METOPROLOL TARTRATE 25 MG TAB PO SCH (08:44)
[2019-06-15] MEDS: DIPYRIDAMOLE/ASPIRIN CAP PO SCH (08:44)
[2019-06-15] MEDS: MEMANTINE HCL 10 MG TAB PO SCH (08:44)
[2019-06-15] MEDS ORDERED: CHOLECALCIFEROL 1,000 UNITS 25 MCG TAB PO SCH (09:00)
[2019-06-15] MEDS ORDERED: LORazepam 0.25 MG/0.5 ML VIAL IV PRN (09:03)
--- NOTE | 2019-06-15 10:57 | Neurology Consultation ---
Date of Consultation June 15, 2019 Assessment & Plan (1) Syncope: Syncopal episode occurring yesterday after getting out of the shower and occurring while his was assisting him with getting dressed. The episode, as described, does not really seem consistent with a seizure. Patient probably experienced an episode of vasovagal syncope. I would not recommend obtaining an EEG at this time. Would consider potentially reducing his dosage of donepezil from 10 mg/day to 5 mg/day. However, it is not really clear if the donepezil contributed to this isolated syncopal episode. Patient can follow-up with Dr. Torres in clinic regarding his dementia management. (2) Stroke-like symptoms: Subtle speech changes following yesterday syncopal episode. I do not really detect a definitive aphasia at this time although his does seem concerned that his speech does remain a bit altered as does his current mental status, at least compared to his baseline. I do think a noncontrast brain MRI would be helpful to exclude a small acute infarct within the dominant cerebral hemisphere. However, I note that he does not have an associated facial droop or hemiparesis. Nonetheless, a small cortical infarct within the dominant hemisphere could result in an isolated partial aphasia without associated motor deficits. May need to premedicate patient with IV lorazepam prior to MRI. If an MRI is not tolerated or refused, I think a follow-up CT of the head completed later today would be reasonable to assess for an evolving infarct, although sensitivity would probably be low. Have patient continue with Aggrenox and Crestor. Continue to monitor blood pressure, avoid aggressive lowering of blood pressure at this time. (3) Dementia: Dementia, chronic progressive issue for which the patient is taking both Namenda and donepezil. As above, consider reducing his dosage of donepezil from 10 mg to 5 mg/day. Donepezil has the potential to induce bradycardia and associated syncope. However, cannot really be determined if his donepezil was responsible for yesterday syncopal episode. Patient will follow-up with Dr. Torres for ongoing management of his dementia. Please contact me if I may be of further assistance. History of Present Illness Reason for Consultation: Syncope Requesting Physician: Farnaz Michelle PA-C Attending Physician: Marv Casas MD History of Present Illness The patient is a 74-year-old male who who has been following with Dr. Torres for dementia, probably mixed type, last seen in neurology clinic December 18, 2018. His dementia has been characterized by progressive decline in cognitive functioning and short-term memory over the past few years. His is been providing 24/7 care as he requires continuous supervision in the context of his advancing dementia. He is prescribed both memantine and donepezil for symptomatic management of his dementia associated cognitive decline. The benefit of these medications has been minimal to modest at best according to his spouse. The patient is an unreliable historian in light of his significant dementia. His past medical history is also notable for stroke and TIA for which she is taking Aggrenox. He presented to the emergency department yesterday after a syncopal episode. The episode occurred yesterday morning after getting out of the shower. His was assisting him while getting dressed, he apparently became very pale and slumped forward with associated loss of consciousness for perhaps only a few seconds. He was diaphoretic at that time as well. No convulsive activity was observed. No tongue bite or incontinence. He was notably more confused upon arousal. She did check his blood sugar at that time which was 195. His speech was a bit garbled as well. The patient spouse indicates that he had a similar episode several years ago. He does not have a known history of seizure disorder. Currently, the patient is sitting up in a bedside chair, he is notably confused and has no recollection of yesterday's events. He denies any headache, weakness, or vision loss but is a very difficult historian. His spouse indicates that his speech seems to be a bit off and wonders if his current level of cognitive functioning could be a "new normal" for him. She is aware of the potential for stepwise decline in some types of dementia. Testing thus far has included a CT of the head and carotid Doppler. He has a history of stage III kidney disease which I think is precluded him from obtaining a CT angiogram. There is also some concern regarding whether or not he would tolerate a brain MRI as he apparently has significant difficulty with an attempt at this test previously. Imaging and testing described in further detail below. Allergies Allergy/AdvReac Type Severity Reaction Status Date / Time clopidogrel Allergy Intermediate Skin Verified 06/14/19 12:37 peeling on hands. Home Medications Home Medications Medication Instructions Recorded Confirmed Type cyanocobalamin (vitamin B-12) 1,000 mcg PO QDL #100 tab 11/22/18 06/14/19 History 1,000 mcg tablet donepezil 10 mg tablet 10 mg PO QDL #30 tab 11/22/18 06/14/19 History fenofibrate micronized 67 mg 67 mg PO QDL cap 11/22/18 06/14/19 History capsule memantine 10 mg tablet 10 mg PO BID tab 11/22/18 06/14/19 History rosuvastatin 40 mg tablet 40 mg PO HS tab 11/22/18 06/14/19 History aspirin 25 mg-dipyridamole 200 mg 1 cap PO BID cap 12/18/18 06/14/19 History capsule,ext.release 12 hr multiphase metformin 1,000 mg tablet 1,000 mg PO DAILY tab 12/18/18 06/14/19 History cholecalciferol (vitamin D3) 2,000 unit PO DAILY 06/14/19 06/14/19 History [Vitamin D3] insulin asp prt-insulin aspart 58 unit SUBCUT BID 06/14/19 06/14/19 History [Novolog Mix 70-30FlexPen U-100] metoprolol tartrate 25 mg PO BID 06/14/19 06/14/19 History semaglutide [Ozempic] 1 mg SUBCUT WK 06/14/19 06/14/19 History Patient History Medical History Adhesive capsulitis of shoulder (Acute) CAD (coronary artery disease) (Chronic) CAD (coronary artery disease) of artery bypass graft (Acute) Carotid stenosis (Chronic) Chronic cerebral ischemia (Acute) Chronic rhinitis (Acute) CKD (chronic kidney disease), stage III COPD, moderate (Acute) Dementia (Acute) Diabetes (Acute) Diabetic polyneuropathy associated with type 2 diabetes mellitus (Acute) Diastolic dysfunction (Acute) DM2 (diabetes mellitus, type 2) (Chronic) Dyslipidemia (Acute) History of left heart catheterization (LHC) (Chronic) History of recurrent TIAs HLD (hyperlipidemia) (Chronic) Hypertriglyceridemia (Acute) Hypoxemia (Acute) Mixed Alzheimer's and vascular dementia (Acute) Nocturnal hypoxemia (Acute) NSTEMI (non-ST elevated myocardial infarction) (Chronic) CAROLYNN (obstructive sleep apnea) (Chronic) Severe obstructive sleep apnea (Acute) SIRS (systemic inflammatory response syndrome) Stroke-like symptom Syncope and collapse TIA (transient ischemic attack) (Chronic) TIA (transient ischemic attack) (Acute 06/12/14) Vascular dementia (Chronic) Surgical History H/O carotid endarterectomy (Chronic) H/O shoulder surgery (Chronic) History of cataract surgery History of heart surgery History of hernia repair History of lung biopsy History of tonsillectomy S/P drug eluting coronary stent placement (Chronic) "RCA 2012" Family History Mother Myocardial infarction Father Myocardial infarction Diabetes Stroke Social History Preferred Language: Turkmen Communication Ability: Impaired Stamp Collector Required: No Beliefs That Will Affect Care: None marital status: Current Living Situation: Spouse current occupational status: retired Other Information That Helps Us Care for You: No Feels Safe at Home: Yes Safety Concerns: Feels Safe At This Time Smoking Status: Former smoker Tobacco Type: cigarettes ; Do You Dip or Chew Tobacco: No ; Smoking End Date: 1993 ; Second Hand Exposure: No ; Tobacco Cessation Education Requested by Patient: No Hx Alcohol Use: Yes Hx Substance Use: No Review of Systems Review of Systems: Unobtainable due to cognitive status Physical Exam Physical Exam: The patient is a well-developed, well-nourished elderly male. He is alert and oriented to person only. Recent and remote memory impaired. Attention and concentration impaired. Patient displays mild difficulty with object naming although this difficulty seems intermittent. He was able to repeat phrases. Language comprehension intact for simple commands. Patient displays limited fund of knowledge but normal comprehension of vocabulary. Visual salmon full to confrontation. Visual acuity normal. Pupils equal round reactive to light and accommodation. Eye movements normal. Facial sensation intact. There is no facial droop or weakness. Hearing intact. Palate elevates to midline. Shoulder shrug intact. Tongue protrudes to midline. Sensation intact all modalities in all 4 limbs. Deep tendon reflexes intact and symmetrical for the arms and legs, diminished at the Achilles tendons bilater ally, plantar responses silent bilaterally. There is no dysdiadochokinesia or dysmetria [id number] or [id number] bilaterally. Ophthalmoscopic examination reveals normal-appearing optic disks and posterior segments. No papilledema or hemorrhages. Carotid pulses normal bilaterally, no bruits to auscultation. Gait and station not tested due to safety concerns. Patient exhibits normal muscle strength and tone for all 4 limbs. No atrophy. No abnormal movements observed. Results & Data Vital Signs (Past 12 Hours) Vital Signs Temp Pulse Pulse Resp BP BP Pulse Ox 06/15/19 07:00 36.6 C 89 20 160/75 H 92 06/15/19 03:57 37.1 C 71 18 129/66 91 06/15/19 00:00 90 06/14/19 23:16 36.8 C 72 17 129/56 L 91 Laboratory Results WBC 8.46, hemoglobin 13.4, hematocrit 39.9, platelet count 175, sodium 139, potassium 4.2, BUN 17, creatinine 1.26, glucose 224, hemoglobin A1c 9.3, calcium 9.1, triglycerides 415, cholesterol 114, HDL 39, TSH 1.[address] of the head completed yesterday was negative for hemorrhage or acute process. Per my review, there is generalized atrophy with an element of ventriculomegaly/hydrocephalus ex vacuo, and moderate subcortical periventricular microangiopathic disease. I reviewed the images as well as the radiologist interpretation of this test. A carotid ultrasound reveals a 50 to 69% stenosis within the proximal left internal carotid artery as well as a clinically insignificant stenosis of the left external carotid artery. Atherosclerotic changes are noted within the right ICA, no significant stenosis. An electrocardiogram completed yesterday revealed a normal sinus rhythm, 84 bpm. Coding Level of Care Code 40213 Initial Inpt Care Lvl 3 Diagnoses Syncope R55 Syncope type: unspecified Stroke-like symptoms R29.90 Dementia F03.90 (1) Syncope Syncope type: unspecified Qualified Code(s): R55 - Syncope and collapse
[2019-06-15] MEDS ORDERED: CYANOCOBALAMIN 500 MCG TABLET (VITAMIN B-12) PO SCH (11:30)
[2019-06-15] MEDS ORDERED: DONEPEZIL HCL 10 MG TAB PO SCH (11:30)
[2019-06-15] MEDS ORDERED: STROKE PATIENT DISCHARGE STA (12:01)
--- NOTE | 2019-06-15 12:08 | Hospitalist Progress Note ---
Date of Service June 15, 2019 Assessment & Plan (1) Syncope: (2) Dysarthria: Pt is 74 y/o M with PMH CAD S/P stent, HTN, dyslipidemia, TIA's, CAROLYNN and nocturnal hypoxemia, dementia, DM II, CKD III presented to ER with c/o syncopal episode this morning after getting out of shower. BSG after syncopal episode was 195. EMS transported pt to ER and it was reported they noticed some garbled speech In ER pt afebrile, P: 81, R: 22, BP: 161/86, 93% on RA. No leukocytosis. H/H: 13.2/39, glucose: 207. EKG sinus rhythm. no speech impediments or neurological motor deficits noted when assessed by hospitalist team admission Head CT:There are age-related involutional changes noting moderate subcortical and periventricular microangiopathic change. There is no hemorrhage, mass effect, or evidence of acute territorial ischemia by CT criteria. Perez- white matter differentiation is preserved. No extra-axial fluid collection is seen. Carotid Ultrasound 06/14/2019 "IMPRESSION: 1. Atherosclerosis with 50-69% stenosis of the proximal left ICA. 2. Hemodynamically significant stenosis of the left ECA, which is of doubtful clinical significance. 3. Atherosclerosis without hemodynamically significant stenosis in the right ICA." no acute telemetry events noted between 06/14/2019 to 06/15/[address] Estrada 06/15/2019: consider potentially reducing his dosage of donepezil from 10 mg/day to 5 mg/day. However, it is not really clear if the donepezil contributed to this isolated syncopal episode. Dr. Estrada also commented on "Subtle speech changes following yesterday syncopal episode. I do not really detect a definitive aphasia at this time although his does seem concerned that his speech does remain a bit altered as does his current mental status, at least compared to his baseline. I do think a noncontrast brain MRI would be helpful to exclude a small acute infarct within the dominant cerebral hemisphere. However, I note that he does not have an associated facial droop or hemiparesis. Nonetheless, a small cortical infarct within the dominant hemisphere could result in an isolated partial aphasia without associated motor deficits. May need to premedicate patient with IV lorazepam prior to MRI. If an MRI is not tolerated or refused, I think a follow-up CT of the head completed later today would be reasonable to assess for an evolving infarct, although sensitivity would probably be low." no further head imaging testing as per patient's family member and requesting hospital discharge to home to prevent patient from agitation from dementia hospitalist prescribe on discharge reduced donepezil to 5 mg/daily for now discharge to home under care of his Patient has upcoming appointment with [facility] Other appointment: 06/18/2019 9:00 AM Provider Jabari Rodriguez MD Department Family Practice [facility] (3) TIA (transient ischemic attack): H/O prior TIA's -Continue Aggrenox (4) DM2 (diabetes mellitus, type 2): TYPE 2 DIABETES MELLITUS WITH DIABETIC CHRONIC KIDNEY DISEASE STAGE 3 NUTRITION PARTNER CURRENT OF INSULIN A1c: 8.0 on 11/2018 -resume home dose diabetes medications on dischrge (5) CAD (coronary artery disease): S/P Stent No CP or SOB currently or recently reported -Continue metoprolol, rosuvastatin, Aggrenox (6) HLD (hyperlipidemia): -Continue rosuvastatin, fenofibrate (7) Dementia: -Continue memantine -discharge on reduced dosing of donepezil (8) CAROLYNN (obstructive sleep apnea): History CAROLYNN and nocturnal hypoxemia. Previously on CPAP and oxygen HS however pt intolerant to CPAP and no longer using CPAP or oxygen (9) CKD (chronic kidney disease), stage III: renla function stable Discharge Diagnosis SYNCOPE DYSARTHRIA (resolved) TYPE 2 DIABETES MELLITUS WITH DIABETIC CHRONIC KIDNEY DISEASE STAGE 3 NUTRITION PARTNER CURRENT OF INSULIN Dementia Subjective No focal deficits on exam. patient cooperative. moves all extremities. denies a cute pain. breathing comfortably on room air. no nausea. no vomiting. no dizziness. no headache. speech sounds clear. no problems with eating the food Review of Systems Review of Systems: All systems reviewed & are unremarkable except as noted in HPI & below Physical Exam Constitutional: cooperative and comfortable Eyes: PERRL, conjunctivae normal, anicteric sclerae EOM intact bilaterally ENMT: external ear and nose normal, oropharynx normal Neck: trachea midline, no thyromegaly Cardiovascular: Rate/Rhythm: regular rate and regular rhythm Gastrointestinal (Abdomen): normal bowel sounds, soft, nontender, no hepatosplenomegaly Musculoskeletal: Head/Neck/Chest: normocephalic and head atraumatic Neurologic: PERRL, EOMI, accommodation nl, no face palsy, no dysarthria CN's II-XI intact bilaterally Psychiatric: A+Ox3, euthymic affect Results & Data ([facility] [place]) Vital Signs (Past 12 Hours) Vital Signs Temp Pulse Pulse Pulse Resp BP BP 06/15/19 11:52 36.6 C 16 L 67 81 20 126/72 129/66 06/15/19 10:50 36.6 C 67 20 126/72 06/15/19 07:00 36.6 C 89 20 160/75 H 06/15/19 03:57 37.1 C 71 18 129/66 Pulse Ox 06/15/19 11:52 93 06/15/19 10:50 93 06/15/19 07:00 92 06/15/19 03:57 91 (1) Syncope Syncope type: unspecified Qualified Code(s): R55 - Syncope and collapse
--- NOTE | 2019-06-15 12:15 | Discharge Summary ---
Date of Service June 15, 2019 Admission HPI Per Admitting Provider Pt is 74 y/o M with PMH CAD S/P stent, HTN, dyslipidemia, TIA's, CAROLYNN and nocturnal hypoxemia, dementia, DM II, CKD III presented to ER with c/o syncope. History obtained from pt's secondary to pt's cognitive status. reports pt normal self this morning and got a shower. Reports was in shower for approx 20 minutes and got out and sat on bed. was attempting to dress pt when he had syncopal episode and was able to help guide pt to floor. Denies pt hitting head. Reports pt clammy after episode and otherwise seemed back to his baseline shortly after. Pt did not eat or drink or take his medications yet today. took BSG after syncopal episode and was 195. EMS transported pt to ER and it was reported they noticed some garbled speech. Upon ER arrival no speech changes noted. Currently pt denies any complaint. reports pt at baseline mental status currently. reports pt unsteady on his feet and she is currently getting him a walker. Pt chronic urinary incontinence, no noted hematuria. Denies any known fever/chills, N/V/D/C, cough, rashes, rhinorrhea, choking, extremity edema. Pt denies any current, IRWIN, dizziness, vision changes, neck pain, CP, SOB. Admission Exam Per Admitting Provider General: no distress, obese Head: normocephalic, atraumatic Eyes: PERRL, EOM's intact, conjunctiva non-injected, anicteric ENT: normal inspection external ears, nose, mucous membranes moist Neck: supple, trachea midline, non-tender Lungs: clear, no respiratory distress, no wheezing/rhonchi/rales CV: RRR, no pretibial edema Abd: normal BS, soft, non-tender Ext: no cyanosis, no calf tenderness Neuro: A&O x 3, no focal deficits noted, face is strong and symmetric, Hearing grossly intact, Soft palate elevates symmetrically, no dysarthria, shoulder shrug intact, Tongue is midline, normal movement, no fasciculations Strength upper extremities 5/5 bilaterally, strength lower extremities 4/5. 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 Dementia Discharge Exam Constitutional cooperative and comfortable Eyes PERRL, conjunctivae normal, anicteric sclerae EOM intact bilaterally ENMT external ear and nose normal, oropharynx normal Neck trachea midline, no thyromegaly Cardiovascular Rate/Rhythm: regular rate and regular rhythm Gastrointestinal (Abdomen) normal bowel sounds, soft, nontender, no hepatosplenomegaly Musculoskeletal Head/Neck/Chest: normocephalic and head atraumatic Neurologic PERRL, EOMI, accommodation nl, no face palsy, no dysarthria CN's II-XI intact bilaterally Psychiatric A+Ox3, euthymic affect Discharge Data Allergies Allergy/AdvReac Type Severity Reaction Status Date / Time clopidogrel Allergy Intermediate Skin Verified 06/14/19 12:37 peeling on hands. Consultations 06/14/19 12:14 ED Decision to Admit Stat 06/14/19 14:34 Consult Case Management - Discharge Planning Routine Consult Neurology Routine Ordered Studies 06/14/19 11:04 CT head/brain wo con Stat 06/14/19 15:14 US carotid doppler BI Routine Hospital Course (1) Syncope: (2) Dysarthria: Pt is 74 y/o M with PMH CAD S/P stent, HTN, dyslipidemia, TIA's, CAROLYNN and nocturnal hypoxemia, dementia, DM II, CKD III presented to ER with c/o syncopal episode this morning after getting out of shower. BSG after syncopal episode was 195. EMS transported pt to ER and it was reported they noticed some garbled speech In ER pt afebrile, P: 81, R: 22, BP: 161/86, 93% on RA. No leukocytosis. H/H: 13.2/39, glucose: 207. EKG sinus rhythm. no speech impediments or neurological motor deficits noted when assessed by hospitalist team admission Head CT:There are age-related involutional changes noting moderate subcortical and periventricular microangiopathic change. There is no hemorrhage, mass effect, or evidence of acute territorial ischemia by CT criteria. Perez- white matter differentiation is preserved. No extra-axial fluid collection is seen. Carotid Ultrasound 06/14/2019 "IMPRESSION: 1. Atherosclerosis with 50-69% stenosis of the proximal left ICA. 2. Hemodynamically significant stenosis of the left ECA, which is of doubtful clinical significance. 3. Atherosclerosis without hemodynamically significant stenosis in the right ICA." no acute telemetry events noted between 06/14/2019 to 06/15/[address] Estrada 06/15/2019: consider potentially reducing his dosage of donepezil from 10 mg/day to 5 mg/day. However, it is not really clear if the donepezil contributed to this isolated syncopal episode. Dr. Estrada also commented on "Subtle speech changes following yesterday syncopal episode. I do not really detect a definitive aphasia at this time although his does seem concerned that his speech does remain a bit altered as does his current mental status, at least compared to his baseline. I do think a noncontrast brain MRI would be helpful to exclude a small acute infarct within the dominant cerebral hemisphere. However, I note that he does not have an associated facial droop or hemiparesis. Nonetheless, a small cortical infarct within the dominant hemisphere could result in an isolated partial aphasia without associated motor deficits. May need to premedicate patient with IV lorazepam prior to MRI. If an MRI is not tolerated or refused, I think a follow-up CT of the head completed later today would be reasonable to assess for an evolving infarct, although sensitivity would probably be low." no further head imaging testing as per patient's family member and requesting hospital discharge to home to prevent patient from agitation from dementia hospitalist prescribe on discharge reduced donepezil to 5 mg/daily for now discharge to home under care of his Patient has upcoming appointment with [facility] Other appointment: 06/18/2019 9:00 AM Provider Jabari Rodriguez MD Department Family Practice [facility] (3) TIA (transient ischemic attack): H/O prior TIA's -Continue Aggrenox (4) DM2 (diabetes mellitus, type 2): 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 Dementia Total Time Total Time Spent Total Time Spent (In Minutes): 40 minutes Total Time Includes: Examination of the Patient, Discharge Planning, Medication Reconciliation and Communication With Other Providers Discharge Plan Discharge Items Patient Disposition: Home - Self-Care Reason For Visit: SYNCOPE Discharge Diagnosis: SYNCOPE DYSARTHRIA TYPE 2 DIABETES MELLITUS WITH DIABETIC CHRONIC KIDNEY DISEASE STAGE 3 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 There is no hemorrhage, mass effect, or evidence of acute territorial ischemia by CT criteria. Perez- white matter differentiation is preserved. No extra-axial fluid collection is seen. Carotid Ultrasound 06/14/2019 "IMPRESSION: 1. Atherosclerosis with 50-69% stenosis of the proximal left ICA. 2. Hemodynamically significant stenosis of the left ECA, which is of doubtful clinical significance. 3. Atherosclerosis without hemodynamically significant stenosis in the right ICA." no acute telemetry events noted between 06/14/2019 to 06/15/[address] Estrada 06/15/2019: consider potentially reducing his dosage of donepezil from 10 mg/day to 5 mg/day. However, it is not really clear if the donepezil contributed to this isolated syncopal episode. Dr. Estrada also commented on "Subtle speech changes following yesterday syncopal episode. I do not really detect a definitive aphasia at this time although his does seem concerned that his speech does remain a bit altered as does his current mental status, at least compared to his baseline. I do think a noncontrast brain MRI would be helpful to exclude a small acute infarct within the dominant cerebral hemisphere. However, I note that he does not have an associated facial droop or hemiparesis. Nonetheless, a small cortical infarct within the dominant hemisphere could result in an isolated partial aphasia without associated motor deficits. May need to premedicate patient with IV lorazepam prior to MRI. If an MRI is not tolerated or refused, I think a follow-up CT of the head completed later today would be reasonable to assess for an evolving infarct, although sensitivity would probably be low." no further head imaging testing as per patient's family member and requesting hospital discharge to home to prevent patient from agitation from dementia hospitalist prescribe on discharge reduced donepezil to 5 mg/daily for now discharge to home under care of his Patient has upcoming appointment with [facility] Other appointment: 06/18/2019 9:00 AM Provider Jabari Rodriguez MD Department Family Practice [facility] [employer] Provider Instructions: Risk Factors for Stroke: You can reduce your chances of stroke by working with your medical provider to adopt a healthy lifestyle. Some specific ways to lower your chance of stroke are: * If you are a smoker, now is the time to stop smoking cigarettes * If you are diabetic, improve the control of your blood sugars * Avoid excessive amounts of alcohol * Control high blood pressure * Lose weight if you are overweight * Be sure to lead an active lifestyle * Eat a healthy diet low in salt, cholesterol and fat You should know about other risk factors for stroke that you are unable to control. These include: * Age 55 years or older * Male gender * Certain racial groups: , or / * Family History of Stroke, Mini stroke or Heart Attack * Sickle Cell Disease Follow Up: It is important for you to keep your follow up appointments with your medical provider. Who to Call and When: Medical Emergencies: Call 911 immediately if you experience any of the following warning signs and symptoms of Stroke: * Sudden numbness or weakness of the face, arm or leg, especially on one side of the body * Sudden confusion, trouble speaking or understanding * Sudden trouble seeing in one or both eyes * Sudden trouble walking, dizziness, loss of balance or coordination * Sudden severe headache with no cause Do not delay calling 911 if you experience any warning signs or symptoms of a stroke. Delay in seeking medical attention may affect what treatments can be given to you. . Pending Studies at Discharge: No Stand-Alone Forms: My [employer] [facility] to Remember, Smoking Cessation Medications and DC Order Prescriptions: New donepezil 5 mg tablet 5 mg PO DAILY 30 Days Qty: 30 RF: 0 Continued memantine 10 mg tablet 10 mg PO BID RF: 0 rosuvastatin 40 mg tablet 40 mg PO HS RF: 0 fenofibrate micronized 67 mg capsule 67 mg PO QDL RF: 0 cyanocobalamin (vitamin B-12) 1,000 mcg tablet 1,000 mcg PO QDL Qty: 100 RF: 0 metformin 1,000 mg tablet 1,000 mg PO DAILY RF: 0 aspirin-dipyridamole [Aggrenox] 25-200 mg capsule, ER multiphase 12 hr 1 cap PO BID RF: 0 metoprolol tartrate 50 mg Tablet 25 mg PO BID RF: 0 cholecalciferol (vitamin D3) [Vitamin D3] 25 mcg (1,000 unit) Capsule 2,000 unit PO DAILY RF: 0 insulin asp prt-insulin aspart [Novolog Mix 70-30FlexPen U-100] 100 unit/mL (70-30) Insulin Pen 58 unit SUBCUT BID RF: 0 Ozempic 1 mg/dose (2 mg/1.5 mL) Pen Injector 1 mg SUBCUT WK RF: 0 Discontinued donepezil 10 mg tablet 10 mg PO QDL Qty: 30 RF: 0 Discharge Orders: Discharge Order (Routine); Ordered 06/15/19 Ordered By: Marv Heath/Other Patient Handouts: Diabetes Alf Complications, Diabetes Resources, Diabetes Healthy Meals, Understanding Carbohydrates, Diabetes Exercise Benefits, Diabetes Manage A1C Test Admission Data Admit Date/Time: 06/14/19 12:28 Attending Provider: Marv Casas Admit Provider: Marv Casas Primary Care Provider: Jabari Rodriguez Other Providers: Marv Casas ; Ford Estrada Other Interventions: Discharge Summary Assessment (RN) Last Done: 06/15/19 11:52
== END 2019-06-15 12:30 | disposition home or self-care (01) | DRG 312 ==
LOC: ED 11:11 → 2N 12:28

== ENCOUNTER 2020-10-18 07:20 | Inpatient (IN) ==
[2020-10-18] MEDS ORDERED: LORazepam 0.5 MG/1 ML VIAL IV STA (07:55)
[2020-10-18] MEDS ORDERED: ACETAMINOPHEN 65 ML IV ONE (07:55)
[2020-10-18 08:07] LABS: Basophils # (auto) 0.02 K/uL (0-0.2); Basophils % (auto) 0.2 %; Eosinophils # (auto) 0.23 K/uL (0-0.5); Eosinophils % (auto) 2.7 %; Hematocrit (blood only) 39.3 % (42-52); Hemoglobin 13.3 g/dL (14.0-18.0); Immature Granulocytes # (auto) 0.02 K/uL (0.00-0.02); Immature Granulocytes % (auto) 0.2 %; Lymphocytes # (auto) 1.71 K/uL (1.2-3.4); Lymphocytes % (auto) 19.8 %; Mean Corpuscular Hemoglobin 30.4 pg (25-34); Mean Corpuscular Hgb Conc 33.8 g/dL (32-36); Mean Corpuscular Volume 89.9 fL (80-100); Mean Platelet Volume 10.4 fL (7.4-10.4); Monocytes # (auto) 0.83 K/uL (0.11-0.59); Monocytes % (auto) 9.6 %; Neutrophils # (auto) 5.81 K/uL (1.4-6.5); Neutrophils % (auto) 67.5 %; Nucleated RBC # (auto) 0.03 K/uL (0-0); Nucleated RBC % (auto) 0.4 %; Platelet Count 205 K/uL (130-400); RDW Coefficient of Variation 13.9 % (11.5-14.5); RDW Standard Deviation 45.7 fL (36.4-46.3); Red Blood Count 4.37 M/uL (4.7-6.1); White Blood Count 8.62 K/uL (4.8-10.8)
--- NOTE | 2020-10-18 08:19 | Emergency Department Note ---
History of Present Illness General Chief complaint: Illness Stated complaint: AMS, FEVER Time Seen by Provider: 10/18/20 07:46 Source: family Limitations: altered mental status History of Present Illness Provider complaint: Altered mental status Onset (ago): day(s) 2 Location: head Pain Consistency: + constant Relieved By: + none Associated symptoms: + confusion and + fever/chills; no nausea/vomiting This is a 75-year-old male with a history of Alzheimer's dementia presenting with altered mental status. He is brought in today by his and daughter. They state that over the past 2 days he has been increasingly confused. He is less verbal than he usually is. When he eats breakfast he gets it all over himself. He has been incontinent of urine although this is not a new symptom for him. He also fell last night out of bed. They did not see this happen but they saw him on the ground next to his bed. They do not think he hit his head because he seemed to have slid down the bed after being caught up in the sheet. The floors are hardwood. They also did not hear a thump to indicate a hard fall. He did have a fever today and has had a cough for the past 2 days. He has had both shots for his COVID-19 vaccine. The whole household is vaccinated and no one else has any symptoms. Further history is unobtainable due to his altered mental status. Home Medications Medication Instructions Recorded Confirmed Type cyanocobalamin (vitamin B-12) 1,000 mcg PO QDD #100 tab 11/22/18 10/18/20 History 1,000 mcg tablet rosuvastatin 40 mg tablet 40 mg PO HS tab 11/22/18 10/18/20 History metformin 1,000 mg tablet 1,000 mg PO QAM tab 12/18/18 10/18/20 History Ozempic 1 mg SUBCUT WK 06/14/19 10/18/20 History insulin asp prt-insulin aspart 58 unit SUBCUT BIDM 06/14/19 10/18/20 History [Novolog Mix 70-30FlexPen U-100] metoprolol tartrate 25 mg PO BID 06/14/19 10/18/20 History aspirin-dipyridamole [Aggrenox] 1 cap PO BIDM 10/18/20 10/18/20 History cholecalciferol (vitamin D3) 25 mcg PO DAILY 10/18/20 10/18/20 History fenofibrate nanocrystallized 48 mg PO DAILY 10/18/20 10/18/20 History insulin aspart U-100 [Novolog 0 unit SUBCUT UD 10/18/20 10/18/20 History Flexpen U-100 Insulin] trazodone 100 mg PO QDD 10/18/20 10/18/20 History Allergies Allergy/AdvReac Type Severity Reaction Status Date / Time clopidogrel Allergy Intermediate Skin Verified 10/18/20 09:02 peeling on hands. Past Med/Surg History Medical History Adhesive capsulitis of shoulder CAD (coronary artery disease) 04/2013 - NSTEMI s/p NOHEMY to mid RCA Carotid stenosis Chronic cerebral ischemia Chronic rhinitis CKD (chronic kidney disease), stage III COPD, moderate Dementia Diabetic polyneuropathy associated with type 2 diabetes mellitus Diastolic dysfunction DM2 (diabetes mellitus, type 2) Dyslipidemia History of left heart catheterization (LHC) History of recurrent TIAs HLD (hyperlipidemia) Hypertriglyceridemia Hypoxemia Mixed Alzheimer's and vascular dementia Nocturnal hypoxemia NSTEMI (non-ST elevated myocardial infarction) CAROLYNN (obstructive sleep apnea) TIA (transient ischemic attack) Vascular dementia Surgical History H/O carotid endarterectomy H/O shoulder surgery History of cataract surgery History of heart surgery History of hernia repair History of lung biopsy History of tonsillectomy S/P drug eluting coronary stent placement "2012" Family History Mother Myocardial infarction Father Myocardial infarction Diabetes Stroke Social History Smoking Status: Former smoker Tobacco Type: Cigarettes Second Hand Exposure: No; Hx Alcohol Use: Yes Hx Substance Use: No Preferred Language: Senegalese Communication Ability: Impaired 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 Unobtainable due to cognitive status Physical Exam Vital Signs Vital Signs - 24 hr 10/18/20 07:14 10/18/20 07:28 10/18/20 07:30 Temperature 38.5 C H Temperature Source Rectal Pulse Rate 86 84 83 Pulse Rate from SpO2 Sensor 84 85 Pulse Rhythm Regular Pulse Strength Normal Respiratory Rate 16 12 14 Respiratory Effort / Characteristics Non-Labored Respiratory Depth Normal Respiratory Pattern Regular Blood Pressure 147/58 H 147/58 H 146/59 H Blood Pressure Mean 87 87 88 Blood Pressure Position Lying Pulse Oximetry 89 L 93 90 Oxygen Delivery Method Room Air Room Air Room Air Sepsis Recent Fever Within 48 Hours Yes Sepsis New/Unexplained Change in Mental Status Yes Sepsis Action Taken by Nursing Physician Notified 10/18/20 07:55 10/18/20 08:00 10/18/20 08:30 Temperature Temperature Source Pulse Rate 100 H 90 Pulse Rate from SpO2 Sensor Pulse Rhythm Pulse Strength Respiratory Rate 19 15 Respiratory Effort / Characteristics Respiratory Depth Respiratory Pattern Blood Pressure 158/99 H 168/118 H Blood Pressure Mean 118 134 Blood Pressure Position Pulse Oximetry 89 L Oxygen Delivery Method Room Air Room Air Room Air Sepsis Recent Fever Within 48 Hours Sepsis New/Unexplained Change in Mental Status Sepsis Action Taken by Nursing 10/18/20 09:31 10/18/20 10:10 10/18/20 10:30 Temperature 38.1 C H Temperature Source Pulse Rate 85 84 76 Pulse Rate from SpO2 Sensor 85 83 75 Pulse Rhythm Pulse Strength Respiratory Rate 14 12 Respiratory Effort / Characteristics Respiratory Depth Respiratory Pattern Blood Pressure 138/60 117/41 L Blood Pressure Mean 86 66 Blood Pressure Position Pulse Oximetry 93 96 93 Oxygen Delivery Method Room Air Sepsis Recent Fever Within 48 Hours Sepsis New/Unexplained Change in Mental Status Sepsis Action Taken by Nursing 10/18/20 11:00 10/18/20 11:30 10/18/20 12:00 Temperature Temperature Source Pulse Rate 77 79 83 Pulse Rate from SpO2 Sensor 76 79 83 Pulse Rhythm Pulse Strength Respiratory Rate 15 14 Respiratory Effort / Characteristics Respiratory Depth Respiratory Pattern Blood Pressure 129/59 L 136/54 L 150/78 H Blood Pressure Mean 82 81 102 Blood Pressure Position Pulse Oximetry 95 96 96 Oxygen Delivery Method Sepsis Recent Fever Within 48 Hours Sepsis New/Unexplained Change in Mental Status Sepsis Action Taken by Nursing 10/18/20 12:31 Temperature Temperature Source Pulse Rate 98 H Pulse Rate from SpO2 Sensor Pulse Rhythm Pulse Strength Respiratory Rate Respiratory Effort / Characteristics Respiratory Depth Respiratory Pattern Blood Pressure 119/91 Blood Pressure Mean 100 Blood Pressure Position Pulse Oximetry Oxygen Delivery Method Sepsis Recent Fever Within 48 Hours Sepsis New/Unexplained Change in Mental Status Sepsis Action Taken by Nursing The physical exam is limited due to the patient's condition. Constitutional: Vital signs reviewed. Eyes: Pupils are equal round reactive to light. Conjunctiva are noninjected. HENT: Normocephalic atraumatic. Spontaneously moves his head around without any obvious discomfort. Respiratory: Clear to auscultation bilaterally. Breath sounds are equal bilaterally. Cardiovascular: Regular rate and rhythm. No murmurs, rubs or gallops. GI: Soft, nondistended and nontender. Bowel sounds are present. Musculoskeletal: No peripheral edema. Integumentary: No cyanosis. Neurological: The patient is awake and alert. Does not answer questions. Moves all extremities. Psychiatric: Unable to assess. Course Administered Medications Discontinued Medications Lorazepam (Ativan) 0.5 mg in 1 mls @ 1 mls/min IV NOW STA Stop: 10/18/20 07:56 Last Admin: 10/18/20 08:05 Dose: 1 mls/min Documented by: [id number] Acetaminophen (Ofirmev) 65 mls @ 200 mls/hr IV NOW ONE; Protocol Stop: 10/18/20 08:14 Last Infusion: 10/18/20 09:35 Dose: 0 mls/hr Documented by: [id number] Admin: 10/18/20 09:17 Dose: 200 mls/hr Documented by: [id number] Medical Decision Making Differential Diagnosis Sepsis, bacteremia, encephalopathy, intracranial hemorrhage, CVA, metabolic derangement, UTI, pneumonia Medical Records Attestation: I reviewed the patient's medical records. I did perform a limited focused review of portions of the patient's old chart on the electronic medical record. The patient was seen here in June 2019 for syncope. Home Medications Current Medication List: was personally reviewed by me Laboratory Data Attestation: I reviewed the patient's lab results. Result diagrams: 10/18/20 06:50 10/18/20 06:50 Lab Results 10/18/20 10/18/20 10/18/20 Range/Units 06:50 06:50 06:50 WBC 8.62 (4.8-10.8) K/uL RBC 4.37 L (4.7-6.1) M/uL Hgb 13.3 L (14.0-18.0) g/dL Hct 39.3 L (42-52) % MCV 89.9 (80-100) fL MCH 30.4 (25-34) pg MCHC 33.8 (32-36) g/dL RDW Std Deviation 45.7 (36.4-46.3) fL RDW Coeff of Ivone 13.9 (11.5-14.5) % Plt Count 205 (130-400) K/uL MPV 10.4 (7.4-10.4) fL Immature Gran % (Auto) 0.2 % Neut % (Auto) 67.5 % Lymph % (Auto) 19.8 % [place] % (Auto) 9.6 % Eos % (Auto) 2.7 % Baso % (Auto) 0.2 % Neut # (Auto) 5.81 (1.4-6.5) K/uL Lymph # (Auto) 1.71 (1.2-3.4) K/uL [place] # (Auto) 0.83 H (0.11-0.59) K/uL Eos # (Auto) 0.23 (0-0.5) K/uL Baso # (Auto) 0.02 (0-0.2) K/uL Immature Gran # (Auto) 0.02 (0.00-0.02) K/uL Absolute Nucleated RBC 0.03 H (0-0) K/uL Nucleated RBC % (auto) 0.4 % ESR (0-20) mm/hr PT Cancelled INR Cancelled APTT Cancelled PTT Ratio Cancelled ABG pH (7.35-7.45) ABG pCO2 (35-46) mmHg ABG pO2 (80-95) mmHg ABG HCO3 (19-24) mmol/L ABG O2 Saturation (90-95) % ABG Base Excess (-9-1.8) mEq/L Jasvir Test (Pos) Barometric Pressure mm/Hg Oxygen Given Sodium 138 (136-145) mmol/L Potassium 4.1 (3.5-5.1) mmol/L Chloride 106 (98-107) mmol/L Carbon Dioxide 24 (21-32) mmol/L Anion Gap 7.0 (3-11) BUN 13 (7-18) mg/dl Creatinine 1.05 (0.6-1.4) mg/dl Est Cr Clr Drug Dosing Not Reportable Est GFR ( Amer) 79.5 ml/min Est GFR (Non-Af Amer) 68.6 ml/min BUN/Creatinine Ratio 12.4 (10-20) Glucose 173 H (70-99) mg/dl Lactate (0.4-2.0) mmol/L Calcium 9.2 (8.5-10.1) mg/dl Magnesium 1.9 (1.8-2.4) mg/dl Total Bilirubin 0.6 (0.2-1) mg/dl AST 13 L (15-37) U/L ALT 16 (12-78) U/L Alkaline Phosphatase 57 (45-117) U/L Troponin I < 0.015 (0-0.045) ng/ml C-Reactive Protein (0-0.29) mg/dl Total Protein 7.0 (6.4-8.2) gm/dl Albumin 3.4 (3.4-5.0) gm/dl Globulin 3.6 (2.5-4.0) gm/dl Albumin/Globulin Ratio 0.9 (0.9-2) Urine Color Urine Appearance (Clear) Urine pH (4.5-7.5) Ur Specific [place] (1.000-1.030) Urine Protein (Negative) Urine Glucose (UA) (Negative) Urine Ketones (Negative) Urine Blood (Negative) Urine Nitrite (Negative) Urine Bilirubin (Negative) Urine Urobilinogen (Negative) Ur Leukocyte Esterase (Negative) Urine WBC (Auto) (0-5) /hpf Urine RBC (Auto) (0-4) /hpf U Hyaline Cast (Auto) (0-5) /lpf U Epithel Cells (Auto) (0-5) /lpf Urine Bacteria (Auto) (Negative) Lyme Disease IgG Ab (Negative) Lyme Disease IgM Ab (Negative) COVID-19 Eval Order SARS-CoV-2 (PCR) (Negative) Influ A Molecular Assay (Negative) Influ B Molecular Assay (Negative) 10/18/20 10/18/20 10/18/20 Range/Units 06:50 06:50 06:50 WBC (4.8-10.8) K/uL RBC (4.7-6.1) M/uL Hgb (14.0-18.0) g/dL Hct (42-52) % MCV (80-100) fL MCH (25-34) pg MCHC (32-36) g/dL RDW Std Deviation (36.4-46.3) fL RDW Coeff of Ivone (11.5-14.5) % Plt Count (130-400) K/uL MPV (7.4-10.4) fL Immature Gran % (Auto) % Neut % (Auto) % Lymph % (Auto) % [place] % (Auto) % Eos % (Auto) % Baso % (Auto) % Neut # (Auto) (1.4-6.5) K/uL Lymph # (Auto) (1.2-3.4) K/uL [place] # (Auto) (0.11-0.59) K/uL Eos # (Auto) (0-0.5) K/uL Baso # (Auto) (0-0.2) K/uL Immature Gran # (Auto) (0.00-0.02) K/uL Absolute Nucleated RBC (0-0) K/uL Nucleated RBC % (auto) % ESR 15 (0-20) mm/hr PT INR APTT PTT Ratio ABG pH (7.35-7.45) ABG pCO2 (35-46) mmHg ABG pO2 (80-95) mmHg ABG HCO3 (19-24) mmol/L ABG O2 Saturation (90-95) % ABG Base Excess (-9-1.8) mEq/L Jasvir Test (Pos) Barometric Pressure mm/Hg Oxygen Given Sodium (136-145) mmol/L Potassium (3.5-5.1) mmol/L Chloride (98-107) mmol/L Carbon Dioxide (21-32) mmol/L Anion Gap (3-11) BUN (7-18) mg/dl Creatinine (0.6-1.4) mg/dl Est Cr Clr Drug Dosing Est GFR ( Amer) ml/min Est GFR (Non-Af Amer) ml/min BUN/Creatinine Ratio (10-20) Glucose (70-99) mg/dl Lactate 1.3 (0.4-2.0) mmol/L Calcium (8.5-10.1) mg/dl Magnesium (1.8-2.4) mg/dl Total Bilirubin (0.2-1) mg/dl AST (15-37) U/L ALT (12-78) U/L Alkaline Phosphatase (45-117) U/L Troponin I (0-0.045) ng/ml C-Reactive Protein (0-0.29) mg/dl Total Protein (6.4-8.2) gm/dl Albumin (3.4-5.0) gm/dl Globulin (2.5-4.0) gm/dl Albumin/Globulin Ratio (0.9-2) Urine Color Urine Appearance (Clear) Urine pH (4.5-7.5) Ur Specific [place] (1.000-1.030) Urine Protein (Negative) Urine Glucose (UA) (Negative) Urine Ketones (Negative) Urine Blood (Negative) Urine Nitrite (Negative) Urine Bilirubin (Negative) Urine Urobilinogen (Negative) Ur Leukocyte Esterase (Negative) Urine WBC (Auto) (0-5) /hpf Urine RBC (Auto) (0-4) /hpf U Hyaline Cast (Auto) (0-5) /lpf U Epithel Cells (Auto) (0-5) /lpf Urine Bacteria (Auto) (Negative) Lyme Disease IgG Ab Negative (Negative) Lyme Disease IgM Ab Negative (Negative) COVID-19 Eval Order SARS-CoV-2 (PCR) (Negative) Influ A Molecular Assay (Negative) Influ B Molecular Assay (Negative) 10/18/20 10/18/20 10/18/20 Range/Units 06:50 07:50 09:05 WBC (4.8-10.8) K/uL RBC (4.7-6.1) M/uL Hgb (14.0-18.0) g/dL Hct (42-52) % MCV (80-100) fL MCH (25-34) pg MCHC (32-36) g/dL RDW Std Deviation (36.4-46.3) fL RDW Coeff of Ivone (11.5-14.5) % Plt Count (130-400) K/uL MPV (7.4-10.4) fL Immature Gran % (Auto) % Neut % (Auto) % Lymph % (Auto) % [place] % (Auto) % Eos % (Auto) % Baso % (Auto) % Neut # (Auto) (1.4-6.5) K/uL Lymph # (Auto) (1.2-3.4) K/uL [place] # (Auto) (0.11-0.59) K/uL Eos # (Auto) (0-0.5) K/uL Baso # (Auto) (0-0.2) K/uL Immature Gran # (Auto) (0.00-0.02) K/uL Absolute Nucleated RBC (0-0) K/uL Nucleated RBC % (auto) % ESR (0-20) mm/hr PT INR APTT PTT Ratio ABG pH (7.35-7.45) ABG pCO2 (35-46) mmHg ABG pO2 (80-95) mmHg ABG HCO3 (19-24) mmol/L ABG O2 Saturation (90-95) % ABG Base Excess (-9-1.8) mEq/L Jasvir Test (Pos) Barometric Pressure mm/Hg Oxygen Given Sodium (136-145) mmol/L Potassium (3.5-5.1) mmol/L Chloride (98-107) mmol/L Carbon Dioxide (21-32) mmol/L Anion Gap (3-11) BUN (7-18) mg/dl Creatinine (0.6-1.4) mg/dl Est Cr Clr Drug Dosing Est GFR ( Amer) ml/min Est GFR (Non-Af Amer) ml/min BUN/Creatinine Ratio (10-20) Glucose (70-99) mg/dl Lactate (0.4-2.0) mmol/L Calcium (8.5-10.1) mg/dl Magnesium (1.8-2.4) mg/dl Total Bilirubin (0.2-1) mg/dl AST (15-37) U/L ALT (12-78) U/L Alkaline Phosphatase (45-117) U/L Troponin I (0-0.045) ng/ml C-Reactive Protein 0.42 H (0-0.29) mg/dl Total Protein (6.4-8.2) gm/dl Albumin (3.4-5.0) gm/dl Globulin (2.5-4.0) gm/dl Albumin/Globulin Ratio (0.9-2) Urine Color Yellow Urine Appearance Cloudy A (Clear) Urine pH 6.0 (4.5-7.5) Ur Specific [place] 1.021 (1.000-1.030) Urine Protein 1+ H (Negative) Urine Glucose (UA) 2+ H (Negative) Urine Ketones Trace H (Negative) Urine Blood Negative (Negative) Urine Nitrite Negative (Negative) Urine Bilirubin Negative (Negative) Urine Urobilinogen Negative (Negative) Ur Leukocyte Esterase Negative (Negative) Urine WBC (Auto) 0 (0-5) /hpf Urine RBC (Auto) 0-4 (0-4) /hpf U Hyaline Cast (Auto) 1-5 (0-5) /lpf U Epithel Cells (Auto) 10-20 H (0-5) /lpf Urine Bacteria (Auto) Negative (Negative) Lyme Disease IgG Ab (Negative) Lyme Disease IgM Ab (Negative) COVID-19 Eval Order Covid19 at [facility] SARS-CoV-2 (PCR) (Negative) Influ A Molecular Assay (Negative) Influ B Molecular Assay (Negative) 10/18/20 10/18/20 10/18/20 Range/Units 09:05 09:05 13:18 WBC (4.8-10.8) K/uL RBC (4.7-6.1) M/uL Hgb (14.0-18.0) g/dL Hct (42-52) % MCV (80-100) fL MCH (25-34) pg MCHC (32-36) g/dL RDW Std Deviation (36.4-46.3) fL RDW Coeff of Ivone (11.5-14.5) % Plt Count (130-400) K/uL MPV (7.4-10.4) fL Immature Gran % (Auto) % Neut % (Auto) % Lymph % (Auto) % [place] % (Auto) % Eos % (Auto) % Baso % (Auto) % Neut # (Auto) (1.4-6.5) K/uL Lymph # (Auto) (1.2-3.4) K/uL [place] # (Auto) (0.11-0.59) K/uL Eos # (Auto) (0-0.5) K/uL Baso # (Auto) (0-0.2) K/uL Immature Gran # (Auto) (0.00-0.02) K/uL Absolute Nucleated RBC (0-0) K/uL Nucleated RBC % (auto) % ESR (0-20) mm/hr PT INR APTT PTT Ratio ABG pH 7.43 (7.35-7.45) ABG pCO2 37 (35-46) mmHg ABG pO2 64 L (80-95) mmHg ABG HCO3 24 (19-24) mmol/L ABG O2 Saturation 94.0 (90-95) % ABG Base Excess 0.1 (-9-1.8) mEq/L Jasvir Test Pos (Pos) Barometric Pressure 729.5 mm/Hg Oxygen Given ROOM AIR Sodium (136-145) mmol/L Potassium (3.5-5.1) mmol/L Chloride (98-107) mmol/L Carbon Dioxide (21-32) mmol/L Anion Gap (3-11) BUN (7-18) mg/dl Creatinine (0.6-1.4) mg/dl Est Cr Clr Drug Dosing Est GFR ( Amer) ml/min Est GFR (Non-Af Amer) ml/min BUN/Creatinine Ratio (10-20) Glucose (70-99) mg/dl Lactate (0.4-2.0) mmol/L Calcium (8.5-10.1) mg/dl Magnesium (1.8-2.4) mg/dl Total Bilirubin (0.2-1) mg/dl AST (15-37) U/L ALT (12-78) U/L Alkaline Phosphatase (45-117) U/L Troponin I (0-0.045) ng/ml C-Reactive Protein (0-0.29) mg/dl Total Protein (6.4-8.2) gm/dl Albumin (3.4-5.0) gm/dl Globulin (2.5-4.0) gm/dl Albumin/Globulin Ratio (0.9-2) Urine Color Urine Appearance (Clear) Urine pH (4.5-7.5) Ur Specific [place] (1.000-1.030) Urine Protein (Negative) Urine Glucose (UA) (Negative) Urine Ketones (Negative) Urine Blood (Negative) Urine Nitrite (Negative) Urine Bilirubin (Negative) Urine Urobilinogen (Negative) Ur Leukocyte Esterase (Negative) Urine WBC (Auto) (0-5) /hpf Urine RBC (Auto) (0-4) /hpf U Hyaline Cast (Auto) (0-5) /lpf U Epithel Cells (Auto) (0-5) /lpf Urine Bacteria (Auto) (Negative) Lyme Disease IgG Ab (Negative) Lyme Disease IgM Ab (Negative) COVID-19 Eval Order SARS-CoV-2 (PCR) NEGATIVE (Negative) Influ A Molecular Assay Negative (Negative) Influ B Molecular Assay Negative (Negative) Imaging Data Radiologist's Impression: Chest X-Ray 10/18/20 07:55 XR chest 1V portable CLINICAL HISTORY: Sepsis. COMPARISON STUDY: Chest radiograph June 14, 2019. FINDINGS: Lung volumes are normal. There is no pneumothorax or pleural effusion. Cardiomegaly is unchanged. Left midlung density is unchanged. Postoperative findings are noted. This favors scarring There is no consolidation. There is pulmonary vascular congestion. IMPRESSION: 1. No consolidation identified. 2. Mild cardiomegaly with pulmonary vascular congestion. ACT 112: Negative or not required by law. Electronically signed by: Daryl Rowland M.D. 10/18/2020 8:[address] 10/18/20 07:55 CT head/brain wo con CLINICAL HISTORY: Acute change in mental status HEAD TRAUMA COMPARISON STUDY: Noncontrast study dated 07/05/2019 TECHNIQUE: Axial CT of the brain is performed from the vertex to the skull base. IV contrast was not administered for this examination. A dose lowering technique was utilized adhering to the principles of ALARA. CT DOSE: 823.94 mGycm FINDINGS: No intra or extra-axial mass lesions are visualized. There is no CT evidence of acute cortical infarction. There is no evidence of midline shift. There is no acute hemorrhage. No calvarial fractures are visualized. There are patchy white matter hypodensities likely on a small vessel basis. There is an old lacunar infarct within the left basal ganglia. There is persistent mild ventricular dilatation, likely secondary to volume loss There is no evidence of acute sinusitis IMPRESSION: No acute intracranial findings ACT 112: Negative or not required by law. Electronically signed by: Deondre Carmona M.D. 10/18/2020 9:11 AM Abdomen/Pelvis CT 10/18/20 09:43 CT SCAN OF THE ABDOMEN AND PELVIS WITHOUT CONTRAST CLINICAL HISTORY: Fever. Trauma. COMPARISON STUDY: No previous studies for comparison. TECHNIQUE: CT scan of the abdomen and pelvis was performed from the lung bases to the proximal femurs. Images are reviewed in the axial, sagittal, and coronal planes. IV contrast was not administered for this examination. A dose lowering technique was utilized adhering to the principles of ALARA. CT DOSE: 1753.15 mGy.cm FINDINGS: Lower chest: There is respiratory motion artifact. There are no pleural effusions. There is no basilar parenchymal consolidation Liver: There is hepatic steatosis. No focal masses are visualized in this noncontrast study. Gallbladder: Unremarkable. Spleen: Normal in size and attenuation. Pancreas: There is significant respiratory motion artifact. There is fullness of the distal pancreatic tail. A mass cannot be excluded. When the patient can cooperate with breath-holding, a follow-up contrast-enhanced study is recommended. Adrenal glands: Unremarkable. Kidneys: No renal, ureteral, or bladder calculi are visualized. There is mild perinephric stranding. Bowel: There are no transition zones to indicate bowel obstruction. There is colonic diverticulosis. There is no evidence of acute diverticulitis. The appendix appears normal. Peritoneum: There is no intraperitoneal free air or abdominal ascites. There is a small fat-containing umbilical hernia. There is a small fat-containing left inguinal hernia. Vasculature: The abdominal aorta is normal in course and caliber. Adenopathy: None. Pelvic viscera: There is an indwelling Lo[place] catheter. Bladder decompressed, likely explain the apparent bladder wall thickening. Skeletal structures: No destructive osseous lesions are seen. IMPRESSION: 1. Motion compromised study 2. No evidence of bowel obstruction. No evidence of free air 3. No renal, ureteral, or bladder calculi identified 4. Diverticulosis. No evidence of acute diverticulitis 5. Normal appendix 6. Possible 36 mm pancreatic tail mass. When the patient can cooperate with breath-holding, a follow-up contrast-enhanced study is recommended. ACT 112: Positive. There are findings on this exam that require communication between the performing entity and the patient following Patient Test Result Information Act ([place] Act 112) guidelines. Electronically signed by: Deondre Carmona M.D. 10/18/2020 10:19 AM ECG Data Attestation: I personally reviewed and interpreted this ECG as follows: Indication: + altered mental status Rate (beats per minute): 95 Rhythm: + normal sinus ECG Intervals/blocks: + Left bundle branch block ECG Tell: + Normal ECG Findings: no PVCs Comparison ECG Date: from (June 2019) Change: the following changes noted (Bundle branch block is new) MDM Narrative I did evaluate the patient as noted above. The patient is unable to provide any history. He is normally not very verbal and he has been less verbal over the past 2 days. I did obtain history from the patient's daughter and his who are at bedside. IV access was established. I did place an order for continuous cardiac monitoring. The monitor showed normal sinus rhythm at a rate of 98 bpm. I did order and personally review the patient's 12-lead EKG as described above. I did order and personally reviewed the images of the patient's chest x-ray as described above. He has some cardiomegaly but no acute infiltrate. I did order a urine analysis. He does not have an infection. I did order and review the patient's blood work as noted in the electronic medical record. White blood cell count is not elevated. CRP slightly elevated at 0.42. Hemoglobin is 13.3. Platelet count is 205. Electrolytes and LFTs are unremarkable. Troponin is negative. Lactate is 1.3. Lyme and influenza testing are negative. COVID-19 testing is negative. I did order a CT of the head, abdomen and pelvis. I did review the images myself as well as the radiology report as described above. There is no evidence of acute intracranial abnormality. No acute abnormality in the abdomen pelvis is found although he does have a possible pancreatic mass. The patient was given Ativan 0.5 mg IV due to significant agitation and inability to obtain the necessary tests. He did calm down significantly after receiving the medication. On reassessment he is still somnolent. I did discuss the test results with the patient's daughter and . The cause of his fever is unclear at this time. He was given IV Tylenol for his fever. I did recommend hospitalization. I did discuss the case with the hospitalist and senior case manager. The hospitalist and I talked about obtaining a lumbar puncture on the patient to rule out meningitis. We both separately discussed this with the patient's . I did review risks and benefits of lumbar puncture with her as well as meningitis with her. She did not wish to have the lumbar puncture at this time. She then spoke to Dr. Stuart and wanted to talk about it with her children. She did go and talk to her children about it and again declined lumbar puncture at this time. The patient was admitted to the hospitalist service. They will treat him with broad-spectrum antibiotics. Impression & Plan Acute alteration in mental status, Acute febrile illness Discharge Plan Visit Data Chief Complaint: Illness Stated Complaint: AMS, FEVER ED Provider: Josue Ocampo Discharge Problem: Acute alteration in mental status, Acute febrile illness Patient Disposition: Admitted As Inpatient Forms Stand Alone Forms: [facility] Prescriptions Prescriptions: No Action rosuvastatin 40 mg tablet 40 mg PO HS RF: 0 cyanocobalamin (vitamin B-12) 1,000 mcg tablet 1,000 mcg PO QDD Qty: 100 RF: 0 metformin 1,000 mg tablet 1,000 mg PO QAM RF: 0 metoprolol tartrate 50 mg Tablet 25 mg PO BID RF: 0 insulin asp prt-insulin aspart [Novolog Mix 70-30FlexPen U-100] 100 unit/mL (70-30) Insulin Pen 58 unit SUBCUT BIDM RF: 0 Ozempic 1 mg/dose (2 mg/1.5 mL) Pen Injector 1 mg SUBCUT WK RF: 0 aspirin-dipyridamole [Aggrenox] 25-200 mg Capsule, Er Multiphase 12 Hr 1 cap PO BIDM RF: 0 insulin aspart U-100 [Novolog Flexpen U-100 Insulin] 100 unit/mL (3 mL) Insulin Pen 0 unit subcut UD RF: 0 trazodone 100 mg tablet 100 mg PO QDD RF: 0 fenofibrate nanocrystallized 48 mg Tablet 48 mg PO DAILY RF: 0 cholecalciferol (vitamin D3) 25 mcg (1,000 unit) Tablet 25 mcg PO DAILY RF: 0 Referrals Referrals: Jabari Rodriguez MD [Primary Care Provider] -
--- NOTE | 2020-10-18 08:25 | XRay Report ---
XR chest 1V portable CLINICAL HISTORY: Sepsis. COMPARISON STUDY: Chest radiograph June 14, 2019. FINDINGS: Lung volumes are normal. There is no pneumothorax or pleural effusion. Cardiomegaly is unch anged. Left midlung density is unchanged. Postoperative findings are noted. This favors scarring Ther e is no consolidation. There is pulmonary vascular congestion. IMPRESSION: 1. No consolidation identified. 2. Mild cardiomegaly with pulmonary vascular congestion. ACT 112: Negative or not required by law. Electronically signed by: Daryl Rowland M.D. 10/18/2020 8:24 AM
[2020-10-18 08:28] LABS: Alanine Aminotransferase 16 U/L (12-78); Albumin Level 3.4 gm/dl (3.4-5.0); Aspartate Aminotransferase 13 U/L (15-37); BUN Creatinine Ratio 12.4 (10-20); Blood Urea Nitrogen 13 mg/dl (7-18); Calcium 9.2 mg/dl (8.5-10.1); Carbon Dioxide 24 mmol/L (21-32); Chloride 106 mmol/L (98-107); Est GFR (African American) 79.5 ml/min; Est GFR (Non-African American) 68.6 ml/min; Glucose 173 mg/dl (70-99); Magnesium 1.9 mg/dl (1.8-2.4); Potassium 4.1 mmol/L (3.5-5.1); Sodium 138 mmol/L (136-145)
[2020-10-18 08:33] LABS: Albumin Globulin Ratio 0.9 (0.9-2); Alkaline Phosphatase 57 U/L (45-117); Bilirubin,Total 0.6 mg/dl (0.2-1); Globulin 3.6 gm/dl (2.5-4.0); Troponin I < 0.015 ng/ml (0-0.045)
[2020-10-18 08:42] LABS: Appearance Urine Cloudy (Clear); Bacteria Urine Automated Negative (Negative); Bilirubin Urine Negative (Negative); Blood Urine Negative (Negative); Color Urine Yellow; Glucose Urine UA 2+ (Negative); Ketones Urine Trace (Negative); Leukocyte Esterase Urine Negative (Negative); Nitrite Urine Negative (Negative); Protein Urine 1+ (Negative); RBC Urine Automated 0-4 /hpf (0-4); Specific Gravity Urine 1.021 (1.000-1.030); Urobilinogen Urine Negative (Negative); WBC Urine Automated 0 /hpf (0-5)
--- NOTE | 2020-10-18 09:12 | CT Scan Report ---
CT head/brain wo con CLINICAL HISTORY: Acute change in mental status HEAD TRAUMA COMPARISON STUDY: Noncontrast study dated 07/05/2019 TECHNIQUE: Axial CT of the brain is performed from the vertex to the skull base. IV contrast was not administered for this examination. A dose lowering technique was utilized adhering to the principles of ALARA. CT DOSE: 823.94 mGycm FINDINGS: No intra or extra-axial mass lesions are visualized. There is no CT evidence of acute cortical infarc tion. There is no evidence of midline shift. There is no acute hemorrhage. No calvarial fractures ar e visualized. There are patchy white matter hypodensities likely on a small vessel basis. There is an old lacunar i nfarct within the left basal ganglia. There is persistent mild ventricular dilatation, likely secondary to volume loss There is no evidence of acute sinusitis IMPRESSION: No acute intracranial findings ACT 112: Negative or not required by law. Electronically signed by: Deondre Carmona M.D. 10/18/2020 9:11 AM
--- NOTE | 2020-10-18 10:21 | CT Scan Report ---
CT SCAN OF THE ABDOMEN AND PELVIS WITHOUT CONTRAST CLINICAL HISTORY: Fever. Trauma. COMPARISON STUDY: No previous studies for comparison. TECHNIQUE: CT scan of the abdomen and pelvis was performed from the lung bases to the proximal femurs . Images are reviewed in the axial, sagittal, and coronal planes. IV contrast was not administered fo r this examination. A dose lowering technique was utilized adhering to the principles of ALARA. CT DOSE: 1753.15 mGy.cm FINDINGS: Lower chest: There is respiratory motion artifact. There are no pleural effusions. There is no basila r parenchymal consolidation Liver: There is hepatic steatosis. No focal masses are visualized in this noncontrast study. Gallbladder: Unremarkable. Spleen: Normal in size and attenuation. Pancreas: There is significant respiratory motion artifact. There is fullness of the distal pancreati c tail. A mass cannot be excluded. When the patient can cooperate with breath-holding, a follow-up co ntrast-enhanced study is recommended. Adrenal glands: Unremarkable. Kidneys: No renal, ureteral, or bladder calculi are visualized. There is mild perinephric stranding. Bowel: There are no transition zones to indicate bowel obstruction. There is colonic diverticulosis. There is no evidence of acute diverticulitis. The appendix appears normal. Peritoneum: There is no intraperitoneal free air or abdominal ascites. There is a small fat-containin g umbilical hernia. There is a small fat-containing left inguinal hernia. Vasculature: The abdominal aorta is normal in course and caliber. Adenopathy: None. Pelvic viscera: There is an indwelling Loera catheter. Bladder decompressed, likely explain the appar ent bladder wall thickening. Skeletal structures: No destructive osseous lesions are seen. IMPRESSION: 1. Motion compromised study 2. No evidence of bowel obstruction. No evidence of free air 3. No renal, ureteral, or bladder calculi identified 4. Diverticulosis. No evidence of acute diverticulitis 5. Normal appendix 6. Possible 36 mm pancreatic tail mass. When the patient can cooperate with breath-holding, a follow- up contrast-enhanced study is recommended. ACT 112: Positive. There are findings on this exam that require communication between the performing entity and the patient following Patient Test Result Information Act ([place] Act 112) guidelines. Electronically signed by: Deondre Carmona M.D. 10/18/2020 10:19 AM
[2020-10-18 10:39] LABS: Lyme Ab IgG w/WB Rflx Negative (Negative); Lyme Ab IgM w/WB Rflx Negative (Negative)
[2020-10-18 10:49] LABS: Influenza A virus by PCR Negative (Negative); Influenza B virus by PCR Negative (Negative)
--- NOTE | 2020-10-18 12:40 | History & Physical Report ---
Date of Service October 18, 2020 Assessment & Plan (1) AMS (altered mental status): (2) Fever: -admit to tele -patient presenting from home with increased confusion and fever, advanced dementia at baseline -in the ED, febrile 38.5 -no identifiable source of infection at this time -given AMS, meningitis considered however patient very restless with advanced dementia, patient's declines LP and further imaging with brain MRI -blood and urine cultures -empiric IV ceftriaxone, IV vancomycin, IV ampicillin, IV acyclovir -consider neuro eval -NPO until mental status improves -Possible pancreatic tail lesion noted on CT ABD/pelvis - reports patient unable to tolerate MRI, therefore unable to do MRCP. Check Ca 19-9. ?? if malignancy is contributing to fever (3) DM2 (diabetes mellitus, type 2): -hgb a1c 9.4 09/2020 -pharmacy glycemic consult (4) CAD (coronary artery disease): -holding PO meds until mental status improves (resume Aggrenox, beta blake, and statin when able) (5) History of recurrent TIAs: -resume Aggrenox and statin when able (6) Dementia: -resume home meds when able (7) DVT prophylaxis: -SQ Heparin History of Present Illness Chief Complaint: Fever, Altered Mental Status Primary Care Provider: Jabari Rodriguez MD 75 year old name with [facility] dementia, CAD s/p NOHEMY to RCA, history of CVA/recurrent TIAs, DM type II on insulin, carotid stenosis s/p right CEA, and other problems listed below who presents to the ED for evaluation of fever and altered mental status. Patient has advanced dementia and history is obtained from patient's who at the bedside. She reports that yesterday morning patient seemed more confused than usual. He also had difficulty feeding himself breakfast. Patient went back to bed in the afternoon. reports she found him on the floor. They were unable to get him up until more help arrived a few hours later. He was put back in bed. reports he was very restless all night. This morning he had a fever. EMS was called and patient was brought to the ED for further evaluation. reports a chronic cough which is unchanged from baseline. Denies any noticeable unilateral weakness. No GI symptoms reported. In the ED, patient is febrile at 38.5. Labs unremarkable. CXR, head CT, CT abd/pelvis do not show any acute findings. Patient was given IV Tylenol and IV Lorazepam. Allergies Allergy/AdvReac Type Severity Reaction Status Date / Time clopidogrel Allergy Intermediate Skin Verified 10/18/20 09:02 peeling on hands. Home Medications Medication Instructions Recorded Confirmed Type cyanocobalamin (vitamin B-12) 1,000 mcg PO QDD #100 tab 11/22/18 10/18/20 History 1,000 mcg tablet rosuvastatin 40 mg tablet 40 mg PO HS tab 11/22/18 10/18/20 History metformin 1,000 mg tablet 1,000 mg PO QAM tab 12/18/18 10/18/20 History Ozempic 1 mg SUBCUT WK 06/14/19 10/18/20 History insulin asp prt-insulin aspart 58 unit SUBCUT BIDM 06/14/19 10/18/20 History [Novolog Mix 70-30FlexPen U-100] metoprolol tartrate 25 mg PO BID 06/14/19 10/18/20 History aspirin-dipyridamole [Aggrenox] 1 cap PO BIDM 10/18/20 10/18/20 History cholecalciferol (vitamin D3) 25 mcg PO DAILY 10/18/20 10/18/20 History fenofibrate nanocrystallized 48 mg PO DAILY 10/18/20 10/18/20 History insulin aspart U-100 [Novolog 0 unit SUBCUT UD 10/18/20 10/18/20 History Flexpen U-100 Insulin] trazodone 100 mg PO QDD 10/18/20 10/18/20 History Past Med/Surg History Medical History Adhesive capsulitis of shoulder CAD (coronary artery disease) 04/2013 - NSTEMI s/p NOHEMY to mid RCA Carotid stenosis Chronic cerebral ischemia Chronic rhinitis CKD (chronic kidney disease), stage III COPD, moderate Dementia Diabetic polyneuropathy associated with type 2 diabetes mellitus Diastolic dysfunction DM2 (diabetes mellitus, type 2) Dyslipidemia History of left heart catheterization (LHC) History of recurrent TIAs HLD (hyperlipidemia) Hypertriglyceridemia Hypoxemia Mixed Alzheimer's and vascular dementia Nocturnal hypoxemia NSTEMI (non-ST elevated myocardial infarction) CAROLYNN (obstructive sleep apnea) TIA (transient ischemic attack) Vascular dementia Surgical History H/O carotid endarterectomy H/O shoulder surgery History of cataract surgery History of heart surgery History of hernia repair History of lung biopsy History of tonsillectomy S/P drug eluting coronary stent placement "2012" Family History Mother Myocardial infarction Father Myocardial infarction Diabetes Stroke Social History Smoking Status: Former smoker Tobacco Type: Cigarettes Second Hand Exposure: No; Do You Dip or Chew Tobacco: No; Tobacco Cessation Education Requested by Patient: No Hx Alcohol Use: No Hx Substance Use: No Preferred Language: Persian Communication Ability: Impaired Iron Pourer Required: No Beliefs That Will Affect Care: None marital status: Current Living Situation: Spouse and Family current occupational status: retired Other Information That Helps Us Care for You: No Feels Safe at Home: Yes Safety Concerns: Feels Safe At This Time Assistive Devices: Glasses, Walker and Wheelchair Review of Systems Review of Systems: Unobtainable due to cognitive status Results & Data Results & Data ([facility]) Vital Signs (Past 12 Hours) Vital Signs Temp Pulse Resp BP Pulse Ox 10/18/20 12:31 98 H 119/91 10/18/20 12:00 83 150/78 H 96 10/18/20 11:30 79 14 136/54 L 96 10/18/20 11:00 77 15 129/59 L 95 10/18/20 10:30 76 12 117/41 L 93 10/18/20 10:10 38.1 C H 84 14 96 10/18/20 09:31 85 138/60 93 10/18/20 08:30 90 15 168/118 H 10/18/20 08:00 100 H 19 158/99 H 10/18/20 07:55 89 L 10/18/20 07:30 83 14 146/59 H 90 10/18/20 07:28 84 12 147/58 H 93 10/18/20 07:14 38.5 C H 86 16 147/58 H 89 L Laboratory Results Short CBC 10/18/20 Range/Units 06:50 WBC 8.62 (4.8-10.8) K/uL Hgb 13.3 L (14.0-18.0) g/dL Hct 39.3 L (42-52) % Plt Count 205 (130-400) K/uL BMP 10/18/20 06:50 Sodium 138 Potassium 4.1 Chloride 106 Carbon Dioxide 24 BUN 13 Creatinine 1.05 Glucose 173 H Calcium 9.2 Cardiac Enzymes 10/18/20 Range/Units 06:50 Troponin I < 0.015 (0-0.045) ng/ml Liver Function 10/18/20 Range/Units 06:50 Total Bilirubin 0.6 (0.2-1) mg/dl AST 13 L (15-37) U/L ALT 16 (12-78) U/L Alkaline Phosphatase 57 (45-117) U/L Albumin 3.4 (3.4-5.0) gm/dl Urine 10/18/20 Range/Units 07:50 Urine Color Yellow Urine Appearance Cloudy A (Clear) Urine pH 6.0 (4.5-7.5) Ur Specific [place] 1.021 (1.000-1.030) Urine Protein 1+ H (Negative) Urine Glucose (UA) 2+ H (Negative) Diagnostic Findings Chest X-Ray 10/18/20 07:55 XR chest 1V portable CLINICAL HISTORY: Sepsis. COMPARISON STUDY: Chest radiograph June 14, 2019. FINDINGS: Lung volumes are normal. There is no pneumothorax or pleural effusion. Cardiomegaly is unchanged. Left midlung density is unchanged. Postoperative findings are noted. This favors scarring There is no consolidation. There is pulmonary vascular congestion. IMPRESSION: 1. No consolidation identified. 2. Mild cardiomegaly with pulmonary vascular congestion. ACT 112: Negative or not required by law. Electronically signed by: Daryl Rowland M.D. 10/18/2020 8:[address] 10/18/20 07:55 CT head/brain wo con CLINICAL HISTORY: Acute change in mental status HEAD TRAUMA COMPARISON STUDY: Noncontrast study dated 07/05/2019 TECHNIQUE: Axial CT of the brain is performed from the vertex to the skull base. IV contrast was not administered for this examination. A dose lowering technique was utilized adhering to the principles of ALARA. CT DOSE: 823.94 mGycm FINDINGS: No intra or extra-axial mass lesions are visualized. There is no CT evidence of acute cortical infarction. There is no evidence of midline shift. There is no acute hemorrhage. No calvarial fractures are visualized. There are patchy white matter hypodensities likely on a small vessel basis. There is an old lacunar infarct within the left basal ganglia. There is persistent mild ventricular dilatation, likely secondary to volume loss There is no evidence of acute sinusitis IMPRESSION: No acute intracranial findings ACT 112: Negative or not required by law. Electronically signed by: Deondre Carmona M.D. 10/18/2020 9:11 AM Abdomen/Pelvis CT 10/18/20 09:43 CT SCAN OF THE ABDOMEN AND PELVIS WITHOUT CONTRAST CLINICAL HISTORY: Fever. Trauma. COMPARISON STUDY: No previous studies for comparison. TECHNIQUE: CT scan of the abdomen and pelvis was performed from the lung bases to the proximal femurs. Images are reviewed in the axial, sagittal, and coronal planes. IV contrast was not administered for this examination. A dose lowering technique was utilized adhering to the principles of ALARA. CT DOSE: 1753.15 mGy.cm FINDINGS: Lower chest: There is respiratory motion artifact. There are no pleural effusions. There is no basilar parenchymal consolidation Liver: There is hepatic steatosis. No focal masses are visualized in this noncontrast study. Gallbladder: Unremarkable. Spleen: Normal in size and attenuation. Pancreas: There is significant respiratory motion artifact. There is fullness of the distal pancreatic tail. A mass cannot be excluded. When the patient can cooperate with breath-holding, a follow-up contrast-enhanced study is recommended. Adrenal glands: Unremarkable. Kidneys: No renal, ureteral, or bladder calculi are visualized. There is mild perinephric stranding. Bowel: There are no transition zones to indicate bowel obstruction. There is colonic diverticulosis. There is no evidence of acute diverticulitis. The appendix appears normal. Peritoneum: There is no intraperitoneal free air or abdominal ascites. There is a small fat-containing umbilical hernia. There is a small fat-containing left inguinal hernia. Vasculature: The abdominal aorta is normal in course and caliber. Adenopathy: None. Pelvic viscera: There is an indwelling Loera catheter. Bladder decompressed, likely explain the apparent bladder wall thickening. Skeletal structures: No destructive osseous lesions are seen. IMPRESSION: 1. Motion compromised study 2. No evidence of bowel obstruction. No evidence of free air 3. No renal, ureteral, or bladder calculi identified 4. Diverticulosis. No evidence of acute diverticulitis 5. Normal appendix 6. Possible 36 mm pancreatic tail mass. When the patient can cooperate with breath-holding, a follow-up contrast-enhanced study is recommended. ACT 112: Positive. There are findings on this exam that require communication between the performing entity and the patient following Patient Test Result Information Act ([place] Act 112) guidelines. Electronically signed by: Deondre Carmona M.D. 10/18/2020 10:19 AM Code Status & VTE Plan Code Status Patient is a DNR as per my discussion with his who is at the bedside. Supervising Physician Co-Signing Physician Notes Patient is seen and examined, care coordinated with Abi VELASQUEZ. This is 75-year-old male with a very advanced Alzheimer's dementia, history of CVA. Brought to ER by family members as patient was found to be more confused, lethargic, In the ER patient was febrile,Tachycardic, with no discrete source of infection noted, Patient unable to provide any information , remains very lethargic Patient's and daughter present at bedside, does not want any aggressive treatment, Leaning towards hospice. CT abdomen pelvis shows possible pancreatic mass. In current circumstances family does not want to do an MRCP, Fever, lethargic, metabolic encephalopathy Meningitis is a possible diagnosis, family refused to have a lumbar puncture. Family do not want to pursue MRI of brain Was ordered empirically for IV Rocephin meningitic dose, as ampicillin acyclovir and vancomycin Procalcitonin level within normal limit, Will DC ampicillin and acyclovir, continue Rocephin and vancomycin empirically, plan to discontinue antibiotic if cultures negative. CODE STATUS: DNR/DNI Disposition: T OT evaluation requested to be determined, case management consulted for discharge planning assistance
[2020-10-18 13:26] LABS: Allen Test Pos (Pos); Base Excess ABG 0.1 mEq/L (-9-1.8); HCO3 ABG 24 mmol/L (19-24); PCO2 ABG 37 mmHg (35-46); PO2 ABG 64 mmHg (80-95); pH ABG 7.43 (7.35-7.45)
[2020-10-18] MEDS ORDERED: VANCOMYCIN CONSULT ACTIVE PRN (13:32)
[2020-10-18] MEDS ORDERED: cefTRIAXone SODIUM 2,000 MG/70 ML BAG IV STA (13:37)
[2020-10-18] MEDS ORDERED: ACYCLOVIR SOD 700 MG in DEXTROSE 5% 100 ML IV STA (13:38)
[2020-10-18] MEDS ORDERED: AMPICILLIN 2,000 MG in SODIUM CHLOR 0.9% AD-VAN 100 ML IV STA (13:38)
[2020-10-18] MEDS ORDERED: VANCOMYCIN HCL 2,750 MG in SODIUM CHLORIDE 0.9% 500 ML IV STA (13:39)
[2020-10-18] MEDS ORDERED: AMPICILLIN 2,000 MG in SODIUM CHLOR 0.9% AD-VAN 100 ML IV SCH ×2 (13:45→20:00)
[2020-10-18] MEDS ORDERED: ACYCLOVIR SOD 700 MG in DEXTROSE 5% 100 ML IV SCH (13:45)
--- NOTE | 2020-10-18 15:06 | Electrocardiogram Report ---
Test Reason : Blood Pressure : / mmHG Vent. Rate : 095 BPM Atrial Rate : 095 BPM P-R Int : 156 ms QRS Dur : 134 ms QT Int : 390 ms P-R-T Axes : 077 080 012 degrees QTc Int : 490 ms Normal sinus rhythm Left bundle branch block Cannot rule out Septal infarct (cited on or before 18-OCT-2020) Abnormal ECG When compared with ECG of 14-JUN-2019 11:20, QRS duration has increased Questionable change in initial forces of Anteroseptal leads Non-specific change in ST segment in Inferior leads QT has lengthened Confirmed by Jeremiah Bain ([id number]) on 10/18/2020 3:06:27 PM Referred By: REFERRED SELF Confirmed By:Jeremiah Bain
[2020-10-18] MEDS ORDERED: ACETAMINOPHEN 325 MG TAB PO PRN (15:09)
[2020-10-18] MEDS ORDERED: PHARMACY GLYCEMIC MGMT CONSULT PRN (15:34)
[2020-10-18] MEDS ORDERED: ACETAMINOPHEN 1,000 MG/100 ML VIAL IV PRN (16:05)
[2020-10-18] MEDS ORDERED: OLANZapine 10 MG/2.1 ML SDV IM PRN (16:08)
[2020-10-18] MEDS ORDERED: CARBOHYDRATES FOR HYPOGLYCEMIA PO PRN (16:30)
[2020-10-18] MEDS ORDERED: GLUCOSE 40% GEL 15 GM TUBE PO PRN (16:30)
[2020-10-18] MEDS ORDERED: GLUCAGON FOR INJ 1 MG VIAL IM PRN (16:30)
[2020-10-18] MEDS ORDERED: DEXTROSE 50% 50 ML SYRINGE IV PRN (16:30)
[2020-10-18] MEDS ORDERED: GLUCOSE 10 TABS/TUBE PO PRN (16:30)
[2020-10-18] MEDS: cefTRIAXone SODIUM 2,000 MG in DEXTROSE 5% 50 ML IV SCH (16:38)
[2020-10-18] MEDS: HEPARIN SOD 5,000 UNIT/0.5 ML VIAL SQ SCH ×2 (16:39→22:00)
[2020-10-18] MEDS: INSULIN ASPART 100 UNITS/ML 3 ML PEN SC SCH (17:34)
--- NOTE | 2020-10-18 18:47 | Pharmacy Report ---
Pharmacy Abx Dose Short Note - Date of Service October 18, 2020 - Assessment & Plan Assessment 75 year old M receiving IV Vancomycin, Ampicillin (not a consult), Ceftriaxone (not a consult), and Acyclovir (not a consult) for treatment of empiric, possible meningitis Day # 1 of antimicrobial therapy. * Renal function appears to be at baseline; sCr = 1.05 mg/dL with estimated CrCl ~72 mL/min * Estimated pharmacokinetic parameters: * Ke ~0.064/hr, T1/2 ~10.8 hrs * Vancomycin 2750mg (~26mg/kg) IV was given x 1 as a loading dose Plan Vancomycin * Initiate Vancomycin 1500mg (~14mg/kg) IV q12 as maintenance regimen * Goal trough level for empiric : 15 to 20 mcg/mL * Given empiric indication, will not order a trough at this time; if Vancomycin is to be continued >48 hours, will order trough to assess dosing regimen Pharmacy will continue to follow and will adjust dose/frequency as necessary. Thank you.
[2020-10-18] MEDS ORDERED: INSULIN GLARGINE SOLOSTAR 100 UNITS/ML 3 ML PEN SC ONE (21:00)
[2020-10-19] MEDS ORDERED: ACYCLOVIR SOD 700 MG in DEXTROSE 5% 100 ML IV SCH
[2020-10-19] MEDS: INSULIN ASPART 100 UNITS/ML 3 ML PEN SC SCH ×3 (00:37→12:37)
[2020-10-19] MEDS: VANCOMYCIN HCL 1,500 MG in SODIUM CHLORIDE 0.9% 500 ML IV SCH ×2 (04:24→17:14)
[2020-10-19] MEDS: cefTRIAXone SODIUM 2,000 MG in DEXTROSE 5% 50 ML IV SCH ×2 (04:24→17:13)
[2020-10-19] MEDS: HEPARIN SOD 5,000 UNIT/0.5 ML VIAL SQ SCH ×2 (04:25→17:16)
[2020-10-19 05:52] LABS: Hematocrit (blood only) 39.2 % (42-52); Hemoglobin 13.2 g/dL (14.0-18.0); Mean Corpuscular Hemoglobin 30.6 pg (25-34); Mean Corpuscular Hgb Conc 33.7 g/dL (32-36); Mean Corpuscular Volume 90.7 fL (80-100); Mean Platelet Volume 10.3 fL (7.4-10.4); Platelet Count 171 K/uL (130-400); RDW Coefficient of Variation 13.9 % (11.5-14.5); RDW Standard Deviation 46.3 fL (36.4-46.3); Red Blood Count 4.32 M/uL (4.7-6.1); White Blood Count 7.92 K/uL (4.8-10.8)
[2020-10-19 06:24] LABS: BUN Creatinine Ratio 13.6 (10-20); Calcium 8.9 mg/dl (8.5-10.1); Creatinine Clr Calc Pharmacy 76.2 ml/min; Est GFR (African American) 85.4 ml/min; Est GFR (Non-African American) 73.7 ml/min; Potassium 4.4 mmol/L (3.5-5.1)
[2020-10-19] MEDS ORDERED: INSULIN GLARGINE SOLOSTAR 100 UNITS/ML 3 ML PEN SC SCH (09:00)
--- NOTE | 2020-10-19 09:21 | Pharmacy Report ---
Pharmacy Glycemic Short Note 2 - Date of Service October 19, 2020 - Glycemic Short BSG Results (Last 24 hours): 10/18/20 10/18/20 10/19/20 17:13 20:22 00:32 Glucose POC Glucose 221 H 141 H 169 H 10/19/20 10/19/20 10/19/20 04:26 05:23 07:15 Glucose 199 H POC Glucose 192 H 182 H OUTPATIENT ANTIDIABETIC REGIMEN: * NovoLog mix 70/30 insulin; 58 units SQ BIDM * NovoLog SSI * Ozempic * A1c = pending 10/19/20 ASSESSMENT: * 75yo T2DM male with unknown degree of outpatient control - A1c pending * Pt with baseline dementia and admitted with AMS - will start with conservative BSG control until mentation improves * Pt NPO- will change outpatient pre-mixed insulin to SQ basal bolus. Typically we use NPH + NovoLog when patients are on premixed insulin as an outpatient but will use Lantus instead since it is peakless which is preferred in NPO * Will start with weight based dosing since degree of outpatient control and outpatient regimen compliance unknown PLAN FOR INPATIENT GLYCEMIC CONTROL: * Hold outpatient pre-mixed insulin and GLP1 * Basal insulin * Lantus 15 units SQ BID * Bolus insulin * NovoLog per scale ACHS or Q6hrs while NPO * Goal Range: Low 110 mg/dL - High 140 mg/dL * Correction Factor: 20 mg/dL/unit * Nutritional / Prandial insulin per carb ratio of 1 unit per 7 grams CHO consumed PLAN FOR DISCHARGE: * TBD based on A1c and goals of care
[2020-10-19 16:06] VITALS: BP 162/80; PULSE 93; TEMP 99.5; O2SAT 92
[2020-10-19] MEDS ORDERED: FUROSEMIDE 40 MG/4 ML VIAL IV ONE (16:12)
[2020-10-19] MEDS ORDERED: ONDANSETRON INJ 2 MG/ML 2 ML VIAL IV PRN (16:17)
[2020-10-19] MEDS ORDERED: GLYCOPYRROLATE 0.2 MG/ML VIAL IV PRN (16:17)
[2020-10-19] MEDS ORDERED: ONDANSETRON 4 MG OD TAB SL PRN (16:17)
[2020-10-19] MEDS ORDERED: FUROSEMIDE 40 MG in SYRINGE 0 ML IV ONE (16:30)
[2020-10-19] MEDS ORDERED: MoRPHine SULFATE 2 MG/ML CARP IV STA (16:32)
[2020-10-19] MEDS ORDERED: PROMETHAZINE HCL 12.5 MG in SODIUM CHLORIDE 0.9% 50 ML IV PRN (16:34)
[2020-10-19] MEDS ORDERED: MoRPHine SULFATE 5 MG/0.25 ML UDP PO PRN (16:34)
[2020-10-19] MEDS ORDERED: LORazepam 0.5 MG/1 ML VIAL IV PRN (16:34)
--- NOTE | 2020-10-19 16:48 | Hospitalist Progress Note ---
Date of Service October 19, 2020 Assessment & Plan (1) Hospice care: pt developed respiratory distress , progressive hypoxemia with audible rales and upper air way congestion /ratting sound seen at bedside obtunded , cyanotic appearing lips , on 2 L 02 , spo2 in 90% ordered for IV Lasix 40 mg X1 ( pt received IV fluid and IV abx ) -all ordered to be D/ronny prognosis remains grim : in setting of gram negative bacteremia , Decompensated CHF while getting IV abx shallow breathing , obtunded ( was able to respond to voice briefly yesterday afternoon ) present at bedside -given worsening clinical condition /decline -wants pt not to suffer any more option for Bipap and more diuretic tx for possible pulm congestion /decompensated CHF-discussed with after talking to all her children -she wants pt to be on comfort care , goal of treatment to reduce his suffering ( at present ongoing resp distress ) does not want Bipap or any other measure of tx , which may not provide significant improvement , but will make pt more in distress and uncomfortable ordered to change goal of care to comfort care /hospice only all IV ABX , lab draw d//ronny ordered IV morphine x1 , IV glycopyrrolate for increased secretion , pt will be transferred to medical floor pt is DNR/DNI over all prognosis terminal Admission and Anticipated Discharge Date Admission Date: October 18, 2020 Subjective developed worsening of resp failure obtunded family decieded to procedd to comfort care Physical Exam Physical Exam: minimume exam for comfort care : obtunded , with coarse wet cough upper airway rattling sound with increased secretion in resp distress given Iv morphine as part of comfort care pt evaluated few hrs back , family at bedside pt appears to be much more comfortable not struggling to breath cont PrN med for comfort care /symptoms control Results & Data Results & Data ([facility]) Vital Signs (Past 12 Hours) Vital Signs Temp Pulse Resp BP Pulse Ox 10/19/20 16:05 37.5 C 93 H 18 162/80 H 92 10/19/20 11:32 37.4 C 88 24 159/77 H 96 10/19/20 07:16 36.6 C 90 22 171/88 H 97
[2020-10-19] MEDS: ATROPINE SULFATE 1% OP SOLN 5 ML BTL SL PRN ×4 (17:40→22:40)
[2020-10-19] MEDS: MoRPHine SULFATE 2 MG/ML CARP IV PRN ×3 (19:15→23:24)
[2020-10-20] MEDS: ATROPINE SULFATE 1% OP SOLN 5 ML BTL SL PRN ×5 (00:54→18:22)
[2020-10-20] MEDS: MoRPHine SULFATE 2 MG/ML CARP IV PRN ×3 (02:21→11:09)
[2020-10-20 07:57] LABS: Estimated Average Glucose 209 mg/dl; Hemoglobin A1C 8.9 % (4.5-5.6)
--- NOTE | 2020-10-20 11:11 | Palliative Care Consultation ---
Date of Consultation October 20, 2020 Assessment & Plan (1) Palliative care encounter: This is a 75 year old male who presented to the [facility] from home with altered mental status and fever of unknown origin. Patient does have advanced dementia and most of his ADL needs are anticipated and met by his , oSnia. She admittedly states that his care is 'becoming too much' for her. Additional PMH includes: CHF, CAD s/p NOHEMY in the RCA, CVA with multiple TIA's, DM2, and carotid stenosis. His noticed that he had a difficult time feeding himself and also found him down on the floor. Upon arrival to the ED, his temp was 38.5, but no visible source of infection. A CT scan of his abdomen showed a questionable lesion on his pancreas. CA 19-9 lab drawn. Mr. Castro's denies an MRI/LP or any other invasive intervention. Family decided to transition to comfort measures only. Palliative Medicine was consulted to assist with symptom management and confirm goals of care. I met with the patient in room 380. The pt was unable to converse, but this is typically his baseline. He was not looking at me, unable to have fixed gaze. He was rather tachypnic, using accessory muscles to breathe, and grimacing with furrowed brow. His Sonia and daughter Emma were at the bedside and felt he was uncomfortable. He has received a dose of IV Morphine at 1115. He also has stated to have audible secretions. Based on presentation, discussed starting a Morphine infusion, which family was amenable and receptive to. Further discussion held with nursing regarding appropriateness of when to adjust infusion. Mottling was noted on the patients hands and feet. All questions answered to family. The above was discussed with the hospitalist and case management. Expected for patient to pass away in the hospital. He is not stable for transfer out of hospital at this time. Palliative Medicine will follow. (2) AMS (altered mental status): (3) Senile degeneration of brain: (4) Fever: (5) Weakness: History of Present Illness Reason for Consultation: Goals of care Requesting Physician: Abi VELASQUEZ Attending Physician: Adina Reynolds MD History of Present Illness This is a 75 year old male who presented to the [facility] from home with altered mental status and fever of unknown origin. Patient does have advanced dementia and most of his ADL needs are anticipated and met by his , Sonia. She admittedly states that his care is 'becoming too much' for her. Additional PMH includes: CHF, CAD s/p NOHEMY in the RCA, CVA with multiple TIA's, DM2, and carotid stenosis. His noticed that he had a difficult time feeding himself and also found him down on the floor. Upon arrival to the ED, his temp was 38.5, but no visible source of infection. A CT scan of his abdomen showed a questionable lesion on his pancreas. CA 19-9 lab drawn. Mr. Castro's denies an MRI/LP or any other invasive intervention. Family decided to transition to comfort measures only. Palliative Medicine was consulted to assist with symptom management and confirm goals of care. Please see A/P for further details. Thanks for involving Palliative Medicine with this individual. Allergies Allergy/AdvReac Type Severity Reaction Status Date / Time clopidogrel Allergy Intermediate Skin Verified 10/18/20 09:02 peeling on hands. Home Medications Medication Instructions Recorded Confirmed Type cyanocobalamin (vitamin B-12) 1,000 mcg PO QDD #100 tab 11/22/18 10/18/20 History 1,000 mcg tablet rosuvastatin 40 mg tablet 40 mg PO HS tab 11/22/18 10/18/20 History metformin 1,000 mg tablet 1,000 mg PO QAM tab 12/18/18 10/18/20 History Ozempic 1 mg SUBCUT WK 06/14/19 10/18/20 History insulin asp prt-insulin aspart 58 unit SUBCUT BIDM 06/14/19 10/18/20 History [Novolog Mix 70-30FlexPen U-100] metoprolol tartrate 25 mg PO BID 06/14/19 10/18/20 History aspirin-dipyridamole [Aggrenox] 1 cap PO BIDM 10/18/20 10/18/20 History cholecalciferol (vitamin D3) 25 mcg PO DAILY 10/18/20 10/18/20 History fenofibrate nanocrystallized 48 mg PO DAILY 10/18/20 10/18/20 History insulin aspart U-100 [Novolog 0 unit SUBCUT UD 10/18/20 10/18/20 History Flexpen U-100 Insulin] trazodone 100 mg PO QDD 10/18/20 10/18/20 History Patient History Medical History (Updated 10/20/20 @ 11:10 by RON Kaiser) Adhesive capsulitis of shoulder CAD (coronary artery disease) 04/2013 - NSTEMI s/p NOHEMY to mid RCA Carotid stenosis Chronic cerebral ischemia Chronic rhinitis CKD (chronic kidney disease), stage III COPD, moderate Dementia Diabetic polyneuropathy associated with type 2 diabetes mellitus Diastolic dysfunction DM2 (diabetes mellitus, type 2) Dyslipidemia History of left heart catheterization (LHC) History of recurrent TIAs HLD (hyperlipidemia) Hypertriglyceridemia Hypoxemia Mixed Alzheimer's and vascular dementia Nocturnal hypoxemia NSTEMI (non-ST elevated myocardial infarction) CAROLYNN (obstructive sleep apnea) Palliative care encounter Senile degeneration of brain TIA (transient ischemic attack) Vascular dementia Weakness Surgical History H/O carotid endarterectomy H/O shoulder surgery History of cataract surgery History of heart surgery History of hernia repair History of lung biopsy History of tonsillectomy S/P drug eluting coronary stent placement "2012" Family History Mother Myocardial infarction Father Myocardial infarction Diabetes Stroke Social History Smoking Status: Former smoker Tobacco Type: Cigarettes Second Hand Exposure: No; Do You Dip or Chew Tobacco: No; Tobacco Cessation Education Requested by Patient: No Hx Alcohol Use: No Hx Substance Use: No Preferred Language: Belgian Communication Ability: Unable [employer] Supervisor Required: No Beliefs That Will Affect Care: None marital status: Current Living Situation: Spouse and Family current occupational status: retired Other Information That Helps Us Care for You: No Feels Safe at Home: Yes Safety Concerns: Feels Safe At This Time Assistive Devices: Oxygen - Continuous Review of Systems Review of Systems: [place] [facility] Assessment Scale: Pain: 2/3 by observation Shortness of breath: 3/3 by observation Anxiety: 2/3 by observation Palliative Performance Scale: 10% Physical Exam Constitutional: + acute distress and + frail appearing ENMT: Nose: + dry nasal mucous membranes Respiratory: + labored breathing, + uses accessory muscles and + tachypneic Cardiovascular: Rate/Rhythm: + tachycardic Heart Sounds: normal S1 and normal S2 Extremities: normal capillary refill Gastrointestinal (Abdomen): normal bowel sounds, soft, nontender, no hepatosplenomegaly Skin: + mottling PG Care Time/CCT Total # of Minutes Spent Total Time Spent with Patient: Total time spent is greater than 50% in coordination of care (as documented) at patient's floor/unit and/or counseling patient: 70 minutes with > 50% of that time spent assessing the patient, providing symptom and pain management and collaborating with the IDT Coding Level of Care Code 09055 Initial Inpt Care Lvl 3 Diagnoses Palliative care encounter Z51.5 AMS (altered mental status) R41.82 Senile degeneration of brain G31.1 Fever R50.9 Weakness R53.1 Time Spent (min) 70
[2020-10-20] MEDS ORDERED: STAT IV Infusion **Titration per Protocol STA (12:05)
[2020-10-20] MEDS ORDERED: MoRPHine SULF/NSS 250 MG/250 ML BTL IV SCH (12:15)
--- NOTE | 2020-10-20 16:00 | Hospitalist Progress Note ---
Date of Service October 20, 2020 Assessment & Plan (1) Hospice care: terminal status : on Iv morphine gtt due to respiratory disrtress 10/19/20 pt developed respiratory distress , progressive hypoxemia with audible rales and upper air way congestion /ratting sound seen at bedside obtunded , cyanotic appearing lips , on 2 L 02 , spo2 in 90% ordered for IV Lasix 40 mg X1 ( pt received IV fluid and IV abx ) -all ordered to be D/ronny prognosis remains grim : in setting of gram negative bacteremia , Decompensated CHF while getting IV abx shallow breathing , obtunded ( was able to respond to voice briefly yesterday afternoon ) present at bedside -given worsening clinical condition /decline -wants pt not to suffer any more option for Bipap and more diuretic tx for possible pulm congestion /decompensated CHF-discussed with after talking to all her children -she wants pt to be on comfort care , goal of treatment to reduce his suffering ( at present ongoing resp distress ) does not want Bipap or any other measure of tx , which may not provide significant improvement , but will make pt more in distress and uncomfortable ordered to change goal of care to comfort care /hospice only all IV ABX , lab draw d//ronny ordered IV morphine x1 , IV glycopyrrolate for increased secretion , pt will be transferred to medical floor pt is DNR/DNI over all prognosis terminal Admission and Anticipated Discharge Date Admission Date: October 18, 2020 Subjective remains on comfort care appreciate input from palliative care team started on IV morphine gtt for worsening of resp discomfort Physical Exam Physical Exam: minimum exam for comfort care : obtunded , on IV morphine gtt no sign of discomfort noted
--- NOTE | 2020-10-21 08:05 | Death Pronouncement Note ---
Date of Service October 21, 2020 Pronouncement Note Admission Date Admission Date: October 18, 2020 pt while on comfort care seen at bedside : no pulse , no respiratory movement , pupils bilateral dilated and fixed no heart sound pt while on hospice /comfort care time of : 7: 33 am updated over phone Contributing Factors (1) Palliative care encounter: Contributing factors: Sepsis : aspiration pneumonitis acute hypoxemic respiratory failure acute on chronic decompensated CHF advanced Dementia was on comfort care /hospice pt was DNR/DNI (2) AMS (altered mental status): (3) Senile degeneration of brain: (4) Fever: (5) Weakness: Additional Data Attending physician: Adina Reynolds MD
--- NOTE | 2020-10-21 08:06 | Discharge Summary ---
Date of Service October 21, 2020 Admission HPI Per Admitting Provider 75 year old name with PMH dementia, CAD s/p NOHEMY to RCA, history of CVA/recurrent TIAs, DM type II on insulin, carotid stenosis s/p right CEA, and other problems listed below who presents to the ED for evaluation of fever and altered mental status. Patient has advanced dementia and history is obtained from patient's who at the bedside. She reports that yesterday morning patient seemed more confused than usual. He also had difficulty feeding himself breakfast. Patient went back to bed in the afternoon. reports she found him on the floor. They were unable to get him up until more help arrived a few hours later. He was put back in bed. reports he was very restless all night. This morning he had a fever. EMS was called and patient was brought to the ED for further evaluation. reports a chronic cough which is unchanged from baseline. Denies any noticeable unilateral weakness. No GI symptoms reported. In the ED, patient is febrile at 38.5. Labs unremarkable. CXR, head CT, CT abd/pelvis do not show any acute findings. Patient was given IV Tylenol and IV Lorazepam. Principal Diagnosis Patient fever of unknown origin possible pancreatic cancer acute respiratory failure possible due to decompensated CHF with diastolic dysfunction patient while on comfort care /hospice Discharge Exam patient Discharge Data Allergies Allergy/AdvReac Type Severity Reaction Status Date / Time clopidogrel Allergy Intermediate Skin Verified 10/18/20 09:02 peeling on hands. Consultations 10/18/20 11:36 ED Decision to Admit Stat 10/18/20 15:09 Consult Palliative Care Routine Ordered Studies 10/18/20 07:55 CT head/brain wo con Stat 10/18/20 09:43 CT abd pelvis wo con Stat Hospital Course (1) Palliative care encounter: (2) AMS (altered mental status): (3) Senile degeneration of brain: (4) Fever: Fever /obtundation /metabolic encephalopathy : 75 yo M with underlying hx of severe advanced dementia , hx of TIA , CVA admitted for fever , obtundation , fell at home pt is DNR/DNI , family was reluctant for any procedure initial concern was for possible meningitis -given fever and altered mental status decline LP and MRI of brain -as his baseline quality has been very poor , with progressive decline in status in past several months CT abdomen pelvis shows incidental finding of pancratic lesion family not interested in MRCP or GI eval or biopsy Daughter and has been leaning towards hospice care pt was started on [employer] spectrum ABx next day developed acute hypoxemic resp failure , with rapid decline in clinical condition possible aspiration vs decompensated CHF Pt was transitioned to comfort care /hospice , started on IV morphine gtt for air hunger appreciate input from Palliative care pt while on comfort care /hospcie (5) Weakness: Total Time Total Time Spent Total Time Spent (In Minutes): patient Discharge Plan Discharge Items Patient Disposition:
== END 2020-10-21 07:33 | disposition expired | DRG 70 ==
LOC: ED 07:20 → 2E 13:14 → SUATTDRO 13:14 → 2E 14:45 → 3N 10-19 16:37